=== PATIENT | male | born 1960 | race Caucasian/White ===

== ENCOUNTER 2016-11-27 14:58 | Emergency (ER) | payer MEDICARE ==
[2016-11-27] MEDS ORDERED: NS 0.9% 1000 ML* 1,000 ML IV ONE (16:01)
[2016-11-27 16:12] LABS: Hematocrit 43 % (42-52); Hemoglobin 14.7 g/dl (14.0-18.0); Mean Corpuscular HGB Conc 34 g/dl (31-36); Mean Corpuscular Hemoglobin 29 pg (27-31); Mean Corpuscular Volume 85 fL (80-94); Mean Platelet Volume 8 um3 (7.4-10.4); Red Blood Count 5.07 10^6/ul (4.0-5.4); Red Cell Distribution Width 13 % (10.5-15); White Blood Count 9.4 10^3/ul (3.5-10.8)
[2016-11-27 16:26] VITALS: BP 117/76
[2016-11-27 16:31] LABS: Albumin 3.6 g/dL (3.2-5.2); BUN/Creatinine Ratio 15.7 (8-20); Calcium 8.8 mg/dL (8.6-10.3); EGFR African American 96.8 (>60); EGFR Non-African American 75.3 (>60); Globulin 2.3 g/dL (2-4); Magnesium 1.9 mg/dL (1.9-2.7); Potassium 3.6 mmol/L (3.5-5.0); Total Bilirubin 0.3 mg/dL (0.2-1.0); Total Protein 5.9 g/dL (6.4-8.9)
[2016-11-27 16:53] LABS: TSH (Thyroid Stimulating Horm) 1.41 mcIU/mL (0.34-5.60)
[2016-11-27 17:11] LABS: Urine Bilirubin Negative (Negative); Urine Glucose Negative (Negative); Urine Nitrite Negative (Negative)
--- NOTE | 2016-11-28 21:15 | ED ---
Ceasar Marquez Adam, scribed for Shaq Ward MD on 11/27/16 at 1629 . Dizziness - HPI Summary HPI Summary: Pt is a 56 year old male presenting after an episode of dizziness which caused him to fall. He states that he was out in the sun less than an hour [employer] at the ED when he began to feel lightheaded. He states that he was unable to lower himself down slowly, so he fell to the ground. He c/o pain in his right hip but he states that the dizziness has subsided and he has no other complaints. Pt states that he has a tendency to get dizzy in the warm weather and he believes that this is what caused his dizziness today. - History Of Current Complaint Chief Complaint: EDDizziness Stated Complaint: DIZZY Time Seen by Provider: 11/27/16 15:07 Hx Obtained From: Patient Onset/Duration: Resolved Timing: Constant Severity Initially: Moderate Severity Currently: None Character: Lightheaded, Dizzy Aggravating Factor(s): Other - The heat outside Alleviating Factor(s): Other - Spontaneous resolution Associated Signs And Symptoms: Positive: Other: - Right hip pain - Allergies/Home Medications Allergies/Adverse Reactions: Allergies Allergy/AdvReac Type Severity Reaction Status Date / Time No Known Allergies Allergy Verified 05/25/14 13:14 PMH/Surg Hx/FS Hx/Imm Hx Cardiovascular History: Denies: Other Cardiovascular Problems/Disorders Respiratory History: Reports: Hx Asthma - NO INHALERS NEEDED Denies: Other Respiratory Problems/Disorders GI History: Denies: Other GI Disorders Musculoskeletal History: Denies: Other Musculoskeletal History Sensory History: Reports: Hx Cataracts - NU, Hx Contacts or Glasses - READING Denies: Hx Hearing Aid Opthamlomology History: Reports: Hx Cataracts - NU, Hx Contacts or Glasses - READING - Surgical History Surgery Procedure, Year, and Place: [facility], 2009, [facility] Hx Anesthesia Reactions: No Infectious Disease History: No Infectious Disease History: Denies: Traveled Outside the [place] in Last 30 Days - Family History Known Family History: Positive: Other - Negative malignant hyperthermia, negative anesthesia reaction - Social History Occupation: Disabled Lives: Alone Alcohol Use: None Hx Substance Use: No Substance Use Type: Reports: None Hx Tobacco Use: No Smoking Status (MU): Never Smoked Tobacco Review of Systems Positive: Arthralgia - Right hip Neurological: Other - Dizziness All Other Systems Reviewed And Are Negative: Yes Physical Exam Triage Information Reviewed: Yes Vital Signs On Initial Exam: Initial Vitals Pulse Pulse Ox 100 96 11/27/16 15:07 11/27/16 15:07 Vital Signs Reviewed: Yes Appearance: Positive: Well-Appearing, No Pain Distress Skin: Positive: Warm, Skin Color Reflects Adequate Perfusion, Dry Head/Face: Positive: Normal Head/Face Inspection Eyes: Positive: Normal ENT: Positive: Normal ENT inspection Neck: Positive: Supple, Nontender Respiratory/Lung Sounds: Positive: Clear to Auscultation, Breath Sounds Present Cardiovascular: Positive: RRR Abdomen Description: Positive: Nontender, Soft Bowel Sounds: Positive: Present Musculoskeletal: Positive: Normal Neurological: Positive: Normal Psychiatric: Positive: Affect/Mood Appropriate - [place] Coma Scale Coma Scale Total: 15 Diagnostics - Vital Signs Vital Signs Temp Pulse Resp BP Pulse Ox 11/27/16 16:00 92 14 117/76 96 11/27/16 15:30 102 14 120/75 96 11/27/16 15:08 99.4 F 101 24 125/74 97 11/27/16 15:07 100 96 - Laboratory Lab Results: Lab Results 11/27/16 Range/Units 15:57 WBC 9.4 (3.5-10.8) 10^3/ul RBC 5.07 (4.0-5.4) 10^6/ul Hgb 14.7 (14.0-18.0) g/dl Hct 43 (42-52) % MCV 85 (80-94) fL MCH 29 (27-31) pg MCHC 34 (31-36) g/dl RDW 13 (10.5-15) % Plt Count 196 (150-450) 10^3/ul MPV 8 (7.4-10.4) um3 Neut % (Auto) 80.1 (38-83) % Lymph % (Auto) 11.0 L (25-47) % [place] % (Auto) 7.4 (1-9) % Eos % (Auto) 0.7 (0-6) % Baso % (Auto) 0.8 (0-2) % Absolute Neuts (auto) 7.5 (1.5-7.7) 10^3/ul Absolute Lymphs (auto) 1.0 (1.0-4.8) 10^3/ul Absolute Monos (auto) 0.7 (0-0.8) 10^3/ul Absolute Eos (auto) 0.1 (0-0.6) 10^3/ul Absolute Basos (auto) 0.1 (0-0.2) 10^3/ul Absolute Nucleated RBC 0 10^3/ul Nucleated RBC % 0 Result Diagrams: 11/27/16 15:57 11/27/16 15:57 Lab Statement: Any lab studies that have been ordered have been reviewed, and results considered in the medical decision making process. - EKG 16:13 Cardiac Rate: NL - 86 BPM EKG Rhythm: Sinus Rhythm - Additional Comments Diagnostic Additional Comments: Troponin I - 0.00 Dizzy Course/Dx - Course Course Of Treatment: Mr. Castellanos improved with cooling down and rehydration. - Diagnoses Provider Diagnoses: Heat exhaustion Discharge - Discharge Plan Condition: Stable Disposition: HOME Patient Education Materials: Heat Exhaustion (ED) Referrals: Zakia Nagy NP [Primary Care Provider] - Additional Instructions: Follow up with your Primary Care Provider this week. The documentation as recorded by the Ceasar rios Adam accurately reflects the service I personally performed and the decisions made by me, Shaq Ward MD.
== END 2016-11-27 17:47 | disposition home or self-care (01) ==
LOC: ED 14:58
DX: T67.5XXA Heat exhaustion, unspecified, initial encounter (principal); R42 Dizziness and giddiness; M25.551 Pain in right hip; X30.XXXA Exposure to excessive natural heat, initial encounter; Y93.9 Activity, unspecified; Y92.9 Unspecified place or not applicable
CPT/HCPCS: 36415; 80053; 81003; 83605; 83735; 84443; 84484; 85025; 93005; 96360; 99282

== ENCOUNTER 2018-01-11 11:50 | Emergency (ER) | payer MEDICARE, MEDICAID ==
--- NOTE | 2018-01-11 12:59 | RAD ---
HISTORY: Syncope COMPARISONS: October 03, 2015 VIEWS: 1: frontal portable view of the chest at 12:51 PM FINDINGS: LINES AND TUBES: None. CARDIOMEDIASTINAL SILHOUETTE: The cardiomediastinal silhouette is normal for portable technique. PLEURA: The costophrenic angles are sharp. No pleural abnormalities are noted. LUNG PARENCHYMA: The lungs are clear. ABDOMEN: The upper abdomen is clear. There is no subphrenic gas. BONES AND SOFT TISSUES: No bone or soft tissue abnormalities are noted. IMPRESSION: NO ACTIVE CARDIOPULMONARY DISEASE.
--- NOTE | 2018-01-11 13:01 | RAD ---
HISTORY: Syncope COMPARISONS: May 25, 2014 TECHNIQUE: Multiple contiguous axial CT scans were obtained of the head without intravenous contrast. FINDINGS: The study is limited by patient motion artifact. HEMORRHAGE/INFARCT: There is no hemorrhage or acute infarct. MASSES/SHIFT: There is no mass or shift. EXTRA-AXIAL SPACES: There are no extra-axial fluid collections. SULCI AND VENTRICLES: The sulci and ventricles are normal in size and position for the patient's stated age. CEREBRUM: There are no focal parenchymal abnormalities. BRAINSTEM: There are no focal parenchymal abnormalities. CEREBELLUM: There are no focal parenchymal abnormalities. VESSELS: The vessels are grossly normal. PARANASAL SINUSES: The paranasal sinuses are clear. ORBITS: The orbits are unremarkable. BONES AND SOFT TISSUE: No bone or soft tissue abnormalities are noted. OTHER: None IMPRESSION: NO ACUTE INTRACRANIAL PATHOLOGY.
[2018-01-11] MEDS ORDERED: Ondansetron ODT TAB* 4 MG ONE (13:36)
[2018-01-11 13:43] LABS: ABS Basophils 0 10^3/ul (0-0.2); ABS Eosinophils 0 10^3/ul (0-0.6); ABS Lymphocytes 0.8 10^3/ul (1.0-4.8); ABS Monocytes 0.5 10^3/ul (0-0.8); ABS Neutrophils 7.1 10^3/ul (1.5-7.7); ABS Nucleated RBC 0 10^3/ul; Eosinophil % 0.3 % (0-6); Hematocrit 45 % (42-52); Hemoglobin 15.3 g/dl (14.0-18.0); Lymphocyte % 9.3 % (25-47); Mean Corpuscular HGB Conc 34 g/dl (31-36); Mean Corpuscular Hemoglobin 30 pg (27-31); Mean Corpuscular Volume 88 fL (80-94); Mean Platelet Volume 8.4 um3 (7.4-10.4); Nucleated Red Blood Cells % 0; Platelet Count 184 10^3/ul (150-450); Red Blood Count 5.07 10^6/ul (4.0-5.4); Red Cell Distribution Width 14 % (10.5-15); White Blood Count 8.5 10^3/ul (3.5-10.8)
[2018-01-11 13:44] LABS: Urine Appearance Clear; Urine Blood Negative (Negative); Urine Color Straw; Urine Ketones Negative (Negative); Urine Protein Negative (Negative); Urine Specific Gravity 1.001 (1.010-1.030); Urine Urobilinogen Negative (Negative)
[2018-01-11] MEDS: Ondansetron INJ* 2 MG/ML VIAL IV ONE ×2 (13:50→15:27)
[2018-01-11 14:02] LABS: EGFR Non-African American 68.8 (>60)
[2018-01-11] MEDS ORDERED: Ondansetron ODT TAB* 4 MG PO ONE (15:26)
[2018-01-11 15:33] VITALS: BP 138/92
--- NOTE | 2018-01-11 20:57 | ED ---
Dat Marquez Rebecca, scribed for Rock Gill MD on 01/11/18 at 1204 . Dizziness - HPI Summary HPI Summary: Pt is a 57 y/o M BIBA who presents to ED s/p near syncopal episode. While walking home, he suddenly became dizzy, described as near syncopal. Sx aggravated by nothing, alleviated by spontaneous resolution. Currently, the pt reports that he feels well and sx have resolved. Denies CP, SOB, palpitations, BLACK, blurred vision, diarrhea, constipation. Prior similar episode last year. Confirms he has been eating and drinking. - History Of Current Complaint Chief Complaint: EDDizziness Stated Complaint: WEAKNESS Time Seen by Provider: 01/11/18 12:02 Hx Obtained From: Patient Onset/Duration: Resolved Timing: Intermittent Episode Lasting Severity Currently: None Character: Dizzy - Near syncopal Aggravating Factor(s): Nothing Alleviating Factor(s): Other - Spontaneous resolution Associated Signs And Symptoms: Positive: Negative. Negative: Diarrhea, Chest Pain, SOB, Palpitations, Visual Changes - Allergies/Home Medications Allergies/Adverse Reactions: Allergies Allergy/AdvReac Type Severity Reaction Status Date / Time No Known Allergies Allergy Verified 01/11/18 11:57 Home Medications: Home Medications CloZAPine TAB* 300 mg PO DAILY 01/11/18 [History Confirmed 01/11/18] PMH/Surg Hx/FS Hx/Imm Hx Cardiovascular History: Denies: Other Cardiovascular Problems/Disorders Respiratory History: Reports: Hx Asthma - NO INHALERS NEEDED Denies: Other Respiratory Problems/Disorders GI History: Denies: Other GI Disorders Musculoskeletal History: Denies: Other Musculoskeletal History Sensory History: Reports: Hx Cataracts - NU, Hx Contacts or Glasses - READING Denies: Hx Hearing Aid Opthamlomology History: Reports: Hx Cataracts - NU, Hx Contacts or Glasses - READING Psychiatric History: Reports: Hx Schizophrenia - Surgical History Surgery Procedure, Year, and Place: [facility], 2009, [facility] Hx Anesthesia Reactions: No Infectious Disease History: No Infectious Disease History: Denies: Traveled Outside the [place] in Last 30 Days - Family History Known Family History: Positive: Other - Negative malignant hyperthermia, negative anesthesia reaction - Social History Alcohol Use: None Hx Substance Use: No Substance Use Type: Reports: None Hx Tobacco Use: No Smoking Status (MU): Never Smoked Tobacco Review of Systems Negative: Blurred Vision Negative: Palpitations, Chest Pain Negative: Shortness Of Breath Positive: Other - NEGATIVE: Constipation. Negative: Diarrhea Neurological: Other - Dizziness - near syncopal - resolved Negative: Headache All Other Systems Reviewed And Are Negative: Yes Physical Exam - Summary Physical Exam Summary: VITAL SIGNS: Reviewed. GENERAL: ~Patient is a disheveled male in no acute distress who is lying comfortable in the stretcher. ~Patient is not in any acute respiratory distress. Poor hygiene. HEAD AND FACE: No signs of trauma. ~No ecchymosis, hematomas or skull depressions. No sinus tenderness. EYES: PERRLA, EOMI x 2, No injected conjunctiva, no nystagmus. EARS: Hearing grossly intact. Ear canals and tympanic membranes are within normal limits. MOUTH: Oropharynx within normal limits. NECK: Supple, trachea is midline, no adenopathy, no JVD, no carotid bruit, no c- spine tenderness, neck with full ROM. CHEST: Symmetric, no tenderness at palpation LUNGS: Clear to auscultation bilaterally. No wheezing or crackles. CVS: Regular rate and rhythm, S1 and S2 present, no murmurs or gallops appreciated. ABDOMEN: Soft, non-tender. No signs of distention. No rebound no guarding, and no masses palpated. Bowel sounds are normal. EXTREMITIES: FROM in all major joints, no edema, no cyanosis or clubbing. NEURO: Alert and oriented x 3. No acute neurological deficits. Speech is normal and follows commands. SKIN: Dry and warm GCS: 15 Triage Information Reviewed: Yes Vital Signs On Initial Exam: Initial Vitals Temp Pulse Resp BP Pulse Ox 98.1 F 90 16 127/92 96 01/11/18 11:58 01/11/18 11:58 01/11/18 11:58 01/11/18 11:58 01/11/18 11:58 Vital Signs Reviewed: Yes Diagnostics - Vital Signs Vital Signs Temp Pulse Resp BP Pulse Ox 01/11/18 11:58 98.1 F 90 16 127/92 96 - Laboratory Lab Results: Lab Results 01/11/18 01/11/18 01/11/18 Range/Units 13:31 13:31 13:31 WBC 8.5 (3.5-10.8) 10^3/ul RBC 5.07 (4.0-5.4) 10^6/ul Hgb 15.3 (14.0-18.0) g/dl Hct 45 (42-52) % MCV 88 (80-94) fL MCH 30 (27-31) pg MCHC 34 (31-36) g/dl RDW 14 (10.5-15) % Plt Count 184 (150-450) 10^3/ul MPV 8.4 (7.4-10.4) um3 Neut % (Auto) 83.7 H (38-83) % Lymph % (Auto) 9.3 L (25-47) % [place] % (Auto) 6.2 (0-7) % Eos % (Auto) 0.3 (0-6) % Baso % (Auto) 0.5 (0-2) % Absolute Neuts (auto) 7.1 (1.5-7.7) 10^3/ul Absolute Lymphs (auto) 0.8 L (1.0-4.8) 10^3/ul Absolute Monos (auto) 0.5 (0-0.8) 10^3/ul Absolute Eos (auto) 0 (0-0.6) 10^3/ul Absolute Basos (auto) 0 (0-0.2) 10^3/ul Absolute Nucleated RBC 0 10^3/ul Nucleated RBC % 0 Sodium 137 L (139-145) mmol/L Potassium 4.0 (3.5-5.0) mmol/L Chloride 105 (101-111) mmol/L Carbon Dioxide 25 (22-32) mmol/L Anion Gap 7 (2-11) mmol/L BUN 7 (6-24) mg/dL Creatinine 1.10 (0.67-1.17) mg/dL Est GFR ( Amer) 88.4 (>60) Est GFR (Non-Af Amer) 68.8 (>60) BUN/Creatinine Ratio 6.4 L (8-20) Glucose 103 H (70-100) mg/dL Calcium 9.2 (8.6-10.3) mg/dL Magnesium 2.0 (1.9-2.7) mg/dL Total Bilirubin 0.70 (0.2-1.0) mg/dL AST 19 (13-39) U/L ALT 12 (7-52) U/L Alkaline Phosphatase 207 H (34-104) U/L Troponin I 0.00 (<0.04) ng/mL B-Natriuretic Peptide ( - 100) pg/mL Total Protein 6.2 L (6.4-8.9) g/dL Albumin 3.8 (3.2-5.2) g/dL Globulin 2.4 (2-4) g/dL Albumin/Globulin Ratio 1.6 (1-3) TSH 1.32 (0.34-5.60) mcIU/mL Urine Color Straw Urine Appearance Clear Urine pH 7.0 (5-9) Ur Specific [place] 1.001 L (1.010-1.030) Urine Protein Negative (Negative) Urine Ketones Negative (Negative) Urine Blood Negative (Negative) Urine Nitrate Negative (Negative) Urine Bilirubin Negative (Negative) Urine Urobilinogen Negative (Negative) Ur Leukocyte Esterase Negative (Negative) Urine Glucose Negative (Negative) Urine Opiates Screen (None Detect) Ur Barbiturates Screen (None Detect) Ur Phencyclidine Scrn (None Detect) Ur Amphetamines Screen (None Detect) U Benzodiazepines Scrn (None Detect) Urine Cocaine Screen (None Detect) U Cannabinoids Screen (None Detect) Serum Alcohol < 10 (<10) mg/dL 01/11/18 01/11/18 Range/Units 13:31 13:31 WBC (3.5-10.8) 10^3/ul RBC (4.0-5.4) 10^6/ul Hgb (14.0-18.0) g/dl Hct (42-52) % MCV (80-94) fL MCH (27-31) pg MCHC (31-36) g/dl RDW (10.5-15) % Plt Count (150-450) 10^3/ul MPV (7.4-10.4) um3 Neut % (Auto) (38-83) % Lymph % (Auto) (25-47) % [place] % (Auto) (0-7) % Eos % (Auto) (0-6) % Baso % (Auto) (0-2) % Absolute Neuts (auto) (1.5-7.7) 10^3/ul Absolute Lymphs (auto) (1.0-4.8) 10^3/ul Absolute Monos (auto) (0-0.8) 10^3/ul Absolute Eos (auto) (0-0.6) 10^3/ul Absolute Basos (auto) (0-0.2) 10^3/ul Absolute Nucleated RBC 10^3/ul Nucleated RBC % Sodium (139-145) mmol/L Potassium (3.5-5.0) mmol/L Chloride (101-111) mmol/L Carbon Dioxide (22-32) mmol/L Anion Gap (2-11) mmol/L BUN (6-24) mg/dL Creatinine (0.67-1.17) mg/dL Est GFR ( Amer) (>60) Est GFR (Non-Af Amer) (>60) BUN/Creatinine Ratio (8-20) Glucose (70-100) mg/dL Calcium (8.6-10.3) mg/dL Magnesium (1.9-2.7) mg/dL Total Bilirubin (0.2-1.0) mg/dL AST (13-39) U/L ALT (7-52) U/L Alkaline Phosphatase (34-104) U/L Troponin I (<0.04) ng/mL B-Natriuretic Peptide 9 ( - 100) pg/mL Total Protein (6.4-8.9) g/dL Albumin (3.2-5.2) g/dL Globulin (2-4) g/dL Albumin/Globulin Ratio (1-3) TSH (0.34-5.60) mcIU/mL Urine Color Urine Appearance Urine pH (5-9) Ur Specific [place] (1.010-1.030) Urine Protein (Negative) Urine Ketones (Negative) Urine Blood (Negative) Urine Nitrate (Negative) Urine Bilirubin (Negative) Urine Urobilinogen (Negative) Ur Leukocyte Esterase (Negative) Urine Glucose (Negative) Urine Opiates Screen None detected (None Detect) Ur Barbiturates Screen None detected (None Detect) Ur Phencyclidine Scrn None detected (None Detect) Ur Amphetamines Screen None detected (None Detect) U Benzodiazepines Scrn None detected (None Detect) Urine Cocaine Screen None detected (None Detect) U Cannabinoids Screen None detected (None Detect) Serum Alcohol (<10) mg/dL Result Diagrams: 01/11/18 13:31 01/11/18 13:31 Lab Statement: Any lab studies that have been ordered have been reviewed, and results considered in the medical decision making process. - Radiology CXR Xray Interpretation: No Acute Changes - NO ACTIVE CARDIOPULMONARY DISEASE. ED physician reviewed this radiology report. Radiology Interpretation Completed By: Radiologist - CT Brain CT CT Interpretation: No Acute Changes CT Interpretation Completed By: Radiologist - EKG 1157 Cardiac Rate: NL - 90 bpm EKG Rhythm: Sinus Rhythm EKG Interpretation: No ST elevations Re-Evaluation - Re-Evaluation First Eval Re-Evaluation Time: 15:06 Change: Improved Comment: Pt is feeling better, as long as he is lying down. Second Eval Re-Evaluation Time: 15:25 Comment: Ambulated the pt who is feeling very well at this time. Dizzy Course/Dx - Course Assessment/Plan: The patient is a 49-year-old male who presents to the emergency room the ambulance with a chief complaint of having a syncopal episode. Patient reports that he was walking in the street and suddenly he fainted. He denies any loss of consciousness. Blood test results without any significant abnormality. Urinalysis is negative for UTI. Head CT impression: no acute intracranial pathology. Chest x-ray impression: No active cardiopulmonary disease. In the ED course the patient was placed in a tax compliance agent, IV access was obtained and the patient was given IV fluids. The patient had an episode of nausea and vomiting therefore the patient was given Zofran. Blood work without any significant abnormality except for sodium level 137 and glucose 103, troponin 0.00, urinalysis is negative for UTI and urine tox is negative. In the ER course the patient was hydrated and given Zofran and his symptoms have improved. At this point the patient reports any other symptoms. I ambulated the patient on the ER with a good steady walk and he doesn t have any dizziness. I discussed all the findings and test results with the patient. Patient was instructed to return to the emergency room immediately if any of the symptoms return or worsens. Plan of care was discussed with the patient and understands and agrees. All questions were answered at patient satisfaction. There were no further complaints or concerns. Lung exam before discharge: CTA B/L. Good air exchange. No wheezing or crackles heard. CVS: S1 and S2 present. No murmurs appreciated. Patient is alert and oriented x 3. Patient is hemodynamically stable. Patient will be discharged home with follow up PCP in the next 2-3 days - Diagnoses Differential Diagnosis/HQI/PQRI: Anxiety, Coronary Artery Disease, Dysrhythmia, Seizure, Transient Ischemic Attack Provider Diagnoses: Fainting, Dizziness Discharge - Sign-Out/Discharge Documenting (check all that apply): Discharge/Admit/Transfer - Discharge - Discharge Plan Condition: Stable Disposition: HOME Patient Education Materials: Dizziness (ED) Referrals: Brina Evangelista MD [Primary Care Provider] - 3 Days Additional Instructions: RETURN TO ED FOR ANY NEW OR WORSENING SYMPTOMS. The documentation as recorded by the Dat rios Rebecca accurately reflects the service I personally performed and the decisions made by Jairo gallego Walter, MD.
== END 2018-01-11 15:38 | disposition home or self-care (01) ==
LOC: ED 11:50
DX: R55 Syncope and collapse (principal); R42 Dizziness and giddiness; J45.909 Unspecified asthma, uncomplicated; Z79.899 Other long term (current) drug therapy; F25.1 Schizoaffective disorder, depressive type
CPT/HCPCS: 36415; 70450; 71045; 80053; 80307; 80320; 81003; 83735; 83880; 84443; 84484; 85025; 93005; 99283; A9270-GY; G0480

== ENCOUNTER 2018-02-02 17:19 | Emergency (ER) | payer MEDICARE, MEDICAID ==
[2018-02-02] MEDS ORDERED: Ondansetron ODT TAB* 4 MG PO ONE ×2 (17:43→23:25)
[2018-02-02] MEDS ORDERED: NS 0.9% 1000 ML* 1,000 ML IV ONE (17:43)
[2018-02-02 17:47] LABS: ABS Basophils 0.1 10^3/ul (0-0.2); ABS Eosinophils 0 10^3/ul (0-0.6); ABS Lymphocytes 0.6 10^3/ul (1.0-4.8); ABS Monocytes 0.6 10^3/ul (0-0.8); ABS Neutrophils 7.5 10^3/ul (1.5-7.7); ABS Nucleated RBC 0 10^3/ul; Eosinophil % 0.5 % (0-6); Hematocrit 46 % (42-52); Hemoglobin 15.4 g/dl (14.0-18.0); Lymphocyte % 6.7 % (25-47); Mean Corpuscular HGB Conc 34 g/dl (31-36); Mean Corpuscular Hemoglobin 30 pg (27-31); Mean Corpuscular Volume 89 fL (80-94); Mean Platelet Volume 8.3 um3 (7.4-10.4); Nucleated Red Blood Cells % 0; Platelet Count 170 10^3/ul (150-450); Red Blood Count 5.13 10^6/ul (4.00-5.40); Red Cell Distribution Width 14 % (10.5-15); White Blood Count 8.7 10^3/ul (3.5-10.8)
--- NOTE | 2018-02-02 17:52 | ED ---
Syncope/Near Syncope - HPI Summary HPI Summary: Patient from [place] complains of lightheadedness, N/V 4 after walking a mile to his mother's house. Denies dizziness, states he almost passed out. Denies LOC. Still feeling mildly lightheaded, and nauseous here in the ED. States he has a history of being lightheaded when it gets hot out. States he drank 2 bottles of water while he was walking. Denies fever, cough, sore throat, CP, SOB, diarrhea, abdominal pain, change in urinary BM. Medical history schizoaffective affective disorder, bipolar. Per patient and patient's mother, patient has no history of cardiac or pulmonary disease. Denies smoking, EtOH illegal drug use. - History Of Current Complaint Chief Complaint: EDDizziness Time Seen by Provider: 02/02/18 17:31 Hx Obtained From: Patient, Family/[employer] Onset/Duration: Sudden Onset Timing: Intermittent Episode Lasting Aggravating Factor(s): Exertion Alleviating Factor(s): Rest Associated Signs And Symptoms: Lightheadedness, Vomiting - Allergies/Home Medications Allergies/Adverse Reactions: Allergies Allergy/AdvReac Type Severity Reaction Status Date / Time No Known Allergies Allergy Verified 01/11/18 11:57 Home Medications: Home Medications Benztropine TAB* [Cogentin TAB*] 1 mg PO DAILY 02/02/18 [History Confirmed 02/02] PMH/Surg Hx/FS Hx/Imm Hx Endocrine/Hematology History: Denies: Hx Anticoagulant Therapy Cardiovascular History: Denies: Hx Cardiac Arrest, Other Cardiovascular Problems/Disorders Respiratory History: Reports: Hx Asthma - NO INHALERS NEEDED Denies: Other Respiratory Problems/Disorders GI History: Reports: Hx Gall Bladder Disease Denies: Other GI Disorders History: Denies: Hx Dialysis Musculoskeletal History: Denies: Other Musculoskeletal History Sensory History: Reports: Hx Cataracts - NU, Hx Contacts or Glasses - READING Denies: Hx Hearing Aid Opthamlomology History: Reports: Hx Cataracts - NU, Hx Contacts or Glasses - READING EENT History: Denies: Hx Deafness Psychiatric History: Reports: Hx Schizophrenia - Surgical History Surgery Procedure, Year, and Place: GALLBLADDER, 2009, [facility] Hx Anesthesia Reactions: No Infectious Disease History: No Infectious Disease History: Denies: Traveled Outside the [place] in Last 30 Days - Family History Known Family History: Positive: Other - Negative malignant hyperthermia, negative anesthesia reaction - Social History Alcohol Use: None Hx Substance Use: No Substance Use Type: Reports: None Hx Tobacco Use: No Smoking Status (MU): Never Smoked Tobacco Review of Systems Constitutional: Negative Eyes: Negative ENT: Negative Cardiovascular: Negative Respiratory: Negative Positive: Vomiting, Nausea Genitourinary: Negative Musculoskeletal: Negative Skin: Negative Neurological: Negative Psychological: Normal All Other Systems Reviewed And Are Negative: Yes Physical Exam - Summary Physical Exam Summary: Patient nontoxic appearing. Alert, coherent, responds appropriately. Triage Information Reviewed: Yes Vital Signs On Initial Exam: Initial Vitals Temp Pulse Resp BP Pulse Ox 98 F 82 16 110/72 99 02/02/18 17:22 02/02/18 17:22 02/02/18 17:22 02/02/18 17:22 02/02/18 17:22 Vital Signs Reviewed: Yes Appearance: Positive: Well-Appearing Skin: Positive: Warm Head/Face: Positive: Normal Head/Face Inspection Eyes: Positive: Normal Neck: Positive: Supple Respiratory/Lung Sounds: Positive: Clear to Auscultation Cardiovascular: Positive: Normal Abdomen Description: Positive: Nontender Musculoskeletal: Positive: Normal Neurological: Positive: Normal Psychiatric: Positive: Normal AVPU Assessment: Alert - Gabriela Coma Scale Best Eye Response: 4 - Spontaneous Best Motor Response: 6 - Obeys Commands Best Verbal Response: 5 - Oriented Coma Scale Total: 15 Diagnostics - Vital Signs Vital Signs Temp Pulse Resp BP Pulse Ox 02/02/18 17:22 98 F 82 16 110/72 99 - Laboratory Result Diagrams: 02/02/18 17:39 02/02/18 17:39 Lab Statement: Any lab studies that have been ordered have been reviewed, and results considered in the medical decision making process. - Radiology cxr Xray Interpretation: Positive (See Comments) - Patchy right basilar atelectasis versus consolidation. Radiology Interpretation Completed By: Radiologist - EKG 1 Cardiac Rate: Tachycardia EKG Rhythm: Sinus Rhythm ST Segment: Non-Specific Ectopy: None Re-Evaluation - Re-Evaluation 1 Re-Evaluation Time: 00:25 Comment: Nausea vomiting controlled with Zofran. Course/Dx Course Of Treatment: Patient from [place] complains of lightheadedness, N/V 4 after walking a mile to his mother's house. Denies dizziness, states he almost passed out. Denies LOC. Still feeling mildly lightheaded, and nauseous here in the ED. States he has a history of being lightheaded when it gets hot out. States he drank 2 bottles of water while he was walking. Denies fever, cough, sore throat, CP, SOB, diarrhea, abdominal pain, change in urinary BM. Medical history schizoaffective affective disorder, bipolar. Per patient and patient's mother, patient has no history of cardiac or pulmonary disease. Denies smoking , EtOH illegal drug use. PE: Patient nontoxic appearing. Alert, coherent, responds appropriately. W/UP: Labs, vital signs unremarkable. Chest x-ray non- definitive. Patient had no respiratory symptoms. History of lightheadedness when it is hot out. Patient walked a mile to his mother's house. Nausea vomiting resolved with Zofran. Rx for same. Follow-up with primary care - Diagnoses Provider Diagnoses: Lightheadedness, Nausea & vomiting Discharge - Sign-Out/Discharge Documenting (check all that apply): Discharge/Admit/Transfer - Discharge Plan Condition: Stable Disposition: HOME Prescriptions: Ondansetron ODT TAB* [Zofran 4 MG Odt TAB*] 4 mg PO Q8H PRN 4 Days #14 tab.odt PRN Reason: Nausea Patient Education Materials: Acute Nausea and Vomiting (ED), Lightheadedness ( ED) Referrals: Brina Evangelista MD [Primary Care Provider] - Additional Instructions: Follow-up with primary care. Drink plenty of fluids to maintain hydration. Return to the ED for any new or worsening symptoms - Billing Disposition and Condition Condition: STABLE Disposition: Home
[2018-02-02 18:05] LABS: EGFR Non-African American 58.8 (>60)
[2018-02-02 19:26] LABS: Urine Appearance Clear; Urine Blood Negative (Negative); Urine Color Yellow; Urine Ketones Negative (Negative); Urine Protein Negative (Negative); Urine Specific Gravity 1.005 (1.010-1.030); Urine Urobilinogen Negative (Negative)
--- NOTE | 2018-02-02 21:50 | RAD ---
HISTORY: lightheadedness COMPARISONS: None VIEWS: 4: Frontal dual-energy and lateral views of the chest. The patient is obliqued to the left. FINDINGS: CARDIOMEDIASTINAL SILHOUETTE: The cardiomediastinal silhouette is normal. TERESA: The teresa are normal. PLEURA: The costophrenic angles are sharp. No pleural abnormalities are noted. LUNG PARENCHYMA: There is patchy alveolar opacification of the right lower lung near the cardiophrenic angle. ABDOMEN: The upper abdomen is clear. There is no subphrenic gas. BONES AND SOFT TISSUES: No bone or soft tissue abnormalities are noted. OTHER: None. IMPRESSION: PATCHY RIGHT BASILAR ATELECTASIS VERSUS CONSOLIDATION. RECOMMEND FOLLOW-UP UNTIL RESOLUTION TO EXCLUDE UNDERLYING PULMONARY PARENCHYMAL PATHOLOGY.
[2018-02-03 00:36] VITALS: BP 113/72
== END 2018-02-03 00:35 | disposition home or self-care (01) ==
LOC: ED 17:19
DX: R42 Dizziness and giddiness (principal); R11.2 Nausea with vomiting, unspecified; R00.0 Tachycardia, unspecified
CPT/HCPCS: 36415; 71046; 80053; 81003; 83605; 85025; 85379; 86140; 93005; 96360; 99283; A9270-GY

== ENCOUNTER 2018-02-25 15:33 | Emergency (ER) | payer MEDICARE, MEDICAID ==
[2018-02-25] MEDS ORDERED: NS 0.9% 1000 ML* 1,000 ML IV ONE ×2 (16:06→18:08)
[2018-02-25 16:21] LABS: ABS Basophils 0 10^3/ul (0-0.2); ABS Eosinophils 0 10^3/ul (0-0.6); ABS Lymphocytes 0.6 10^3/ul (1.0-4.8); ABS Monocytes 0.6 10^3/ul (0-0.8); ABS Neutrophils 7.3 10^3/ul (1.5-7.7); ABS Nucleated RBC 0 10^3/ul; Eosinophil % 0.3 % (0-6); Hematocrit 44 % (42-52); Lymphocyte % 6.8 % (25-47); Mean Corpuscular HGB Conc 34 g/dl (31-36); Mean Corpuscular Hemoglobin 30 pg (27-31); Mean Corpuscular Volume 88 fL (80-94); Mean Platelet Volume 8.2 um3 (7.4-10.4); Nucleated Red Blood Cells % 0.1; Platelet Count 178 10^3/ul (150-450); Red Blood Count 5.01 10^6/ul (4.00-5.40); Red Cell Distribution Width 14 % (10.5-15); White Blood Count 8.6 10^3/ul (3.5-10.8)
[2018-02-25 16:29] LABS: INR 0.99 (0.77-1.02)
[2018-02-25 16:58] LABS: EGFR Non-African American 65.3 (>60)
[2018-02-25] MEDS ORDERED: Ondansetron INJ* 2 MG/ML VIAL IV ONE (18:08)
[2018-02-25 19:35] VITALS: BP 124/83
--- NOTE | 2018-02-26 06:58 | ED ---
Pedro Marquez Angela, scribed for Shaq Ward MD on 02/25/18 at 1559 . Syncope/Near Syncope - HPI Summary HPI Summary: This pt is a 57 y/o male presenting to [facility] via EMS for a witnessed syncope today. EMS reports the pt was visiting his mother at [employer] when he syncopized. Pt states he was ambulating outside when his "legs gave out and fell." He notes he felt lightheaded prior to the syncopal episode. Denies nausea , any pain, chest pain, abd pain. Denies any injuries post syncopal episode. He states he has not been drinking enough water. Per EMS, pt has hx of syncope with dehydration. - History Of Current Complaint Chief Complaint: EDSyncope Time Seen by Provider: 02/25/18 15:46 Hx Obtained From: Patient Onset/Duration: Sudden Onset, Resolved Activity At Onset: Other - while ambulating Associated Head Trauma: No Aggravating Factor(s): Nothing Alleviating Factor(s): Spontaneous Resolution Associated Signs And Symptoms: Lightheadedness - Allergies/Home Medications Allergies/Adverse Reactions: Allergies Allergy/AdvReac Type Severity Reaction Status Date / Time No Known Allergies Allergy Verified 01/11/18 11:57 PMH/Surg Hx/FS Hx/Imm Hx Endocrine/Hematology History: Denies: Hx Anticoagulant Therapy Cardiovascular History: Denies: Hx Cardiac Arrest, Other Cardiovascular Problems/Disorders Respiratory History: Reports: Hx Asthma - NO INHALERS NEEDED Denies: Other Respiratory Problems/Disorders GI History: Reports: Hx Gall Bladder Disease Denies: Other GI Disorders History: Denies: Hx Dialysis Musculoskeletal History: Denies: Other Musculoskeletal History Sensory History: Reports: Hx Cataracts - UN, Hx Contacts or Glasses - READING Denies: Hx Deafness, Hx Hearing Aid Opthamlomology History: Reports: Hx Cataracts - NU, Hx Contacts or Glasses - READING Psychiatric History: Reports: Hx Schizophrenia, Hx Bipolar Disorder - Surgical History Surgery Procedure, Year, and Place: [facility], 2009, [facility] Hx Anesthesia Reactions: No Infectious Disease History: No Infectious Disease History: Denies: Traveled Outside the [place] in Last 30 Days - Family History Known Family History: Positive: Other - Negative malignant hyperthermia, negative anesthesia reaction - Social History Alcohol Use: None Hx Substance Use: No Substance Use Type: Reports: None Hx Tobacco Use: No Smoking Status (MU): Never Smoked Tobacco Review of Systems Negative: Fever, Chills Negative: Chest Pain Negative: Abdominal Pain, Nausea Neurological: Other - POS: lightheadedness Positive: Syncope All Other Systems Reviewed And Are Negative: Yes Physical Exam - Summary Physical Exam Summary: Appearance: The patient is well-nourished in no acute distress and in no acute pain. Skin: The skin is warm and skin color reflects adequate perfusion. Pt is a little diaphoretic. HEENT: The head is normocephalic and atraumatic. The pupils are equal and reactive. The conjunctivae are clear and without drainage. Nares are patent and without drainage. Mouth reveals moist mucous membranes and the throat is without erythema and exudate. The external ears are intact. The ear canals are patent and without drainage. The tympanic membranes are intact. Neck: the neck is supple with full range of motion and non-tender. There are no carotid bruits. There is no neck vein distension. Respiratory: Chest is non-tender. Lungs are clear to auscultation and breath sounds are symmetrical and equal. Cardiovascular: Heart is regular rate and rhythm. There is no murmur or rub auscultated. There is no peripheral edema and pulses are symmetrical and equal. Abdomen: The abdomen is soft and non-tender. There are normal bowel sounds heard in all four quadrants and there is no organomegaly palpated. Musculoskeletal: There is no back tenderness noted. Extremities are non-tender with full range of motion. There is good capillary refill. There is no peripheral edema or calf tenderness elicited. Neurological: Patient is alert and oriented to person, place and time. The patient has symmetrical motor strength in all four extremities. Cranial nerves are grossly intact. Deep tendon reflexes are symmetrical and equal in all four extremities. Psychiatric: The patient has an appropriate affect and does not exhibit any anxiety or depression. Triage Information Reviewed: Yes Vital Signs On Initial Exam: Initial Vitals Temp Pulse Resp BP Pulse Ox 97.6 F 91 16 119/80 96 02/25/18 15:44 02/25/18 15:44 02/25/18 15:44 02/25/18 15:44 02/25/18 15:44 Vital Signs Reviewed: Yes Diagnostics - Vital Signs Vital Signs Temp Pulse Resp BP Pulse Ox 02/25/18 15:44 97.6 F 91 16 119/80 96 - Laboratory Result Diagrams: 02/25/18 16:10 02/25/18 16:10 Lab Statement: Any lab studies that have been ordered have been reviewed, and results considered in the medical decision making process. - EKG 16:26 Cardiac Rate: NL - at 87 bpm EKG Rhythm: Sinus Rhythm EKG Interpretation: Non-specific inferior changes. Course/Dx Course Of Treatment: Mr. Castellanos presented to the emergency department after what sounds like a vagal episode. He had been out in the heat and felt overheated that began to feel lightheaded and dizzy and went down. He recovered fairly quickly but feels nauseated on arrival to the emergency department. His lab workup was unremarkable and he was observed here in the emergency department on the monitor while he was given IV normal saline and Zofran. He improved and was discharged in stable condition. - Diagnoses Provider Diagnoses: Heat exhaustion, Vasovagal syncope Discharge - Sign-Out/Discharge Documenting (check all that apply): Discharge/Admit/Transfer - Discharge - Discharge Plan Condition: Stable Disposition: HOME Patient Education Materials: Heat Exhaustion (ED) Referrals: Brina Evangelista MD [Primary Care Provider] - Additional Instructions: Please follow up with your primary care provider in 2-3 days. RETURN TO THE ED FOR ANY WORSENING SYMPTOMS. - Billing Disposition and Condition Condition: STABLE Disposition: Home The documentation as recorded by the Pedro rios Angela, SCRIBE accurately reflects the service I personally performed and the decisions made by me, Shaq Ward MD.
== END 2018-02-25 19:35 | disposition home or self-care (01) ==
LOC: ED 15:33
DX: T67.5XXA Heat exhaustion, unspecified, initial encounter (principal); R55 Syncope and collapse; X30.XXXA Exposure to excessive natural heat, initial encounter; Y92.9 Unspecified place or not applicable
CPT/HCPCS: 36415; 80053; 80320; 83605; 83735; 84443; 84484; 85025; 85610; 93005; 96374; 99283; G0480

== ENCOUNTER 2018-05-29 12:12 | Emergency (ER) | payer MEDICARE, MEDICAID ==
[2018-05-29] MEDS ORDERED: Meclizine TAB* 12.5 MG PO ONE (12:31)
[2018-05-29] MEDS ORDERED: Ondansetron INJ* 2 MG/ML VIAL IV ONE (12:31)
[2018-05-29] MEDS ORDERED: NS 0.9% 1000 ML* 1,000 ML IV ONE (12:31)
--- NOTE | 2018-05-29 12:34 | ED ---
Dizziness - HPI Summary HPI Summary: This pt is a 57 y/o male presenting to [facility] via EMS for dizziness today. EMS reports pt was walking to his [place] facility from [employer] [facility] [employer] when he became dizzy. Per EMS pt knocked on someone's door and states he was going to fall down. Denies room spinning sensation. He is unable to describe his dizziness. He additionally notes feeling nauseous. EMS was called and they report blood glucose of 157. Denies headache, SOB, chest pain, palpitations. Pt lives at [facility]. - History Of Current Complaint Stated Complaint: DIZZY Time Seen by Provider: 05/29/18 12:17 Hx Obtained From: Patient, EMS Onset/Duration: Suddenly Timing: Constant Severity Currently: Moderate Character: Dizzy, Unable To Describe Aggravating Factor(s): Nothing Alleviating Factor(s): Nothing Associated Signs And Symptoms: Positive: Nausea. Negative: Chest Pain, SOB, Palpitations, Fever, Chills, Other: - headache - Allergies/Home Medications Allergies/Adverse Reactions: Allergies Allergy/AdvReac Type Severity Reaction Status Date / Time bee venom protein (honey bee) Allergy Difficulty Verified 05/29/18 12:26 Breathing PMH/Surg Hx/FS Hx/Imm Hx Endocrine/Hematology History: Denies: Hx Anticoagulant Therapy Cardiovascular History: Denies: Hx Cardiac Arrest, Other Cardiovascular Problems/Disorders Respiratory History: Reports: Hx Asthma - NO INHALERS NEEDED Denies: Other Respiratory Problems/Disorders GI History: Reports: Hx Gall Bladder Disease Denies: Other GI Disorders History: Denies: Hx Dialysis Musculoskeletal History: Denies: Other Musculoskeletal History Sensory History: Reports: Hx Cataracts - NU, Hx Contacts or Glasses - READING Denies: Hx Deafness, Hx Hearing Aid Opthamlomology History: Reports: Hx Cataracts - NU, Hx Contacts or Glasses - READING Psychiatric History: Reports: Hx Schizophrenia, Hx Bipolar Disorder - Surgical History Surgery Procedure, Year, and Place: , 2009, [facility] Hx Anesthesia Reactions: No Infectious Disease History: No Infectious Disease History: Denies: Traveled Outside the [place] in Last 30 Days - Family History Known Family History: Positive: Other - Negative malignant hyperthermia, negative anesthesia reaction - Social History Alcohol Use: None Hx Substance Use: No Substance Use Type: Reports: None Hx Tobacco Use: No Smoking Status (MU): Never Smoked Tobacco Review of Systems Negative: Fever, Chills Negative: Palpitations, Chest Pain Negative: Shortness Of Breath Positive: Nausea Neurological: Other - POS: dizziness Negative: Headache All Other Systems Reviewed And Are Negative: Yes Physical Exam - Summary Physical Exam Summary: VITAL SIGNS: Reviewed. GENERAL: Patient is a well-developed and nourished male who is lying comfortable in the stretcher. Patient is not in any acute respiratory distress. HEAD AND FACE: No signs of trauma. No ecchymosis, hematomas or skull depressions. No sinus tenderness. EYES: PERRLA, EOMI x 2, No injected conjunctiva, no nystagmus. EARS: Hearing grossly intact. Ear canals and tympanic membranes are within normal limits. MOUTH: Oropharynx within normal limits. NECK: Supple, trachea is midline, no adenopathy, no JVD, no carotid bruit, no c- spine tenderness, neck with full ROM. CHEST: Symmetric, no tenderness at palpation LUNGS: Clear to auscultation bilaterally. No wheezing or crackles. CVS: Regular rate and rhythm, S1 and S2 present, no murmurs or gallops appreciated. ABDOMEN: Soft, non-tender. No signs of distention. No rebound, no guarding, and no masses palpated. Bowel sounds are normal. EXTREMITIES: FROM in all major joints, no edema, no cyanosis or clubbing. NEURO: Alert and oriented x 3. No acute neurological deficits. Speech is normal and follows commands. SKIN: Dry and warm GCS: 15 Triage Information Reviewed: Yes Vital Signs On Initial Exam: Initial Vitals Temp Pulse Resp BP Pulse Ox 98.9 F 99 20 124/68 96 05/29/18 12:17 05/29/18 12:17 05/29/18 12:17 05/29/18 12:17 05/29/18 12:17 Vital Signs Reviewed: Yes Diagnostics - Vital Signs Vital Signs Temp Pulse Resp BP Pulse Ox 05/29/18 12:17 98.9 F 99 20 124/68 96 - Laboratory Result Diagrams: 05/29/18 12:44 05/29/18 12:44 Lab Statement: Any lab studies that have been ordered have been reviewed, and results considered in the medical decision making process. - Radiology Chest XR Xray Interpretation: No Acute Changes - IMPRESSION: No active cardiopulmonary disease. Dr. Gill has reviewed this report. Radiology Interpretation Completed By: Radiologist - CT Brain CT CT Interpretation: No Acute Changes - IMPRESSION: 1. No acute intracranial process evident. 2. Chronic involutional change at the parietal lobes and cerebellar vermis as noted. Dr. Gill has reviewed this report. CT Interpretation Completed By: Radiologist - EKG 12:23 Cardiac Rate: NL - at 99 bpm EKG Rhythm: Sinus Rhythm EKG Interpretation: No ST elevations EKG Comparison: No Significant Change - Similar to prior on 02/25/18. Dizzy Course/Dx - Course Assessment/Plan: This pt is a 57 y/o male presenting to [facility] via EMS for dizziness today. EMS reports pt was walking [place] facility from [place] when he became dizzy. Per EMS pt knocked on someone's door and states he was going to fall down. Denies room spinning sensation. He is unable to describe his dizziness. He additionally notes feeling nauseous. EMS was called and they report blood glucose of 157. Denies headache, SOB, chest pain, palpitations. Pt lives at [facility]. Blood test results without any significant abnormality except for glucose of 141, urinalysis is negative for UTI. Head CT impression: No acute intracranial process evident. Chronic involutional change at the parietal lobes and cerebellar vermis as noted. Chest x-ray impression: No active cardiopulmonary disease. In the ED course the patient was hydrated with IV fluids, the patient was given Zofran and Reglan for nausea and vomiting, and he was given meclizine for the dizziness. After these medications were given the symptoms have resolved. At this point the patient is hemodynamically stable, alert and oriented 3. I ambulated the patient myself to see if he has any unsteady gait or ataxia however the patient has a steady walk without any difficulty ambulating. Therefore the patient will be discharged home with follow-up with primary care physician. Patient is hemodynamically stable, alert and oriented x3. - Diagnoses Differential Diagnosis/HQI/PQRI: Benign Paroxysmal Positional Vertigo, Dysrhythmia, Meniere's Disease, Vasovagal Reaction Provider Diagnoses: Vertigo Discharge - Sign-Out/Discharge Documenting (check all that apply): Patient Departure - discharge home - Discharge Plan Condition: Stable Disposition: HOME Prescriptions: Meclizine TAB* [Antivert 12.5 TAB*] 25 mg PO TID PRN #30 tab PRN Reason: Pain Patient Education Materials: Vertigo (ED) Referrals: Brina Evangelista MD [Primary Care Provider] - Additional Instructions: FOLLOW UP WITH YOUR PRIMARY CARE PROVIDER IN 2-3 DAYS. RETURN TO THE ED FOR ANY NEW OR WORSENING SYMPTOMS. - Billing Disposition and Condition Condition: STABLE Disposition: Home - Attestation Statements Document Initiated by Scribe: Yes Documenting Scribe: Sridevi Vasquez Provider For Whom Scribe is Documenting (Include Credential): Rock Gill MD Scribe Attestation: Sridevi Marquez, scribed for Rock Gill MD on 05/30/18 at 0741. Scribe Documentation Reviewed: Yes Provider Attestation: The documentation as recorded by the Sridevi rios accurately reflects the service I personally performed and the decisions made by me, Rock Gill MD
[2018-05-29 12:59] LABS: ABS Basophils 0 10^3/ul (0-0.2); ABS Eosinophils 0 10^3/ul (0-0.6); ABS Lymphocytes 0.6 10^3/ul (1.0-4.8); ABS Monocytes 0.4 10^3/ul (0-0.8); ABS Neutrophils 6.2 10^3/ul (1.5-7.7); ABS Nucleated RBC 0 10^3/ul; Eosinophil % 0.4 % (0-6); Hematocrit 46 % (42-52); Hemoglobin 15.4 g/dl (14.0-18.0); Lymphocyte % 7.8 % (25-47); Mean Corpuscular HGB Conc 34 g/dl (31-36); Mean Corpuscular Hemoglobin 30 pg (27-31); Mean Corpuscular Volume 89 fL (80-94); Mean Platelet Volume 8.3 um3 (7.4-10.4); Nucleated Red Blood Cells % 0.1; Platelet Count 182 10^3/ul (150-450); Red Blood Count 5.18 10^6/ul (4.00-5.40); Red Cell Distribution Width 15 % (10.5-15); White Blood Count 7.3 10^3/ul (3.5-10.8)
[2018-05-29 13:07] LABS: INR 0.87 (0.77-1.02)
[2018-05-29 13:19] LABS: EGFR Non-African American 70.2 (>60)
--- NOTE | 2018-05-29 13:38 | RAD ---
Indication: Dizziness. Comparison: January 11, 2018 Technique: Noncontrast CT vertex of skull through foramen magnum. Report: Moderate prominence of the cerebral sulci at the parietal lobes and moderate atrophy of the cerebellar vermis without change. Unremarkable ventricles and basal cisterns. Negative for samuel matter white matter obscuration, intra or extra-axial hemorrhage, or mass effect. Unremarkable orbital contents. Negative for calvarial or skull base fracture or suspicious focal osseous lesion. Clear visualized paranasal sinuses and mastoid air spaces. Unremarkable scalp. IMPRESSION: #. No acute intracranial process evident. #. Chronic involutional change at the parietal lobes and cerebellar vermis as noted.
--- NOTE | 2018-05-29 14:12 | RAD ---
HISTORY: Dizziness COMPARISONS: February 02, 2018 VIEWS: 2: Frontal and lateral views of the chest. FINDINGS: CARDIOMEDIASTINAL SILHOUETTE: The cardiomediastinal silhouette is normal. TERESA: The teresa are normal. PLEURA: The costophrenic angles are sharp. No pleural abnormalities are noted. LUNG PARENCHYMA: The lungs are clear. ABDOMEN: The upper abdomen is clear. There is no subphrenic gas. BONES AND SOFT TISSUES: No bone or soft tissue abnormalities are noted. OTHER: None. IMPRESSION: NO ACTIVE CARDIOPULMONARY DISEASE.
[2018-05-29 14:22] LABS: Urine Appearance Clear; Urine Blood Negative (Negative); Urine Color Straw; Urine Ketones Negative (Negative); Urine Protein Negative (Negative); Urine Specific Gravity 1.002 (1.010-1.030); Urine Urobilinogen Negative (Negative)
[2018-05-29] MEDS ORDERED: Metoclopramide IV* 5 MG/ML 2 ML VIAL IV ONE (15:39)
[2018-05-29 16:58] VITALS: BP 119/74
== END 2018-05-29 16:57 | disposition home or self-care (01) ==
LOC: ED 12:12
DX: R42 Dizziness and giddiness (principal)
CPT/HCPCS: 36415; 70450; 71046; 80053; 80320; 81003; 82550; 83605; 83735; 83880; 84443; 84484; 85025; 85610; 85730; 86140; 87040; 93005; 96361; 96374; 96375; 99283; A9270-GY; G0480; J2405; J2765

== ENCOUNTER 2018-06-29 15:45 | Emergency (ER) | payer MEDICARE, MEDICAID ==
[2018-06-29 16:40] LABS: ABS Basophils 0 10^3/ul (0-0.2); ABS Eosinophils 0.1 10^3/ul (0-0.6); ABS Lymphocytes 0.6 10^3/ul (1.0-4.8); ABS Monocytes 0.4 10^3/ul (0-0.8); ABS Nucleated RBC 0 10^3/ul; Hematocrit 48 % (42-52); Hemoglobin 15.8 g/dl (14.0-18.0); Lymphocyte % 10.3 % (25-47); Mean Corpuscular HGB Conc 33 g/dl (31-36); Mean Corpuscular Hemoglobin 30 pg (27-31); Mean Corpuscular Volume 90 fL (80-94); Mean Platelet Volume 8.4 fL (7.4-10.4); Nucleated Red Blood Cells % 0; Platelet Count 183 10^3/ul (150-450); Red Blood Count 5.27 10^6/ul (4.00-5.40); Red Cell Distribution Width 15 % (10.5-15); White Blood Count 6.1 10^3/ul (3.5-10.8)
[2018-06-29 16:56] LABS: EGFR Non-African American 72.5 (>60)
--- NOTE | 2018-06-29 17:16 | ED ---
Syncope/Near Syncope - HPI Summary HPI Summary: This patient is a 57 year old M presenting to [facility] with a chief complaint of syncope since 1300. He comes from a mental health facility. At baseline he is normally able to converse but today he syncopized and was unable to, experienced AMS. He endorses amnesia, with no memory of the event; pt is unsure if he had had lunch today, does remember eating breakfast today. Pt states he feels asymptomatic currently. - History Of Current Complaint Chief Complaint: EDAltMentalStatus Time Seen by Provider: 06/29/18 16:13 Hx Obtained From: Patient, Family/[employer]per, EMS Onset/Duration: Sudden Onset, Resolved Timing: Constant Context: Witnessed Associated Head Trauma: No Aggravating Factor(s): Nothing Alleviating Factor(s): Nothing Associated Signs And Symptoms: AMS, Other - amnesia Frequency: Episodes x___ - 1 - Allergies/Home Medications Allergies/Adverse Reactions: Allergies Allergy/AdvReac Type Severity Reaction Status Date / Time bee venom protein (honey bee) Allergy Difficulty Verified 05/29/18 12:26 Breathing PMH/Surg Hx/FS Hx/Imm Hx Endocrine/Hematology History: Denies: Hx Anticoagulant Therapy Cardiovascular History: Denies: Hx Cardiac Arrest, Other Cardiovascular Problems/Disorders Respiratory History: Reports: Hx Asthma - NO INHALERS NEEDED Denies: Other Respiratory Problems/Disorders GI History: Reports: Hx Gall Bladder Disease Denies: Other GI Disorders History: Denies: Hx Dialysis Musculoskeletal History: Denies: Other Musculoskeletal History Sensory History: Reports: Hx Cataracts - NU, Hx Contacts or Glasses - READING Denies: Hx Deafness, Hx Hearing Aid Opthamlomology History: Reports: Hx Cataracts - NU, Hx Contacts or Glasses - READING Psychiatric History: Reports: Hx Schizophrenia, Hx Bipolar Disorder - Surgical History Surgery Procedure, Year, and Place: GALLBLADDER, 2009, [facility] Hx Anesthesia Reactions: No Infectious Disease History: No Infectious Disease History: Denies: Traveled Outside the [place] in Last 30 Days - Family History Known Family History: Positive: Other - Negative malignant hyperthermia, negative anesthesia reaction - Social History Occupation: Disabled Lives: Assisted Living Alcohol Use: None Hx Substance Use: No Substance Use Type: Reports: None Hx Tobacco Use: No Smoking Status (MU): Never Smoked Tobacco Review of Systems Negative: Fever Positive: no symptoms reported Neurological: Other - AMS Positive: Syncope All Other Systems Reviewed And Are Negative: Yes Physical Exam - Summary Physical Exam Summary: Appearance: The patient is well-nourished in no acute distress and in no acute pain. Skin: The skin is warm and dry and skin color reflects adequate perfusion. HEENT: The head is normocephalic and atraumatic. The pupils are equal and reactive. The conjunctivae are clear and without drainage. Nares are patent and without drainage. Mouth reveals moist mucous membranes and the throat is without erythema and exudate. The external ears are intact. The ear canals are patent and without drainage. The tympanic membranes are intact. Neck: The neck is supple with full range of motion and non-tender. There are no carotid bruits. There is no neck vein distension. Respiratory: Chest is non-tender. Lungs are clear to auscultation and breath sounds are symmetrical and equal. Cardiovascular: Heart is regular rate and rhythm. There is no murmur or rub auscultated. There is no peripheral edema and pulses are symmetrical and equal. Abdomen: The abdomen is soft and non-tender. There are normal bowel sounds heard in all four quadrants and there is no organomegaly palpated. Musculoskeletal: There is no back tenderness noted. Extremities are non-tender with full range of motion. There is good capillary refill. There is no peripheral edema or calf tenderness elicited. Neurological: Patient is alert and oriented to person, place and time. The patient has symmetrical motor strength in all four extremities. Cranial nerves are grossly intact. Deep tendon reflexes are symmetrical and equal in all four extremities. Psychiatric: The patient has an appropriate affect and does not exhibit any anxiety or depression. Triage Information Reviewed: Yes Vital Signs On Initial Exam: Initial Vitals Temp Pulse Resp BP Pulse Ox 98.9 F 98 18 144/74 99 06/29/18 15:53 06/29/18 15:53 06/29/18 15:53 06/29/18 15:53 06/29/18 15:53 Vital Signs Reviewed: Yes Diagnostics - Vital Signs Vital Signs Temp Pulse Resp BP Pulse Ox 06/29/18 16:00 97 16 100 06/29/18 15:59 97 16 100 06/29/18 15:57 99 16 145/93 100 06/29/18 15:53 98.9 F 98 18 144/74 99 - Laboratory Lab Results: Lab Results 06/29/18 06/29/18 06/29/18 Range/Units 16:27 16:27 16:27 WBC 6.1 (3.5-10.8) 10^3/ul RBC 5.27 (4.00-5.40) 10^6/ul Hgb 15.8 (14.0-18.0) g/dl Hct 48 (42-52) % MCV 90 (80-94) fL MCH 30 (27-31) pg MCHC 33 (31-36) g/dl RDW 15 (10.5-15) % Plt Count 183 (150-450) 10^3/ul MPV 8.4 (7.4-10.4) fL Neut % (Auto) 81.7 (38-83) % Lymph % (Auto) 10.3 L (25-47) % Winn % (Auto) 6.3 (0-7) % Eos % (Auto) 1.0 (0-6) % Baso % (Auto) 0.7 (0-2) % Absolute Neuts (auto) 5.0 (1.5-7.7) 10^3/ul Absolute Lymphs (auto) 0.6 L (1.0-4.8) 10^3/ul Absolute Monos (auto) 0.4 (0-0.8) 10^3/ul Absolute Eos (auto) 0.1 (0-0.6) 10^3/ul Absolute Basos (auto) 0 (0-0.2) 10^3/ul Absolute Nucleated RBC 0 10^3/ul Nucleated RBC % 0 Sodium 143 (135-145) mmol/L Potassium Pending Chloride 110 (101-111) mmol/L Carbon Dioxide 26 (22-32) mmol/L Anion Gap Pending BUN 9 (6-24) mg/dL Creatinine 1.05 (0.67-1.17) mg/dL Est GFR ( Amer) 87.8 (>60) Est GFR (Non-Af Amer) 72.5 (>60) BUN/Creatinine Ratio 8.6 (8-20) Glucose 123 H (70-100) mg/dL Lactic Acid 2.8 H* (0.5-2.0) mmol/L Calcium 8.9 (8.6-10.3) mg/dL Total Bilirubin 0.30 (0.2-1.0) mg/dL AST Pending ALT 13 (7-52) U/L Alkaline Phosphatase 162 H (34-104) U/L Total Protein 6.1 L (6.4-8.9) g/dL Albumin 3.7 (3.2-5.2) g/dL Globulin 2.4 (2-4) g/dL Albumin/Globulin Ratio 1.5 (1-3) Salicylates < 2.50 (<30) mg/dL Acetaminophen < 15 mcg/mL Serum Alcohol < 10 (<10) mg/dL Result Diagrams: 06/29/18 16:27 06/29/18 16:27 Lab Statement: Any lab studies that have been ordered have been reviewed, and results considered in the medical decision making process. - EKG 1703 Cardiac Rate: NL - 91 EKG Rhythm: Sinus Rhythm ST Segment: Normal Ectopy: None Summary of EKG Findings: No STEMI. Course/Dx Course Of Treatment: Mr. Castellanos was witnessed to have a possible tonic clonic seizure today. He has no memory of the event and feels fine here in the ED. He denies any history of them. His labs were okay here in the emergency department department, his vitals remained stable and he remained nontoxic in appearance. Further workup as an outpatient. - Diagnoses Provider Diagnoses: New onset seizure Discharge - Sign-Out/Discharge Documenting (check all that apply): Patient Departure - discharge - Discharge Plan Condition: Stable Disposition: HOME Patient Education Materials: New-Onset Seizure in Adults (ED) Referrals: Brina Evangelista MD [Primary Care Provider] - Additional Instructions: Follow up with your primary care physician (Dr. Evangelista) in 2-3 days. Return to the emergency department for any new or worsening symptoms. - Billing Disposition and Condition Condition: STABLE Disposition: Home - Attestation Statements Document Initiated by Scribe: Yes Documenting Scribe: Benito Mantilla Provider For Whom Charli is Documenting (Include Credential): Dr. Shaq Ward MD Scribe Attestation: Benito Marquez scribed for Dr. Shaq Ward MD on 06/30/18 at 1326. Scribe Documentation Reviewed: Yes Provider Attestation: The documentation as recorded by the scribe, Benito Bezirganian accurately reflects the service I personally performed and the decisions made by me, Dr. Shaq Ward MD
[2018-06-29 18:28] LABS: Urine Appearance Cloudy; Urine Blood Negative (Negative); Urine Color Yellow; Urine Ketones Negative (Negative); Urine Protein Negative (Negative); Urine Urobilinogen Negative (Negative)
[2018-06-29 20:33] VITALS: BP 145/79
== END 2018-06-29 20:44 | disposition home or self-care (01) ==
LOC: ED 15:45
DX: R56.9 Unspecified convulsions (principal); R55 Syncope and collapse
CPT/HCPCS: 36415; 80053; 80307; 80320; 80329; 81003; 83605; 85025; 93005; 99282; G0480

== ENCOUNTER 2018-10-10 07:24 | Inpatient (IN) | payer MEDICARE, MEDICAID ==
--- NOTE | 2018-10-10 07:28 | ED ---
Syncope/Near Syncope - HPI Summary HPI Summary: Dr. Mcdonough met patient and EMS upon arrival and proceeded to room with them. A 58 y/o M brought in by ambulance presents to ED s/p syncopal episode which has spontaneously resolved onset ABRASIVE SAWYER. Per EMS: Pt is a [facility] resident. He was walking back from the med room, when he had a sudden syncopal episode, witnessed by staff. The duration is unknown, but staff did say he hit his head. They did not see any sz activity including incontinence nor tongue biting. En route, patient's BP was 107/79, pulse was 90 bpm, O2 sat was 97. At bedside, patient denies: neck pain, dizziness, BLACK, SOB, CP. He felt the syncopal episode coming on. He has not eaten today. Denies PMHx: sz. He takes Zofran, Clozaril, Meclizine, Benztropine. At bedside, he knows his location, the month and , but cannot state his age. Non-smoker. No ETOH. Vitals at bedside: HR: 94 bpm and BP: 141/91. Home Medications Medication Instructions Recorded Confirmed Type CloZAPine TAB* 100 mg PO QAM 01/11/18 10/10/18 History Benztropine TAB* [Cogentin TAB*] 2 mg PO DAILY 02/02/18 10/10/18 History Meclizine TAB* [Antivert 12.5 TAB*] 25 mg PO TID PRN #30 tab 05/29/18 10/10/18 Rx Ondansetron 4 mg PO Q8HR PRN 10/10/18 10/10/18 History - History Of Current Complaint Hx Obtained From: Patient, EMS Onset/Duration: Sudden Onset, Resolved Timing: Frequency Of Episodes - 1 Context: Witnessed, Loss Of Consciousness Activity At Onset: At Rest - walking Associated Head Trauma: Yes Aggravating Factor(s): Nothing Alleviating Factor(s): Spontaneous Resolution Associated Signs And Symptoms: Negative - Pt denies associated sx. Related History: Similar Episode/Dx as Frequency: Episodes x___ - 1, Episodes Lasting ____ (in Mins/Days/Weeks/Years) - mins - Allergies/Home Medications Allergies/Adverse Reactions: Allergies Allergy/AdvReac Type Severity Reaction Status Date / Time bee venom protein (honey bee) Allergy Difficulty Verified 10/10/18 07:38 Breathing Home Medications: Home Medications Ondansetron 4 mg PO Q8HR PRN 10/10/18 [History Confirmed 10/10/18] PMH/Surg Hx/FS Hx/Imm Hx Previously Healthy: No Endocrine/Hematology History: Denies: Hx Anticoagulant Therapy, Hx Diabetes Cardiovascular History: Denies: Hx Cardiac Arrest, Hx Hypertension, Hx Pacemaker/ICD, Other Cardiovascular Problems/Disorders Respiratory History: Reports: Hx Asthma - NO INHALERS NEEDED Denies: Other Respiratory Problems/Disorders GI History: Reports: Hx Gall Bladder Disease Denies: Other GI Disorders History: Denies: Hx Dialysis Musculoskeletal History: Denies: Other Musculoskeletal History Sensory History: Reports: Hx Cataracts - NU, Hx Contacts or Glasses - READING Denies: Hx Deafness, Hx Hearing Aid Opthamlomology History: Reports: Hx Cataracts - NU, Hx Contacts or Glasses - READING Neurological History: Reports: Other Neuro Impairments/Disorders - has been evaluated by for seizures in the past, no definite seizure on EEG Psychiatric History: Reports: Hx Schizophrenia, Hx Bipolar Disorder Denies: Hx Panic Disorder - Surgical History Surgery Procedure, Year, and Place: [facility], [facility], [facility] Hx Anesthesia Reactions: No Infectious Disease History: No - Family History Known Family History: Positive: Other - Negative malignant hyperthermia, negative anesthesia reaction - Social History Occupation: Disabled Lives: Assisted Living - [facility] Alcohol Use: None Hx Substance Use: No Substance Use Type: Reports: None Hx Tobacco Use: No Smoking Status (MU): Never Smoked Tobacco Review of Systems Constitutional: Negative Eyes: Negative Negative: Chest Pain Negative: Shortness Of Breath Gastrointestinal: Negative Positive: no symptoms reported - wears adult brief, was soiled with urine and stool upon arrival Musculoskeletal: Other - neg: neck pain Skin: Negative Neurological: Other - neg: dizziness Positive: Syncope. Negative: Headache Psychological: Normal All Other Systems Reviewed And Are Negative: Yes Physical Exam - Summary Physical Exam Summary: Appearance: Well-appearing, moderate pain distress, well-nourished. Soiled adult brief. Skin: Warm, color reflects adequate perfusion, dry. Superficial abrasions on anterior tibia Head: Normal Head/Face inspection, atraumatic, no cephalohematoma Eyes: Conjunctiva clear, PERRL, EOMI ENT: Normal inspection Dental: Decayed, broken bilateral upper teeth Neck: Supple, no nodes, no JVD Respiratory: Lungs clear, normal breath sounds, no respiratory distress Cardio: RRR, No murmur, pulses normal, brisk capillary refill Abdomen: Soft, nontender Bowel sounds: Present Musculoskeletal: Strength Intact/ROM intact, no calf tenderness, no edema. Psychological: Normal Neuro: A&O x3, CN II-XII intact, motor function 5/5, sensation intact, cerebellar normal. Gets month correct but did not know his age. Smacking motion with lips c/w tardive dyskinesia Triage Information Reviewed: Yes Vital Signs Reviewed: Yes - Daphne Coma Scale Best Eye Response: 4 - Spontaneous Best Motor Response: 6 - Obeys Commands Best Verbal Response: 5 - Oriented Coma Scale Total: 15 Diagnostics - Laboratory Result Diagrams: 10/13/18 05:35 10/14/18 07:49 Lab Statement: Any lab studies that have been ordered have been reviewed, and results considered in the medical decision making process. - Radiology CXR Radiology Interpretation Completed By: Radiologist Summary of Radiographic Findings: IMPRESSION: No active cardiopulmonary dz. ED provider has reviewed this report. - CT BRAIN CT CT Interpretation Completed By: Radiologist Summary of CT Findings: IMPRESSION: No acute intracranial pathology. ED provider has reviewed this report. - EKG 0745 Cardiac Rate: NL - 93 bpm EKG Rhythm: Sinus Rhythm ST Segment: Non-Specific Ectopy: None EKG Comparison: No Significant Change - compared to EKG on 06/29/18. Summary of EKG Findings: An EKG at 0745 reveals NSR at 93 bpm, nml DO CT, nml QTc, and nml axis. No acute changes. Re-Evaluation - Re-Evaluation First Eval Re-Evaluation Time: 09:15 Change: Improved Comment: Pt remains awake and alert. No seizure activity. No chest pain. Second Eval Re-Evaluation Time: 12:15 Change: Unchanged Comment: Pt remains without seizures in the ED. EEG shows seizure disorder. Will medicate with Keppra and Depakote per Dr. Chavira. Course/Dx Course Of Treatment: A 58 y/o M presents to ED s/p syncopal episode which has spontaneously resolved onset ABRASIVE SAWYER. Per EMS: Pt is a [facility] resident. He was walking, when he had a sudden syncopal episode, witnessed by staff. The duration is unknown, but he did hit his head. Staff deny seeing any sz-like activity. At bedside, patient denies: neck pain, dizziness, BLACK, SOB, CP. He felt the syncopal episode coming on. He has not eaten today. He takes Zofran, Clozaril, Meclizine, Benztropine. At bedside, he knows his location, the month and , but cannot state his age. Allergies noted, high blood pressure noted. Pt medications reviewed this visit. Labwork is WNL except: RBC: 5.52, glucose: 114, Alk Phos: 191, total protein: 6.3. UA results show 1+ protein, trace ketones, positive urobilinogen. Tox screen is negative. CXR and Brain CT are both negative. An EKG at 0745 reveals NSR at 93 bpm, nml OD CT, nml QTc, and nml axis. No acute changes. No changes from EKG on 06/29/18. Consulted with Dr. Chavira, neuro, who recommends repeat EEG. He doubts it is a sz disorder, as this has been evaluated with MRI and EEG as an outpatient. He will see pt if requested. Does not recommend a repeated MRI as pt had one on September 13, 2018. Does recommend repeat EEG. Consulted with Dr. Em, hospitalist: pt does not meet Anza Syncope rules. Based on chart and verbal presentation, does not currently recommend pt for admission. Consulted with Dr. Chavira, neuro, who states the EEG is showing sz activity. Consulted with Dr. Em, hospitalist, who will admit patient and neuro will consult. - Diagnoses Differential Diagnosis/HQI/PQRI: Positive: Cerebral Vascular Accident, Hypoglycemia, Metabolic Reaction, Medication Reaction, Seizure, Transient Ischemic Attack Provider Diagnoses: Seizure disorder, Syncope - Physician Notifications Discussed Care of Patient With: Williams Chavira - neuro Time Discussed With Above Provider: 08:45 Instructed by Provider To: Other - Recommends repeat EEG. He doubts it is a sz disorder. He will see pt if requested. Does not recommend a repeated MRI as pt had one in August. Repeat EEG does show seizure disorder. Recommends Keppra 1000mg and Depakote 1000mg IV. Discharge - Sign-Out/Discharge Documenting (check all that apply): Patient Departure - ADMIT Patient Received Moderate/Deep Sedation with Procedure: No - Discharge Plan Condition: Stable Disposition: ADMITTED TO [facility] - Billing Disposition and Condition Condition: STABLE Disposition: Admitted to [facility] - Attestation Statements Document Initiated by Scribe: Yes Documenting Scribe: Rosemary Orantes Provider For Whom Scribe is Documenting (Include Credential): Dr. Flavia Mcdonough MD Scribe Attestation: IRosemary, scribed for Dr. Flavia Mcdonough MD on 10/14/18 at 2240. Scribe Documentation Reviewed: Yes Provider Attestation: The documentation as recorded by the Rosemary rios accurately reflects the service I personally performed and the decisions made by me, Dr. Flavia Mcdonough MD Status of Scribe Document: Viewed Consult Consult: 0915: Consult with Dr. Em, hospitalist Pt does not meet Anza Syncope rules. Based on chart and verbal presentation, does not currently recommend pt for admission. 11:55: Consult with Dr. Chavira, neuro EEG shows sz activity. 12:03: Consult with Dr. Em, hospitalist Will admit and Dr. Chavira, neuro will consult. Recommends IV Depakote, IV Keppra.
[2018-10-10] MEDS ORDERED: NS 0.9% 1000 ML** 1,000 ML IV ONE (07:34)
--- OUTSIDE RECORDS SUMMARY | 2018-10-10 07:45 | XMS REPORT | Continuity of Care Document ---
:1960 External Reference #:[id number] Author Name Raven Apple Care Team Providers Name Role Phone Other Physician Practices Primary Care Physician Unavailable Payers Type Date Identification Numbers Payment Provider Subscriber Effective: Policy Number: [id number] Medicare Fartun Castellanos 2010 PayID: [id number] [address] [place] [address] Policy Number: [id number] Medicaid Fartun Castellanos Group Name: 1 1 [address] PayID: [id number] [place] [address] Advance Directives Type Date Description Status Comment MOLST 07/13/2014 MOLST Current and Verified Problems Date Description Provider Status Onset: Schizoaffective disorder, depressive Active type Onset: 03/21/2018 Urge incontinence of urine Brina Evangelista M.D. Active Onset: 03/21/2018 Amnesia Brina Evangelista M.D. Active Onset: Problem Active Onset: 08/30/2011 Tobacco user Brina Evangelista M.D. Inactive Inactive: 01/31/2018 Family History Date Family Member(s) Problem(s) Comments Father due to IA () Mother Stroke Social History Type Date Description Comments Sex Unknown Marital Status Single Occupation Retired Cigarette Use Pack Years - 15 Tobacco Use Start: Unknown End: Former Cigarette Smoker quit 07/31 Unknown Smoking Status Reviewed: 09/23/18 Former Cigarette Smoker quit 07/31 ETOH Use Denies alcohol use Recreational Drug Use Denies Drug Use Tobacco Use Start: Unknown End: Patient is a former smoker Unknown Exercise Type/Frequency walks 1 mile 2-3/week Currently Active Patient is currently not sexually active Allergies, Adverse Reactions, Alerts Description No Known Drug Allergies Medications Medication Date Status Form Strength Qnty SIG Indications Ordering Provider Antivert 05/29/ Active Tablets 12.5mg 30tabs Three Times Unknown 2018 Daily Repack Cogentin 02/02/ Active Tablets 1mg Every Day Unknown 2018 Repack Clozapine / Active Tablets 100mg 1 tab in Am Unknown 0000 and 3 tab PM Zofran / Active Tablets 4mg take 1 by Unknown 0000 mouth twice a day as needed for nausea Meclizine HCL 07/13/ Hx Tablets 25mg 60tabs take one 386.11 Susan 2013 - tablet by Emanuel, N.P. 01/07/ mouth twice 2014 a day as needed for dizziness Nicotine 01/17/ Hx Gum 2mg 60unit as directed Brina 2012 - s Evangelista, 08/28/ M.D. 2012 Nicotine 01/16/ Hx Patches 7mg/24HR 20unit apply for Brina Transdermal 2012 - 24HR s 24 hrs [employer], System 08/28/ every other M.D. 2012 day as needed Nicotine 10/04/ Hx Lozenges 2mg 60unit as needed 305.1 Brina Polacrilex 2011 - for Evangelista, 01/17/ cravings M.D. 2011 Nicotine 08/30/ Hx Patches 14mg/24HR 30unit apply every 305.1 Brina Transdermal 2012 - 24HR s day [employer], System 08/28/ M.D. 2013 Risperidone / Hx Tablets 2mg one po at Unknown 0000 - hs 2013 Trazodone HCL / Hx Tablets 50mg 30tabs 1 tablet at Unknown 0000 - bedtime as 01/31/ needed 2018 Immunizations CPT Code Status Date Vaccine Lot # [id number] Given 05/14/2014 Influenza Virus Vaccine, Quadrivalent, Split, [id number] Preservative Free Q2037 Given 08/28/2012 Fluvirin Im 3Yrs And Older [id number] Q2035 Given 08/30/2011 Afluria Vaccine [id number] Given 08/30/2011 Tdap - Tetanus/Diptheria/Acellular Pertussis [id number] Vital Signs Date Vital Result Comment 09/23/2018 12:10pm Height 63 inches 5'3" Weight 152.25 lb Heart Rate 72 /min BP Systolic 122 mmHg BP Diastolic 82 mmHg BMI (Body Mass Index) 27.0 kg/m2 07/24/2018 9:16am Height 63 inches 5'3" Weight 152.00 lb Heart Rate 88 /min BP Systolic 110 mmHg BP Diastolic 72 mmHg BMI (Body Mass Index) 26.9 kg/m2 03/21/2018 10:19am Height 63 inches 5'3" Weight 152.50 lb Heart Rate 93 /min BP Systolic Sitting 110 mmHg BP Diastolic Sitting 80 mmHg O2 % BldC Oximetry 97 % BMI (Body Mass Index) 27.0 kg/m2 01/31/2018 10:03am Height 62.5 inches 5'2.50" Weight 155.00 lb Heart Rate 98 /min BP Systolic Sitting 122 mmHg BP Diastolic Sitting 50 mmHg O2 % BldC Oximetry 98 % BMI (Body Mass Index) 27.9 kg/m2 07/13/2014 8:36am Height 62.5 inches 5'2.50" Weight 129.00 lb Heart Rate 89 /min BP Systolic Sitting 100 mmHg BP Diastolic Sitting 68 mmHg O2 % BldC Oximetry 97 % BMI (Body Mass Index) 23.2 kg/m2 05/14/2014 11:25am Height 63.75 inches 5'3.75" Weight 133.25 lb Heart Rate 97 /min BP Systolic Sitting 102 mmHg BP Diastolic Sitting 70 mmHg O2 % BldC Oximetry 97 % BMI (Body Mass Index) 23.0 kg/m2 08/28/2012 9:06am Height 63.75 inches 5'3.75" Weight 151.00 lb Heart Rate 86 /min BP Systolic Sitting 116 mmHg BP Diastolic Sitting 74 mmHg BMI (Body Mass Index) 26.1 kg/m2 04/10/2012 10:20am Height 63.75 inches 5'3.75" Weight 152.00 lb Heart Rate 64 /min BP Systolic Sitting 144 mmHg BP Diastolic Sitting 76 mmHg BMI (Body Mass Index) 26.3 kg/m2 10/04/2011 10:35am Height 63.75 inches 5'3.75" Weight 155.00 lb Heart Rate 76 /min BP Systolic Sitting 126 mmHg BP Diastolic Sitting 74 mmHg BMI (Body Mass Index) 26.8 kg/m2 08/30/2011 10:39am Height 63.75 inches 5'3.75" Weight 155.00 lb Heart Rate 72 /min BP Systolic Sitting 138 mmHg L BP Diastolic Sitting 82 mmHg L BMI (Body Mass Index) 26.8 kg/m2 Results Test Date Facility Test Result H/L Range Note Comp Metabolic Panel 08/29/2018 [facility] Sodium 144 mmol/L N 135-145 [address] [place] [address] [phone] Potassium 4.1 mmol/L N 3.5-5.0 Chloride 107 mmol/L N 101-111 Co2 Carbon Dioxide 29 mmol/L N 22-32 Anion Gap 8 mmol/L N 2-11 Glucose 118 mg/dL High 70-100 Blood Urea Nitrogen 9 mg/dL N 6-24 Creatinine 1.12 mg/dL N 0.67-1.17 BUN/Creatinine Ratio 8.0 N 8-20 Calcium 9.4 mg/dL N 8.6-10.3 Total Protein 6.2 g/dL Low 6.4-8.9 Albumin 4.3 g/dL N 3.2-5.2 Globulin 1.9 g/dL Low 2-4 Albumin/Globulin Ratio 2.3 N 1-3 Total Bilirubin 0.40 mg/dL N 0.2-1.0 Alkaline Phosphatase 207 U/L High 34-104 Alt 13 U/L N 7-52 Ast 18 U/L N 13-39 Egfr Non- 67.1 >60 Egfr 81.2 >60 1 Laboratory test 08/29/2018 [facility] TSH (Thyroid 1.53 mcIU/mL N 0.34-5.60 finding [address]) [place] [address] [phone] Folic Acid (Folate) 6.66 ng/mL >3.99 Vitamin B12 240 pg/mL N 180-914 2 Clozapine (Clozaril) 08/29/2018 [facility] Clozapine 1630 ng/mL >350 [address] [place] [address] [phone] Norclozapine 892 ng/mL Clozapine Norclozapine Level 2522 ng/mL >450 3 Clozapine (Clozaril) 07/31/2018 [facility] Clozapine 1220 ng/mL >350 [address] [place] [address] [phone] Norclozapine 717 ng/mL Clozapine Norclozapine Level 1937 ng/mL >450 4 Laboratory test 07/31/2018 [facility] TSH (Thyroid 2.09 mcIU/mL N 0.34-5.[address] Stim Horm) [place] [address] [phone] Vitamin B12 And 07/31/2018 [facility] Vitamin B12 227 pg/mL N 180-914 5 Folate Serum [facility] [address] [phone] Folic Acid (Folate) 5.31 ng/mL >3.99 Comp Metabolic Panel 07/31/2018 [facility] Sodium 143 mmol/L N 135-145 [address] [place] [address] [phone] Potassium 4.3 mmol/L N 3.5-5.0 Chloride 107 mmol/L N 101-111 Co2 Carbon Dioxide 30 mmol/L N 22-32 Anion Gap 6 mmol/L N 2-11 Glucose 109 mg/dL High 70-100 Blood Urea Nitrogen 9 mg/dL N 6-24 Creatinine 1.13 mg/dL N 0.67-1.17 BUN/Creatinine Ratio 8.0 N 8-20 Calcium 9.2 mg/dL N 8.6-10.3 Total Protein 6.3 g/dL Low 6.4-8.9 Albumin 4.1 g/dL N 3.2-5.2 Globulin 2.2 g/dL N 2-4 Albumin/Globulin Ratio 1.9 N 1-3 Total Bilirubin 0.40 mg/dL N 0.2-1.0 Alkaline Phosphatase 185 U/L High 34-104 Alt 15 U/L N 7-52 Ast 19 U/L N 13-39 Egfr Non- 66.4 >60 Egfr 80.4 >60 6 Urine Drug 06/29/2018 [facility] Amphetamine Ur None Detected None Detect SCR ED [address] [place] [address] [phone] Barbiturates Urine Screen None Detected None Detect Benzodiazepine Urine Screen None Detected None Detect Urine Cannabinoids Screen None Detected None Detect Urine Cocaine Screen None Detected None Detect Urine Opiates Screen None Detected None Detect Urine Phencyclidine Screen None Detected None Detect 7 Urinalysis Profile 06/29/2018 [facility] Urine Color Yellow [address] [place] [address] [phone] Urine Appearance Cloudy Urine Specific [place] 1.020 N 1.010-1.030 Urine pH 7.0 N 5-9 Urine Urobilinogen Negative Negative Urine Ketones Negative Negative Urine Protein Negative Negative Urine Leukocytes Negative Negative Urine Blood Negative Negative Urine Nitrite Negative Negative Urine Bilirubin Negative Negative Urine Glucose Negative Negative Laboratory test 06/29/2018 [facility] Acetaminophen < 15 g/mL 8 finding [address] [place] [address] [phone] Alcohol < 10 mg/dL N <10 Salicylate < 2.50 mg/dL <30 Comp Metabolic Panel 06/29/2018 [facility] Sodium 143 mmol/L N 135-145 [address] [place] [address] [phone] Chloride 110 mmol/L N 101-111 Co2 Carbon Dioxide 26 mmol/L N 22-32 Glucose 123 mg/dL High 70-100 Blood Urea Nitrogen 9 mg/dL N 6-24 Creatinine 1.05 mg/dL N 0.67-1.17 BUN/Creatinine Ratio 8.6 N 8-20 Calcium 8.9 mg/dL N 8.6-10.3 Total Protein 6.1 g/dL Low 6.4-8.9 Albumin 3.7 g/dL N 3.2-5.2 Globulin 2.4 g/dL N 2-4 Albumin/Globulin Ratio 1.5 N 1-3 Total Bilirubin 0.30 mg/dL N 0.2-1.0 Alkaline Phosphatase 162 U/L High 34-104 Alt 13 U/L N 7-52 Egfr Non- 72.5 >60 Egfr 87.8 >60 9 Potassium 4.4 mmol/L N 3.5-5.0 Anion Gap 7 mmol/L N 2-11 Ast 17 U/L N 13-39 Laboratory test 06/29/2018 [facility] Lactic Acid 2.8 mmol/L High 0.5-2.[address] [place] [address] [phone] CBC Auto Diff 06/29/2018 [facility] White Blood 6.1 10^3/uL N 3.5-10.[address] [place] [address] [phone] Red Blood Count 5.27 10^6/uL N 4.00-5.40 Hemoglobin 15.8 g/dL N 14.0-18.0 Hematocrit 48 % N 42-52 Mean Corpuscular Volume 90 fL N 80-94 Mean Corpuscular Hemoglobin 30 pg N 27-31 Mean Corpuscular HGB Conc 33 g/dL N 31-36 Red Cell Distribution Width 15 % N 10.5-15 Platelet Count 183 10^3/uL N 150-450 Mean Platelet Volume 8.4 fL N 7.4-10.4 Abs Neutrophils 5.0 10^3/uL N 1.5-7.7 Abs Lymphocytes 0.6 10^3/uL Low 1.0-4.8 Abs Monocytes 0.4 10^3/uL N 0-0.8 Abs Eosinophils 0.1 10^3/uL N 0-0.6 Abs Basophils 0 10^3/uL N 0-0.2 Abs Nucleated RBC 0 10^3/uL Granulocyte % 81.7 % N 38-83 Lymphocyte % 10.3 % Low 25-47 Monocyte % 6.3 % N 0-7 Eosinophil % 1.0 % N 0-6 Basophil % 0.7 % N 0-2 Nucleated Red Blood Cells % 0 Laboratory test 05/29/2018 [facility] Blood Culture SEE RESULT [address] [place] [address] [phone] Urinalysis Profile 05/29/2018 [facility] Urine Color Straw [address] [place] [address] [phone] Urine Appearance Clear Urine Specific [place] 1.002 Low 1.010-1.030 Urine pH 7.0 N 5-9 Urine Urobilinogen Negative Negative Urine Ketones Negative Negative Urine Protein Negative Negative Urine Leukocytes Negative Negative Urine Blood Negative Negative Urine Nitrite Negative Negative Urine Bilirubin Negative Negative Urine Glucose Negative Negative Laboratory test 05/29/2018 [facility] Magnesium 1.9 mg/dL N 1.9-2.7 finding [address] [place] [address] [phone] Creatine Kinase(CK) 72 U/L N 10-223 C Reactive Protein 3.10 mg/L N <8.01 Troponin-I (TnI) 0.00 ng/mL <0.04 Alcohol < 10 mg/dL N <10 TSH (Thyroid Stim Horm) 1.76 mcIU/mL N 0.34-5.60 Comp Metabolic Panel 05/29/2018 [facility] Sodium 135 mmol/L N 135-145 [facility] [address] [phone] Potassium 4.1 mmol/L N 3.5-5.0 Chloride 105 mmol/L N 101-111 Co2 Carbon Dioxide 25 mmol/L N 22-32 Anion Gap 5 mmol/L N 2-11 Glucose 141 mg/dL High 70-100 Blood Urea Nitrogen 8 mg/dL N 6-24 Creatinine 1.08 mg/dL N 0.67-1.17 BUN/Creatinine Ratio 7.4 Low 8-20 Calcium 8.8 mg/dL N 8.6-10.3 Total Protein 5.9 g/dL Low 6.4-8.9 Albumin 3.8 g/dL N 3.2-5.2 Globulin 2.1 g/dL N 2-4 Albumin/Globulin Ratio 1.8 N 1-3 Total Bilirubin 0.40 mg/dL N 0.2-1.0 Alkaline Phosphatase 144 U/L High 34-104 Alt 9 U/L N 7-52 Ast 16 U/L N 13-39 Egfr Non- 70.2 >60 Egfr 85.0 >60 12 Laboratory test 05/29/2018 [facility] Partial 33.6 seconds N 26.0-36.[address] [place] [address] PTT [phone] B-Type Natriuretic Peptide BNP 11 pg/mL 13 Inr/Protime 05/29/2018 [facility] Inr 0.87 N 0.77-1.[address] [place] [address] [phone] CBC Auto Diff 05/29/2018 [facility] White Blood 7.3 10^3/uL N 3.5-10.8 [place] [address] [phone] Red Blood Count 5.18 10^6/uL N 4.00-5.40 Hemoglobin 15.4 g/dL N 14.0-18.0 Hematocrit 46 % N 42-52 Mean Corpuscular Volume 89 fL N 80-94 Mean Corpuscular Hemoglobin 30 pg N 27-31 Mean Corpuscular HGB Conc 34 g/dL N 31-36 Red Cell Distribution Width 15 % N 10.5-15 Platelet Count 182 10^3/uL N 150-450 Mean Platelet Volume 8.3 um3 N 7.4-10.4 Abs Neutrophils 6.2 10^3/uL N 1.5-7.7 Abs Lymphocytes 0.6 10^3/uL Low 1.0-4.8 Abs Monocytes 0.4 10^3/uL N 0-0.8 Abs Eosinophils 0 10^3/uL N 0-0.6 Abs Basophils 0 10^3/uL N 0-0.2 Abs Nucleated RBC 0 10^3/uL Granulocyte % 85.1 % High 38-83 Lymphocyte % 7.8 % Low 25-47 Monocyte % 6.1 % N 0-7 Eosinophil % 0.4 % N 0-6 Basophil % 0.6 % N 0-2 Nucleated Red Blood Cells % 0.1 Laboratory test 05/29/2018 [facility] Lactic Acid 1.2 mmol/L N 0.5-2.0 [address] [place] [address] [phone] CBC Auto Diff 05/03/2018 [facility] White Blood 6.2 10^3/uL N 3.5-10.[address] [place] [address] [phone] Red Blood Count 5.30 10^6/uL N 4.00-5.40 Hemoglobin 15.9 g/dL N 14.0-18.0 Hematocrit 47 % N 42-52 Mean Corpuscular Volume 89 fL N 80-94 Mean Corpuscular Hemoglobin 30 pg N 27-31 Mean Corpuscular HGB Conc 34 g/dL N 31-36 Red Cell Distribution Width 15 % N 10.5-15 Platelet Count 209 10^3/uL N 150-450 Mean Platelet Volume 8.3 um3 N 7.4-10.4 Abs Neutrophils 4.7 10^3/uL N 1.5-7.7 Abs Lymphocytes 0.8 10^3/uL Low 1.0-4.8 Abs Monocytes 0.6 10^3/uL N 0-0.8 Abs Eosinophils 0 10^3/uL N 0-0.6 Abs Basophils 0.1 10^3/uL N 0-0.2 Abs Nucleated RBC 0 10^3/uL Granulocyte % 75.2 % N 38-83 Lymphocyte % 13.7 % Low 25-47 Monocyte % 9.4 % High 0-7 Eosinophil % 0.8 % N 0-6 Basophil % 0.9 % N 0-2 Nucleated Red Blood Cells % 0 Laboratory test 03/21/2018 [employer] [employer] Hemoglobin A1c 5.2 5-7 finding HIV 1/2 AB 03/01/2018 [facility] HIV 1 2 Nonreactive Nonreactive [address] [place] [address] [phone] Clozapine 03/01/2018 [facility] Clozapine 865 ng/mL >350 (Clozaril) [address] [place] [address] [phone] Norclozapine 482 ng/mL Clozapine Norclozapine Level 1347 ng/mL >450 16 Laboratory 03/01/2018 [facility] Hepatitis C Nonreactive Nonreactive test finding [address] [place] [address] [phone] Lipid Profile 03/01/2018 [facility] Triglycerides 171 mg/dL 17 (Trig/Chol/HD [address] L) [place] [address] [phone] Cholesterol 192 mg/dL 18 HDL Cholesterol 44.0 mg/dL 19 LDL Cholesterol 114 mg/dL 20 Comp Metabolic Panel 03/01/2018 [facility] Sodium 141 mmol/L N 135-145 [address] [place] [address] [phone] Potassium 4.0 mmol/L N 3.5-5.0 Chloride 104 mmol/L N 101-111 Co2 Carbon Dioxide 27 mmol/L N 22-32 Anion Gap 10 mmol/L N 2-11 Glucose 127 mg/dL High 70-100 Blood Urea Nitrogen 7 mg/dL N 6-24 Creatinine 1.02 mg/dL N 0.67-1.17 BUN/Creatinine Ratio 6.9 Low 8-20 Calcium 9.4 mg/dL N 8.6-10.3 Total Protein 6.3 g/dL Low 6.4-8.9 Albumin 4.2 g/dL N 3.2-5.2 Globulin 2.1 g/dL N 2-4 Albumin/Globulin Ratio 2.0 N 1-3 Total Bilirubin 0.30 mg/dL N 0.2-1.0 Alkaline Phosphatase 203 U/L High 34-104 Alt 14 U/L N 7-52 Ast 18 U/L N 13-39 Egfr Non- 75.0 >60 Egfr 90.8 >60 21 CBC Auto Diff 03/01/2018 [facility] White Blood 5.2 10^3/uL N 3.5-10.[address] [place] [address] [phone] Red Blood Count 5.29 10^6/uL N 4.00-5.40 Hemoglobin 16.0 g/dL N 14.0-18.0 Hematocrit 47 % N 42-52 Mean Corpuscular Volume 90 fL N 80-94 Mean Corpuscular Hemoglobin 30 pg N 27-31 Mean Corpuscular HGB Conc 34 g/dL N 31-36 Red Cell Distribution Width 14 % N 10.5-15 Platelet Count 200 10^3/uL N 150-450 Mean Platelet Volume 8.8 um3 N 7.4-10.4 Abs Neutrophils 4.0 10^3/uL N 1.5-7.7 Abs Lymphocytes 0.8 10^3/uL Low 1.0-4.8 Abs Monocytes 0.3 10^3/uL N 0-0.8 Abs Eosinophils 0.1 10^3/uL N 0-0.6 Abs Basophils 0.1 10^3/uL N 0-0.2 Abs Nucleated RBC 0 10^3/uL Granulocyte % 76.1 % N 38-83 Lymphocyte % 15.3 % Low 25-47 Monocyte % 6.4 % N 0-7 Eosinophil % 1.1 % N 0-6 Basophil % 1.1 % N 0-2 Nucleated Red Blood Cells % 0.1 Laboratory test 02/25/2018 [facility] Troponin-I 0.00 ng/mL < 0.[address] (TnI) [place] [address] [phone] Inr/Protime 02/25/2018 [facility] Inr 0.99 N 0.77-1.[address] [place] [address] [phone] CBC Auto Diff 02/25/2018 [facility] White Blood 8.6 N 3.5- 10.[address] Count 10^3/[place] [address] [phone] Red Blood Count 5.01 10^6/uL N 4.00-5.40 Hemoglobin 15.0 g/dL N 14.0-18.0 Hematocrit 44 % N 42-52 Mean Corpuscular Volume 88 fL N 80-94 Mean Corpuscular Hemoglobin 30 pg N 27-31 Mean Corpuscular HGB Conc 34 g/dL N 31-36 Red Cell Distribution Width 14 % N 10.5-15 Platelet Count 178 10^3/uL N 150-450 Mean Platelet Volume 8.2 um3 N 7.4-10.4 Abs Neutrophils 7.3 10^3/uL N 1.5-7.7 Abs Lymphocytes 0.6 10^3/uL Low 1.0-4.8 Abs Monocytes 0.6 10^3/uL N 0-0.8 Abs Eosinophils 0 10^3/uL N 0-0.6 Abs Basophils 0 10^3/uL N 0-0.2 Abs Nucleated RBC 0 10^3/uL Granulocyte % 85.5 % High 38-83 Lymphocyte % 6.8 % Low 25-47 Monocyte % 7.1 % High 0-7 Eosinophil % 0.3 % N 0-6 Basophil % 0.3 % N 0-2 Nucleated Red Blood Cells % 0.1 Laboratory test 02/25/2018 [facility] Lactic Acid 0.8 mmol/L N 0.5-2.0 22 finding [address] [place] [address] [phone] Troponin-I (TnI) 0.00 ng/mL <0.04 Comp Metabolic Panel 02/25/2018 [facility] Sodium 140 mmol/L N 135-145 [address] [place] [address] [phone] Potassium 3.5 mmol/L N 3.5-5.0 Chloride 107 mmol/L N 101-111 Co2 Carbon Dioxide 24 mmol/L N 22-32 Anion Gap 9 mmol/L N 2-11 Glucose 98 mg/dL N 70-100 Blood Urea Nitrogen 12 mg/dL N 6-24 Creatinine 1.15 mg/dL N 0.67-1.17 BUN/Creatinine Ratio 10.4 N 8-20 Calcium 9.0 mg/dL N 8.6-10.3 Total Protein 6.0 g/dL Low 6.4-8.9 Albumin 3.8 g/dL N 3.2-5.2 Globulin 2.2 g/dL N 2-4 Albumin/Globulin Ratio 1.7 N 1-3 Total Bilirubin 0.50 mg/dL N 0.2-1.0 Alkaline Phosphatase 134 U/L High 34-104 Alt 10 U/L N 7-52 Ast 14 U/L N 13-39 Egfr Non- 65.3 >60 Egfr 79.0 >60 23 Laboratory test 02/25/2018 [facility] Magnesium 1.9 mg/dL N 1.9-2.[address] [place] [address] [phone] TSH (Thyroid Stim Horm) 2.06 mcIU/mL N 0.34-5.60 Alcohol < 10 mg/dL N <10 Urinalysis Profile 02/02/2018 [facility] Urine Color Yellow [address] [place] [address] [phone] Urine Appearance Clear Urine Specific [place] 1.005 Low 1.010-1.030 Urine pH 6.0 N 5-9 Urine Urobilinogen Negative Negative Urine Ketones Negative Negative Urine Protein Negative Negative Urine Leukocytes Negative Negative Urine Blood Negative Negative Urine Nitrite Negative Negative Urine Bilirubin Negative Negative Urine Glucose Negative Negative CBC Auto Diff 02/02/2018 [facility] White Blood 8.7 10^3/uL N 3.5-10.[address] [place] [address] [phone] Red Blood Count 5.13 10^6/uL N 4.00-5.40 Hemoglobin 15.4 g/dL N 14.0-18.0 Hematocrit 46 % N 42-52 Mean Corpuscular Volume 89 fL N 80-94 Mean Corpuscular Hemoglobin 30 pg N 27-31 Mean Corpuscular HGB Conc 34 g/dL N 31-36 Red Cell Distribution Width 14 % N 10.5-15 Platelet Count 170 10^3/uL N 150-450 Mean Platelet Volume 8.3 um3 N 7.4-10.4 Abs Neutrophils 7.5 10^3/uL N 1.5-7.7 Abs Lymphocytes 0.6 10^3/uL Low 1.0-4.8 Abs Monocytes 0.6 10^3/uL N 0-0.8 Abs Eosinophils 0 10^3/uL N 0-0.6 Abs Basophils 0.1 10^3/uL N 0-0.2 Abs Nucleated RBC 0 10^3/uL Granulocyte % 85.9 % High 38-83 Lymphocyte % 6.7 % Low 25-47 Monocyte % 6.3 % N 0-7 Eosinophil % 0.5 % N 0-6 Basophil % 0.6 % N 0-2 Nucleated Red Blood Cells % 0 Laboratory test 02/02/2018 [facility] C Reactive 1.41 mg/L N < 5.[address] [place] [address] [phone] Comp Metabolic 02/02/2018 [facility] Sodium 138 mmol/L N 135- [address] [place] [address] [phone] Potassium 3.7 mmol/L N 3.5-5.0 Chloride 102 mmol/L N 101-111 Co2 Carbon Dioxide 27 mmol/L N 22-32 Anion Gap 9 mmol/L N 2-11 Glucose 112 mg/dL High 70-100 Blood Urea Nitrogen 8 mg/dL N 6-24 Creatinine 1.26 mg/dL High 0.67-1.17 BUN/Creatinine Ratio 6.3 Low 8-20 Calcium 9.2 mg/dL N 8.6-10.3 Total Protein 6.4 g/dL N 6.4-8.9 Albumin 4.0 g/dL N 3.2-5.2 Globulin 2.4 g/dL N 2-4 Albumin/Globulin Ratio 1.7 N 1-3 Total Bilirubin 0.40 mg/dL N 0.2-1.0 Alkaline Phosphatase 142 U/L High 34-104 Alt 12 U/L N 7-52 Ast 18 U/L N 13-39 Egfr Non- 58.8 >60 Egfr 75.6 >60 25 Laboratory 02/02/2018 [facility] Lactic Acid 1.6 mmol/L N 0.5- 2.0 [address] [place] [address] [phone] Laboratory 02/02/2018 [facility] D Dimer < 200 N Less Than [address] Quantitative ng/mL 230 [place] [address] [phone] Laboratory 02/01/2016 [facility] Lactic Acid 1.0 mmol/L N 0.5- 2.0 [address] [place] [address] [phone] CBC Auto Diff 02/01/2016 [facility] White Blood 8.1 N 3.5- 10.[address] Count 10^3/[place] [address] [phone] Red Blood Count 5.50 10^6/uL High 4.0-5.4 Hemoglobin 16.1 g/dL N 14.0-18.0 Hematocrit 48 % N 42-52 Mean Corpuscular Volume 87 fL N 80-94 Mean Corpuscular Hemoglobin 29 pg N 27-31 Mean Corpuscular HGB Conc 34 g/dL N 31-36 Red Cell Distribution Width 15 % N 10.5-15 Platelet Count 181 10^3/uL N 150-450 Mean Platelet Volume 9 um3 N 7.4-10.4 Abs Neutrophils 6.5 10^3/uL N 1.5-7.7 Abs Lymphocytes 0.9 10^3/uL Low 1.0-4.8 Abs Monocytes 0.5 10^3/uL N 0-0.8 Abs Eosinophils 0.1 10^3/uL N 0-0.6 Abs Basophils 0 10^3/uL N 0-0.2 Abs Nucleated RBC 0 10^3/uL N Granulocyte % 79.7 % N 38-83 Lymphocyte % 11.5 % Low 25-47 Monocyte % 6.6 % N 1-9 Eosinophil % 1.6 % N 0-6 Basophil % 0.6 % N 0-2 Nucleated Red Blood Cells % 0 N Comp Metabolic Panel 02/01/2016 [facility] Sodium 136 mmol/L N 133-[address] [place] [address] [phone] Chloride 103 mmol/L N 101-111 Co2 Carbon Dioxide 28 mmol/L N 22-32 Glucose 93 mg/dL N 70-100 Blood Urea Nitrogen 9 mg/dL N 6-24 Creatinine 1.02 mg/dL N 0.67-1.17 BUN/Creatinine Ratio 8.8 N 8-20 Calcium 9.1 mg/dL N 8.6-10.3 Total Protein 6.7 g/dL N 6.4-8.9 Albumin 4.2 g/dL N 3.2-5.2 Globulin 2.5 g/dL N 2-4 Albumin/Globulin Ratio 1.7 N 1-3 Total Bilirubin 0.60 mg/dL N 0.2-1.0 Alkaline Phosphatase 124 U/L High 34-104 Alt 15 U/L N 7-52 Egfr Non- 75.5 N >60 Egfr 97.2 N >60 29 Potassium 4.0 mmol/L N 3.5-5.0 Anion Gap 5 mmol/L N 2-11 Ast 22 U/L N 13-39 Laboratory test 02/01/2016 [facility] Magnesium 2.0 mg/dL N 1.9-2.7 finding [address] [place] [address] [phone] Troponin-I (TnI) 0.00 ng/mL N <0.03 30 TSH (Thyroid Stim Horm) 1.47 ?IU/mL N 0.34-5.60 Laboratory 10/09/2014 [facility] Methylmalonic 0.30 N <=0.40 31 test finding 101 [facility] Acid nmol/[place] [address] [phone] Lipid Profile 10/06/2014 [facility] Triglycerides 110 mg/dL N 32, (Trig/Chol/HDL [address] [place] [address] [phone] Cholesterol 184 mg/dL N 34 HDL Cholesterol 36.5 mg/dL N 35 LDL Cholesterol 126 mg/dL N 36 Laboratory test 10/06/2014 [facility] Glucose 102 mg/dL High 70-100 37 finding [address] [place] [address] [phone] Vitamin B12 256 pg/mL N 180-914 38 TSH (Thyroid Stimulating Horm) 1.86 IU/mL N 0.34-5.60 39 Laboratory test 05/25/2014 [facility] Magnesium 1.9 mg/dL N 1.9-2.7 finding [address] [place] [address] [phone] Troponin I 0.00 ng/mL N <0.03 40 TSH (Thyroid Stimulating Horm) 0.75 IU/mL N 0.34-5.60 Comp Metabolic Panel 05/25/2014 [facility] Sodium 136 mmol/L N 133-145 101 [place] [address] [phone] Potassium 3.8 mmol/L N 3.7-5.6 Chloride 101 mmol/L N 101-111 Co2 Carbon Dioxide 29 mmol/L N 22-32 Anion Gap 6 mmol/L N 2-11 Glucose 159 mg/dL High 70-100 Blood Urea Nitrogen 10 mg/dL N 6-24 Creatinine 1.01 mg/dL N 0.67-1.17 BUN/Creatinine Ratio 9.9 N 8-20 Calcium 8.6 mg/dL N 8.6-10.3 Total Protein 5.7 g/dL Low 6.4-8.9 Albumin 3.7 g/dL N 3.2-5.2 Globulin 2.0 g/dL N 2-4 Albumin/Globulin Ratio 1.9 N 1-3 Total Bilirubin 0.40 mg/dL N 0.2-1.0 Alkaline Phosphatase 118 U/L High 34-104 Alt 9 U/L N 7-52 Ast 14 U/L N 13-39 Egfr Non- 77.0 N >60 Egfr 99.0 N >60 41 CBC Auto Diff 05/25/2014 [facility] White Blood 6.6 10^3/uL N 4.8-10.[address] [place] [address] [phone] Red Blood Count 4.88 10^6/uL N 4.0-5.4 Hemoglobin 14.9 g/dL N 14.0-18.0 Hematocrit 44 % N 42-52 Mean Corpuscular Volume 90 fL N 80-94 Mean Corpuscular Hemoglobin 31 pg N 27-31 Mean Corpuscular HGB Conc 34 g/dL N 31-36 Red Cell Distribution Width 13 % N 10.5-15 Platelet Count 219 10^3/uL N 150-450 Mean Platelet Volume 7 um3 Low 7.4-10.4 Abs Neutrophils 5.3 10^3/uL N 1.5-7.7 Abs Lymphocytes 0.8 10^3/uL Low 1.0-4.8 Abs Monocytes 0.4 10^3/uL N 0-0.8 Abs Eosinophils 0 10^3/uL N 0-0.6 Abs Basophils 0.1 10^3/uL N 0-0.2 Abs Nucleated RBC 0 10^3/uL N Granulocyte % 81.1 % N 38-83 Lymphocyte % 12.2 % Low 25-47 Monocyte % 5.4 % N 1-9 Eosinophil % 0.4 % N 0-6 Basophil % 0.9 % N 0-2 Nucleated Red Blood Cells % 0 N Urinalysis Profile 05/07/2014 [facility] Urine Color Yellow [address] [place] [address] [phone] Urine Appearance Clear N Urine Specific [place] 1.017 N 1.010-1.030 Urine pH 6.0 N 5-9 Urine Urobilinogen Negative N Negative Urine Ketones Negative N Negative Urine Protein Negative N Negative Urine Leukocytes Negative N Negative Urine Blood Negative N Negative Urine Nitrite Negative N Negative Urine Bilirubin Negative N Negative Urine Glucose Negative N Negative CBC Auto Diff 05/07/2014 [facility] White Blood 9.5 10^3/uL N 4.8-10.[address] [place] [address] [phone] Red Blood Count 4.82 10^6/uL N 4.0-5.4 Hemoglobin 14.8 g/dL N 14.0-18.0 Hematocrit 43 % N 42-52 Mean Corpuscular Volume 90 fL N 80-94 Mean Corpuscular Hemoglobin 31 pg N 27-31 Mean Corpuscular HGB Conc 34 g/dL N 31-36 Red Cell Distribution Width 13 % N 10.5-15 Platelet Count 233 10^3/uL N 150-450 Mean Platelet Volume 7 um3 Low 7.4-10.4 Abs Neutrophils 8.3 10^3/uL High 1.5-7.7 Abs Lymphocytes 0.6 10^3/uL Low 1.0-4.8 Abs Monocytes 0.5 10^3/uL N 0-0.8 Abs Eosinophils 0 10^3/uL N 0-0.6 Abs Basophils 0 10^3/uL N 0-0.2 Abs Nucleated RBC 0.01 10^3/uL N Granulocyte % 88.3 % High 38-83 Lymphocyte % 5.8 % Low 25-47 Monocyte % 5.4 % N 1-9 Eosinophil % 0.1 % N 0-6 Basophil % 0.4 % N 0-2 Nucleated Red Blood Cells % 0.1 N Comp Metabolic Panel 05/07/2014 [facility] Sodium 136 mmol/L N 133-145 [address] [place] [address] [phone] Potassium 4.0 mmol/L N 3.7-5.6 Chloride 105 mmol/L N 101-111 Co2 Carbon Dioxide 27 mmol/L N 22-32 Anion Gap 4 mmol/L N 2-11 Glucose 105 mg/dL High 70-100 Blood Urea Nitrogen 8 mg/dL N 6-24 Creatinine 1.15 mg/dL N 0.67-1.17 BUN/Creatinine Ratio 7.0 Low 8-20 Calcium 8.7 mg/dL N 8.6-10.3 Total Protein 5.8 g/dL Low 6.4-8.9 Albumin 3.6 g/dL N 3.2-5.2 Globulin 2.2 g/dL N 2-4 Albumin/Globulin Ratio 1.6 N 1-3 Total Bilirubin 0.40 mg/dL N 0.2-1.0 Alkaline Phosphatase 124 U/L High 34-104 Alt 10 U/L N 7-52 Ast 20 U/L N 13-39 Egfr Non- 66.3 N >60 Egfr 85.2 N >60 42 Laboratory test 05/07/2014 [facility] Magnesium 1.9 mg/dL N 1.9-2.7 finding [address] [place] [address] [phone] Troponin I 0.00 ng/mL N <0.03 43 TSH (Thyroid Stimulating Horm) 0.91 IU/mL N 0.34-5.60 Laboratory test 03/10/2014 [facility] Troponin I 0.00 ng/mL N <0.03 44 finding [address] [place] [address] [phone] Comp Metabolic 03/10/2014 [facility] Sodium 138 mmol/L N 133- 145 Panel [address] [place] [address] [phone] Potassium 3.6 mmol/L Low 3.7-5.6 Chloride 105 mmol/L N 101-111 Co2 Carbon Dioxide 26 mmol/L N 22-32 Anion Gap 7 mmol/L N 2-11 Glucose 117 mg/dL High 70-100 Blood Urea Nitrogen 12 mg/dL N 6-24 Creatinine 1.14 mg/dL N 0.67-1.17 BUN/Creatinine Ratio 10.5 N 8-20 Calcium 9.1 mg/dL N 8.6-10.3 Total Protein 6.4 g/dL N 6.4-8.9 Albumin 4.0 g/dL N 3.2-5.2 Globulin 2.4 g/dL N 2-4 Albumin/Globulin Ratio 1.7 N 1-3 Total Bilirubin 0.50 mg/dL N 0.2-1.0 Alkaline Phosphatase 129 U/L High 34-104 Alt 18 U/L N 7-52 Ast 21 U/L N 13-39 Egfr Non- 66.9 N >60 Egfr 86.1 N >60 45 CBC Auto 03/10/2014 [facility] White Blood 12.0 10^3/uL High 4.8-10.[address] [place] [address] [phone] Red Blood Count 5.33 10^6/uL N 4.0-5.4 Hemoglobin 16.3 g/dL N 14.0-18.0 Hematocrit 47 % N 42-52 Mean Corpuscular Volume 89 fL N 80-94 Mean Corpuscular Hemoglobin 31 pg N 27-31 Mean Corpuscular HGB Conc 34 g/dL N 31-36 Red Cell Distribution Width 13 % N 10.5-15 Platelet Count 217 10^3/uL N 150-450 Mean Platelet Volume 8 um3 N 7.4-10.4 Abs Neutrophils 10.8 10^3/uL High 1.5-7.7 Abs Lymphocytes 0.5 10^3/uL Low 1.0-4.8 Abs Monocytes 0.6 10^3/uL N 0-0.8 Abs Eosinophils 0 10^3/uL N 0-0.6 Abs Basophils 0 10^3/uL N 0-0.2 Abs Nucleated RBC 0.01 10^3/uL N Granulocyte % 90.1 % High 38-83 Lymphocyte % 4.6 % Low 25-47 Monocyte % 4.8 % N 1-9 Eosinophil % 0.1 % N 0-6 Basophil % 0.4 % N 0-2 Nucleated Red Blood Cells % 0.1 N Urinalysis Profile 03/10/2014 [facility] Urine Color Yellow N [address] [place] [address] [phone] Urine Appearance Clear N Urine Specific [place] 1.023 N 1.010-1.030 Urine pH 5.0 N 5-9 Urine Urobilinogen Negative N Negative Urine Ketones Trace N Negative Urine Protein Negative N Negative Urine Leukocytes Negative N Negative Urine Blood Negative N Negative Urine Nitrite Negative N Negative Urine Bilirubin Negative N Negative Urine Glucose Negative N Negative Liver Function 04/10/2012 [facility] Total Protein 5.9 GM/DL Low 6.2-8.1 46 Panel [address] [place] [address] [phone] Albumin 4.1 GM/DL 3.6-5.4 Globulin 1.8 GM/DL Low 2-4 Albumin/Globulin Ratio 2.3 1-3 Bilirubin Total 0.8 mg/dL 0.4-1.5 47 Bilirubin Direct 0.1 mg/dL 0.1-0.5 Indirect Bilirubin 0.7 mg/dL 0.3-1.0 48 Alkaline Phosphatase 123 U/L High 39-117 Alt (SGPT) 18 U/L 17-63 Ast (Sgot) 22 U/L 12-42 PTH Intact, Inc 04/10/2012 [facility] PTH Intact 5.2 PMOL/L 1.3-9.3 Total Calcium [address] [place] [address] [phone] Calcium For Pthi 9.3 mg/dL 8.1-9.9 49 Liver Function 10/04/2011 [facility] Total Protein 5.9 GM/DL Low 6.2-8.1 Panel [address] [place] [address] [phone] Albumin 4.1 GM/DL 3.6-5.4 Globulin 1.8 GM/DL Low 2-4 Albumin/Globulin Ratio 2.3 1-3 Bilirubin Total 0.6 mg/dL 0.4-1.5 50 Bilirubin Direct 0.1 mg/dL 0.1-0.5 Indirect Bilirubin 0.5 mg/dL 0.3-1.0 51 Alkaline Phosphatase 125 U/L High 39-117 Alt (SGPT) 14 U/L Low 17-63 Ast (Sgot) 17 U/L 12-42 Laboratory test 10/04/2011 [facility] GGTP 7 U/L 7-50 finding [address] [place] [address] [phone] CBC Auto Diff 09/26/2011 [facility] White Blood 6.4 CUMM 4.8- 10.8 52 [address] [facility] [place] [address] [phone] Red Cell Count 4.89 CUMM 4.6-6.2 Hemoglobin 16.3 g/dL 14.0-18.0 Hematocrit 46 % 42-52 Mean Corpuscular Volume 94 um3 80-94 Mean Corpuscular Hemoglob 33 pg High 27-31 Mean Corpuscular HGB Cone 35 g/dL 32-36 Redcell Distribution WDTH 14 % 10.5-15 Platelet Count 192 CUMM 150-450 Mean Platelet Volume 9.2 um3 7.4-10.4 53 Comp Metabolic Panel 09/26/2011 [facility] Sodium 136 mmol/L 135-[address] [place] [address] [phone] Potassium 4.3 mmol/L 3.5-5.0 Chloride 104 mmol/L 101-111 Co2 (Carbon Dioxide) 28.0 mmol/L 22-32 Anion Gap 4.0 mmol/L 2-11 54 Glucose 83 mg/dL 70-100 BUN 8 mg/dL 6-24 Creatinine 1.3 mg/dL 0.50-1.40 One Over Creatinine 0.76 BUN/Creatinine Ratio 6.2 Low 8-20 Calcium 9.0 mg/dL 8.1-9.9 Total Protein 6.3 GM/DL 6.2-8.1 Albumin 4.0 GM/DL 3.6-5.4 Globulin 2.3 GM/DL 2-4 Albumin/Globulin Ratio 1.7 1-3 Bilirubin Total 0.7 mg/dL 0.4-1.5 55 Alkaline Phosphatase 130 U/L High 39-117 Alt (SGPT) 13 U/L Low 17-63 Ast (Sgot) 16 U/L 12-42 eGFR Non- 58.0 > 60 eGFR 74.6 > 60 56 Lipid Profile 09/26/2011 [facility] Triglyceride 126 mg/dL 40 -200 (Trig/Chol/HDL) [address] [place] [address] [phone] Cholesterol 175 mg/dL Less Than 200 57 High Density Lipoprotein 31 mg/dL Low 40-60 58 Cholesterol/HDL Ratio 5.65 AVERAGE High 1-4.97 Low Density Lipoprotein 119 mg/dL High Less Than 100 59 Laboratory test 09/26/2011 [facility] PSA 0.53 0-4 [address] NG/[place] [address] [phone] Manual 09/26/2011 [facility] Polysegmented 64 % 38-[address] [place] [address] [phone] Band Neutrophil 1 % 0-8 Lymphocyte 30 % 25-47 Monocyte 4 % 0-13 Eosinophil 1 % 0-6 Absolute Neutrophil Count 4.1 RBC Morphology NORMAL 1 Because ethnic data is not always readily available, this report includes an eGFR for both -Americans and non- Americans. The National Kidney Disease Education Program (NKDEP) does not endorse the use of the MDRD equation for patients that are not between the ages of 18 and 70, are , have extremes of body size, muscle mass, or nutritional status, or are non- or non-. According to the National Kidney Foundation, irrespective of diagnosis, the stage of the disease is based on the level of kidney function: Stage Description GFR(mL/min/1.73 m(2)) 1 Kidney damage with normal or decreased GFR 90 2 Kidney damage with mild decrease in GFR 60-89 3 Moderate decrease in GFR 30-59 4 Severe decrease in GFR 15-29 5 Kidney failure <15 (or dialysis) 2 Normal Range 180 to 914 Indeterminate Range 145 to 180 Deficient Range <145 3 ADDITIONAL INFORMATION This test was developed and its performance characteristics determined by [facility] in a manner consistent with CLIA requirements. This test has not been cleared or approved by the U.S. Food and Drug Administration. Test Performed by: [facility] mymission[facility] - [address] [address] 4 ADDITIONAL INFORMATION This test was developed and its performance characteristics determined by [facility] in a manner consistent with CLIA requirements. This test has not been cleared or approved by the U.S. Food and Drug Administration. Test Performed by: [facility] [place] [address] 5 Normal Range 180 to 914 Indeterminate Range 145 to 180 Deficient Range <145 6 Because ethnic data is not always readily available, this report includes an eGFR for both -Americans and non- Americans. The National Kidney Disease Education Program (NKDEP) does not endorse the use of the MDRD equation for patients that are not between the ages of 18 and 70, are , have extremes of body size, muscle mass, or nutritional status, or are non- or non-. According to the National Kidney Foundation, irrespective of diagnosis, the stage of the disease is based on the level of kidney function: Stage Description GFR(mL/min/1.73 m(2)) 1 Kidney damage with normal or decreased GFR 90 2 Kidney damage with mild decrease in GFR 60-89 3 Moderate decrease in GFR 30-59 4 Severe decrease in GFR 15-29 5 Kidney failure <15 (or dialysis) 7 The urine specimen was tested at the listed cutoffs: Drug class test level (ng/mL) Amphetamines 500 Barbiturates 200 Benzodiazepine metabolites 200 Cocaine metabolites 150 Cannabinoids 50 Opiates 300 Pcp 25 Specimen was received without chain of custody. Results should be used for medical purposes only. 8 Therapeutic concentration: <50 ug/mL Toxic concentration: >120 ug/mL 9 Because ethnic data is not always readily available, this report includes an eGFR for both -Americans and non- Americans. The National Kidney Disease Education Program (NKDEP) does not endorse the use of the MDRD equation for patients that are not between the ages of 18 and 70, are , have extremes of body size, muscle mass, or nutritional status, or are non- or non-. According to the National Kidney Foundation, irrespective of diagnosis, the stage of the disease is based on the level of kidney function: Stage Description GFR(mL/min/1.73 m(2)) 1 Kidney damage with normal or decreased GFR 90 2 Kidney damage with mild decrease in GFR 60-89 3 Moderate decrease in GFR 30-59 4 Severe decrease in GFR 15-29 5 Kidney failure <15 (or dialysis) 10 Critical Result LACT:2.8 Called to CHRISTEL at: 16:55:35 by:[email or web address] Read back by:CHRISTEL BLACK Severe Sepsis and Septic Shock Management Bundle Measure requires all lactic acids initially measuring >2.0 mmol/L be repeated. 11 SEE RESULT BELOW Name: FARTUN CASTELLANOS : [address]: Rock Gill MD Acct: [id number] Unit: [id number] AGE: 57 Location: ED Re05/29/18 SEX: M Status: DEP ER SPEC: [id number] IVONNE: 05/29/[address] [facility] DR: Rock Gill MD REQ: [id number] RECD: 05/29/18 STATUS: MANDY HODGE DR: Brina Evangelista MD _ SOURCE: BLOOD,VENO SPDES: ORDERED: Blood Cult Procedure Result Reported Site Aerobic Culture Bottle Final 06/03/18- 1256 ML No Growth Day 5 Anaerobic Culture Bottle Final 06/03/18- 1256 ML No Growth Day 5 * ML - Main Lab . END OF REPORT DEPARTMENT OF PATHOLOGY, [address] [place] [address] Laurent Rivas M.D. Director [facility] # [id number] 12 Because ethnic data is not always readily available, this report includes an eGFR for both -Americans and non- Americans. The National Kidney Disease Education Program (NKDEP) does not endorse the use of the MDRD equation for patients that are not between the ages of 18 and 70, are , have extremes of body size, muscle mass, or nutritional status, or are non- or non-. According to the National Kidney Foundation, irrespective of diagnosis, the stage of the disease is based on the level of kidney function: Stage Description GFR(mL/min/1.73 m(2)) 1 Kidney damage with normal or decreased GFR 90 2 Kidney damage with mild decrease in GFR 60-89 3 Moderate decrease in GFR 30-59 4 Severe decrease in GFR 15-29 5 Kidney failure <15 (or dialysis) 13 >100 to <200 pg/mL: likely compensated congestive heart failure (CHF) 200 to 400 pg/mL: likely moderate CHF >400 pg/mL: likely moderate to severe CHF 14 [place] Severe Sepsis and Septic Shock Management Bundle Measure requires all lactic acids initially measuring >2.0 mmol/L be repeated. 15 It is recognized that currently available assays for the detection of antibodies to HIV-1 and/or HIV-2 may not detect all infected individuals. HIV antibodies may be undetectable in some stages of the infection and in some clinical conditions. The performance of this assay has not been established for populations of infants or children. Assayed by Chemiluminescence Microparticle Immunoassay on the [employer] CP. Values obtained with different methods or kits cannot be used interchangeably.The diagnostic specificity of the [employer] Centaur 1/O/2 Enhanced assay in the low risk population was 99.90% (6052/6058) with a 95% confidence interval of 99.78 to 99.96%. 16 ADDITIONAL INFORMATION This test was developed and its performance characteristics determined by [facility] in a manner consistent with CLIA requirements. This test has not been cleared or approved by the U.S. Food and Drug Administration. Test Performed by: [facility] - [facility] [address] [place] [address] 17 Desirable: <150 Borderline High: 150-199 High: 200-499 Very High: >500 18 Desirable: <200 Borderline High: 200-239 High: >239 19 Low: <40 Desirable: 40-60 High: >60 20 Desirable: <100 Near Optimal: 100-129 Borderline High: 130-159 High: 160-189 Very High: >189 21 Because ethnic data is not always readily available, this report includes an eGFR for both -Americans and non- Americans. The National Kidney Disease Education Program (NKDEP) does not endorse the use of the MDRD equation for patients that are not between the ages of 18 and 70, are , have extremes of body size, muscle mass, or nutritional status, or are non- or non-. According to the National Kidney Foundation, irrespective of diagnosis, the stage of the disease is based on the level of kidney function: Stage Description GFR(mL/min/1.73 m(2)) 1 Kidney damage with normal or decreased GFR 90 2 Kidney damage with mild decrease in GFR 60-89 3 Moderate decrease in GFR 30-59 4 Severe decrease in GFR 15-29 5 Kidney failure <15 (or dialysis) 22 [facility] Severe Sepsis and Septic Shock Management Bundle Measure requires all lactic acids initially measuring >2.0 mmol/L be repeated. 23 Because ethnic data is not always readily available, this report includes an eGFR for both -Americans and non- Americans. The National Kidney Disease Education Program (NKDEP) does not endorse the use of the MDRD equation for patients that are not between the ages of 18 and 70, are , have extremes of body size, muscle mass, or nutritional status, or are non- or non-. According to the National Kidney Foundation, irrespective of diagnosis, the stage of the disease is based on the level of kidney function: Stage Description GFR(mL/min/1.73 m(2)) 1 Kidney damage with normal or decreased GFR 90 2 Kidney damage with mild decrease in GFR 60-89 3 Moderate decrease in GFR 30-59 4 Severe decrease in GFR 15-29 5 Kidney failure <15 (or dialysis) 24 Acute inflammation: >10.00 25 Because ethnic data is not always readily available, this report includes an eGFR for both -Americans and non- Americans. The National Kidney Disease Education Program (NKDEP) does not endorse the use of the MDRD equation for patients that are not between the ages of 18 and 70, are , have extremes of body size, muscle mass, or nutritional status, or are non- or non-. According to the National Kidney Foundation, irrespective of diagnosis, the stage of the disease is based on the level of kidney function: Stage Description GFR(mL/min/1.73 m(2)) 1 Kidney damage with normal or decreased GFR 90 2 Kidney damage with mild decrease in GFR 60-89 3 Moderate decrease in GFR 30-59 4 Severe decrease in GFR 15-29 5 Kidney failure <15 (or dialysis) 26 [facility] Severe Sepsis and Septic Shock Management Bundle Measure requires all lactic acids initially measuring >2.0 mmol/L be repeated. 27 Please note: The following may produce a false positive D Dimer test: - Rheumatoid factor greater than 60 IU/ml - Plasma hemoglobin greater than 0.05 gm/dl - Bilirubin greater than 50 mg/dl - Lipids greater than 1000 mg/dl - FDP greater than 20 ug/ml 28 [facility] Severe Sepsis and Septic Shock Management Bundle Measure requires all lactic acids initially measuring >2.0 mmol/L be repeated. 29 Because ethnic data is not always readily available, this report includes an eGFR for both -Americans and non- Americans. The National Kidney Disease Education Program (NKDEP) does not endorse the use of the MDRD equation for patients that are not between the ages of 18 and 70, are , have extremes of body size, muscle mass, or nutritional status, or are non- or non-. According to the National Kidney Foundation, irrespective of diagnosis, the stage of the disease is based on the level of kidney function: Stage Description GFR(mL/min/1.73 m(2)) 1 Kidney damage with normal or decreased GFR 90 2 Kidney damage with mild decrease in GFR 60-89 3 Moderate decrease in GFR 30-59 4 Severe decrease in GFR 15-29 5 Kidney failure <15 (or dialysis) 30 Reference Range and Interpretation: TnI (ng/mL) Interpretation Less Than 0.03 ng/mL Not supportive of diagnosis of IA 0.03 - 0.50 ng/mL Indeterminate: suggest serial studies if clinically indicated. Greater than 0.5 ng/mL Consistent with diagnosis of IA 31 Test Performed by: [place] [address] Jewelry Inspector: Don Rai II, M.D., Ph.D. 32 PT IS FASTING 33 Desirable <150 Borderline high 150-199 High 200-499 Very High >500 34 Desirable <200 Borderline high 200-239 High >239 35 Low <40 Desirable: 40-60 High: >60 36 Desirable <100 Near Optimal 100-129 Borderline high 130-159 High 160-189 Very High >189 37 PT IS FASTING 38 Normal Range 180 to 914 Indeterminate Range 145 to 180 Deficient Range <145 39 PT IS FASTING 40 Reference Range and Interpretation: TnI (ng/mL) Interpretation Less Than 0.03 ng/mL Not supportive of diagnosis of IA 0.03 - 0.50 ng/mL Indeterminate: suggest serial studies if clinically indicated. Greater than 0.5 ng/mL Consistent with diagnosis of IA 41 Because ethnic data is not always readily available, this report includes an eGFR for both -Americans and non- Americans. The National Kidney Disease Education Program (NKDEP) does not endorse the use of the MDRD equation for patients that are not between the ages of 18 and 70, are , have extremes of body size, muscle mass, or nutritional status, or are non- or non-. According to the National Kidney Foundation, irrespective of diagnosis, the stage of the disease is based on the level of kidney function: Stage Description GFR(mL/min/1.73 m(2)) 1 Kidney damage with normal or decreased GFR 90 2 Kidney damage with mild decrease in GFR 60-89 3 Moderate decrease in GFR 30-59 4 Severe decrease in GFR 15-29 5 Kidney failure <15 (or dialysis) 42 Because ethnic data is not always readily available, this report includes an eGFR for both -Americans and non- Americans. The National Kidney Disease Education Program (NKDEP) does not endorse the use of the MDRD equation for patients that are not between the ages of 18 and 70, are , have extremes of body size, muscle mass, or nutritional status, or are non- or non-. According to the National Kidney Foundation, irrespective of diagnosis, the stage of the disease is based on the level of kidney function: Stage Description GFR(mL/min/1.73 m(2)) 1 Kidney damage with normal or decreased GFR 90 2 Kidney damage with mild decrease in GFR 60-89 3 Moderate decrease in GFR 30-59 4 Severe decrease in GFR 15-29 5 Kidney failure <15 (or dialysis) 43 Reference Range and Interpretation: TnI (ng/mL) Interpretation Less Than 0.03 ng/mL Not supportive of diagnosis of IA 0.03 - 0.50 ng/mL Indeterminate: suggest serial studies if clinically indicated. Greater than 0.5 ng/mL Consistent with diagnosis of IA 44 Reference Range and Interpretation: TnI (ng/mL) Interpretation Less Than 0.03 ng/mL Not supportive of diagnosis of IA 0.03 - 0.50 ng/mL Indeterminate: suggest serial studies if clinically indicated. Greater than 0.5 ng/mL Consistent with diagnosis of IA 45 Because ethnic data is not always readily available, this report includes an eGFR for both -Americans and non- Americans. The National Kidney Disease Education Program (NKDEP) does not endorse the use of the MDRD equation for patients that are not between the ages of 18 and 70, are , have extremes of body size, muscle mass, or nutritional status, or are non- or non-. According to the National Kidney Foundation, irrespective of diagnosis, the stage of the disease is based on the level of kidney function: Stage Description GFR(mL/min/1.73 m(2)) 1 Kidney damage with normal or decreased GFR 90 2 Kidney damage with mild decrease in GFR 60-89 3 Moderate decrease in GFR 30-59 4 Severe decrease in GFR 15-29 5 Kidney failure <15 (or dialysis) 46 NON FASTING 47 A metabolite of Naproxen, O-desmethylnaproxen, has been shown to interfere with the [place] method for measuring total bilirubin. Samples from patients who have taken Naproxen have shown spurious elevation in total bilirubin levels. 48 Please note updated reference range, effective 03/10/10 49 Please note change in reference range effective 08 . 50 A metabolite of Naproxen, O-desmethylnaproxen, has been shown to interfere with the Jendrassik-Jen method for measuring total bilirubin. Samples from patients who have taken Naproxen have shown spurious elevation in total bilirubin levels. 51 Please note updated reference range, effective 03/10/10 52 FASTING 53 Lymphopenia % 54 Anion gap measurement may be of limited value in the presence of any alkalosis, especially in a combined acid base disorder. . 55 A metabolite of Naproxen, O-desmethylnaproxen, has been shown to interfere with the Jendrassik-Jen method for measuring total bilirubin. Samples from patients who have taken Naproxen have shown spurious elevation in total bilirubin levels. 56 Because ethnic data is not always readily available, this report includes an eGFR for both -Americans and non- Americans. The National Kidney Disease Education Program (NKDEP) does not endorse the use of the MDRD equation for patients that are not between the ages of 18 and 70, are , have extremes of body size, muscle mass, or nutritional status, or are non- or non-. According to the National Kidney Foundation, irrespective of diagnosis, the stage of the disease is based on the level of kidney function: Stage Description GFR(mL/min/1.73 m(2)) 1 Kidney damage with normal or decreased GFR 90 2 Kidney damage with mild decrease in GFR 60-89 3 Moderate decrease in GFR 30-59 4 Severe decrease in GFR 15-29 5 Kidney failure <15 (or dialysis) 57 CHOLESTEROL INTERPRETATION: Desirable: Less than 200 MG/DL Borderline-High Risk: 200-239 MG/DL High-Risk: 240 MG/DL and over 58 HDL INTERPRETATION: Undesirable: High Risk: Less than 40 MG/DL Desirable: Low Risk: Greater than 60 MG/DL 59 LDL INTERPRETATION: Low Risk Optimal Level: LDL Less than 100 MG/DL Near or Above Optimal: LDL 100-129 MG/DL Borderline High Risk: LDL 130-159 MG/DL High Risk: LDL 160-189 MG/DL Very High Risk: LDL Greater than 189 MG/DL 60 * SERUM LEVELS OF PSA MEASURED USING THE Canvace ACCESS HYBRITECH IMMUNOASSAY SHOULD NOT BE INTERPRETED ABSOLUTE EVIDENCE OF THE PRESENCE OR ABSENCE OF DISEASE. THE PSA VALUE SHOULD BE USED IN CONJUNCTION WITH OTHER PERTINENT CLINICAL DIAGNOSTIC PROCEDURES. A PSA value in the range of 0.1 to 0.6 ng/ml is indeterminate if being used as an indicator of recurrent or residual disease. . The values obtained with different assay methods of kits cannot be used interchangeably. Procedures Date Code Description Status 07/26/2018 13316 EEG Recording Awake & Drowsy Completed 10/13/2011 92077887 Colonoscopy Completed 08/30/2011 37512 EKG Tracing & Interpretation Completed Encounters Type Date Location Provider Dx Diagnosis Office Visit 07/24/2018 [place] [facility] S. R56.9 Unspecified 9:00a [facility] Chavira M.D. 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 [facility] Routine AT [facility] Care [facility] 780.79 Malaise And Fatigue Other 386.11 Vertigo Benign Paroxysmal Position Office Visit 05/14/2014 11:50a [facility] Internal Brina Evangelista, 780.2 Syncope & Medicine Loly Dawn Collapse [place] V04.81 Need For Prophylactic Vaccination & Inoculation/Influenza Office Visit 08/28/2012 9:10a [facility] Internal Brina V72.83 Examination Carla Evangelista M.D. Preoperative Other [place] Spec 366.8 Cataract Other 305.1 Tobacco Use Disorder v04.81 Need For Prophylactic Vaccination & Inoculation/Influenza 691.8 Dermatitis Atopic & Related Conditions Other Office Visit 04/10/2012 10:10a [facility] Cassi Evangelista, 305.1 Tobacco Use Medicine - M.DJai Disorder [place] 790.6 Abnormal Blood Chemistry Other Office Visit 10/04/2011 10:30a [facility] Internal Brina Evangelista, 305.1 Tobacco Use Medicine - M.DJai Disorder [place] 790.6 Abnormal Blood Chemistry Other 278.02 Overweight Office Visit 08/30/2011 10:30a [facility] Cassi Gonsalves V70.0 Examination Carla Evangelista M.D. [facility] Routine AT [facility] Care Facility 305.1 Tobacco Use Disorder v04.81 Need For Prophylactic Vaccination & Inoculation/Influenza V06.1 Cjupazcohf-Nyajsrl-Fzuxillx Combined (DTaP) Plan of Treatment 09/23/2018 - [facility] Chavira M.D.R41.3 Other amnesiaRecommendations:take your medications exactly as prescribed or consider a switch to a long acting uyuydA97.9 Unspecified convulsionsRecommendations:call me if there are any more xweyskuoA51.9 Schizoaffective disorder, unspecifiedFollow up:send all lab results, MRI, EEG to Riddhi Marie [facility]
[2018-10-10 08:09] LABS: ABS Basophils 0 10^3/ul (0-0.2); ABS Eosinophils 0 10^3/ul (0-0.6); ABS Lymphocytes 0.8 10^3/ul (1.0-4.8); ABS Monocytes 0.5 10^3/ul (0-0.8); ABS Neutrophils 5.8 10^3/ul (1.5-7.7); ABS Nucleated RBC 0 10^3/ul; Eosinophil % 0.4 %; Hematocrit 51 % (42-52); Hemoglobin 16.7 g/dl (14.0-18.0); Lymphocyte % 11.1 %; Mean Corpuscular HGB Conc 33 g/dl (31-36); Mean Corpuscular Hemoglobin 30 pg (27-31); Mean Corpuscular Volume 93 fL (80-94); Mean Platelet Volume 8.5 fL (7.4-10.4); Nucleated Red Blood Cells % 0; Platelet Count 183 10^3/ul (150-450); Red Blood Count 5.52 10^6/ul (4.00-5.40); Red Cell Distribution Width 15 % (10.5-15); White Blood Count 7.2 10^3/ul (3.5-10.8)
[2018-10-10 08:20] LABS: Activated Partial Thrombo Time 31.4 seconds (26.0-36.3); INR 0.92 (0.77-1.02)
[2018-10-10 08:22] LABS: ALT 11 U/L (7-52); AST 18 U/L (13-39); Albumin 3.8 g/dL (3.2-5.2); Albumin/Globulin Ratio 1.5 (1-3); Alkaline Phosphatase 191 U/L (34-104); Anion Gap 8 mmol/L (2-11); BUN/Creatinine Ratio 11.3 (8-20); Blood Urea Nitrogen 11 mg/dL (6-24); CO2 Carbon Dioxide 25 mmol/L (22-32); Calcium 9.1 mg/dL (8.6-10.3); Chloride 106 mmol/L (101-111); Creatine Kinase 48 U/L (10-223); EGFR African American 95.9 (>60); EGFR Non-African American 79.2 (>60); Globulin 2.5 g/dL (2-4); Glucose 114 mg/dL (70-100); Sodium 139 mmol/L (135-145); Total Protein 6.3 g/dL (6.4-8.9)
[2018-10-10 08:26] LABS: BNP 10 pg/mL (<=100)
[2018-10-10 08:44] LABS: Alcohol < 10 mg/dL (<10)
[2018-10-10 08:57] LABS: TSH (Thyroid Stimulating Horm) 2.37 mcIU/mL (0.34-5.60)
[2018-10-10 09:16] LABS: Barbiturates Urine Screen None Detected (None Detect); Benzodiazepine Urine Screen None Detected (None Detect); Urine Cannabinoids Screen None Detected (None Detect)
[2018-10-10 09:25] LABS: Urine Appearance Clear; Urine Bacteria Absent (Absent); Urine Bilirubin Negative (Negative); Urine Blood Negative (Negative); Urine Color Amber; Urine Glucose Negative (Negative); Urine Ketones Trace (Negative); Urine Nitrite Negative (Negative); Urine Protein 1+(30 mg/dL) (Negative); Urine Red Blood Cell Trace(0-2/hpf) (Absent); Urine Specific Gravity 1.023 (1.010-1.030); Urine Urobilinogen Positive (Negative); Urine White Blood Cell Absent (Absent)
[2018-10-10] MEDS ORDERED: Valproic Acid IV(*) 1,000 MG in NS 0.9% 100 ML* 100 ML IVPB ONE (12:03)
[2018-10-10] MEDS ORDERED: levETIRAcetam IV* 1,000 MG in NS 0.9% 100 ML* 100 ML IVPB SCH (13:00)
[2018-10-10] MEDS ORDERED: Ondansetron INJ* 2 MG/ML VIAL IV PRN (13:05)
[2018-10-10] MEDS ORDERED: LORazepam INJ* 2 MG/ML 1 ML VIAL IV PUSH ONE (13:08)
[2018-10-10] MEDS ORDERED: LORazepam INJ* 2 MG/ML 1 ML VIAL ONE (13:09)
[2018-10-10] MEDS ORDERED: NS 0.9% 100 ML* 100 ML ONE (13:09)
--- NOTE | 2018-10-10 13:24 | EEG ---
ELECTROENCEPHALOGRAM REPORT: DATE OF STUDY: 10/10/18 REFERRING PHYSICIAN: Dr. Mcdonough. LOCATION: He is in the emergency room to be admitted. CLINICAL HISTORY: Episode of loss of consciousness the morning of this recording. There is a prior h istory of episodes of possible seizures. MEDICATIONS: Include: 1. Benztropine. 2. Clozaril. EEG DESCRIPTION: This 16-channel EEG is remarkable for background rhythms consisting of fairly diffu se slow activity with a posterior rhythm at about 7 cycles per second. Posterior rhythms are a bit m ore consistent from the left occipital than the right occipital region. Episodically and not infrequ ently throughout the recording, there are spike and slow-wave discharges emanating from the right tem poral and parasagittal area. There is a mirror focus on the left side, but no independent left hemis phere discharges. There are no clinical accompaniments other than the occasional facial twitching wh ich may correlate with the spike and slow wave discharges. Activation procedures are not attempted. The patient drowses intermittently throughout the recording, but stage II sleep is not achieved. INTERPRETATION: Abnormal EEG due to spike and slow wave discharges emanating from the right hemisphe re, not infrequently throughout the recording. These may correlate with some facial twitching, but t here are no other ictal events during the recording. This tracing is compatible with a diagnosis of a focal onset seizure disorder. [id number]/[facility] #: [id number]
--- NOTE | 2018-10-10 14:28 | CONS ---
NEUROLOGY CONSULTATION: DATE OF CONSULT: 10/10/18 LOCATION: He is in the emergency room, to be admitted. REFERRING PROVIDER: Dr. Mcdonough. CHIEF COMPLAINT: Seizures. HISTORY OF PRESENT ILLNESS: Siemon Castellanos is a 58-year-old man known to me from a prior evaluation for episodes of loss of consciousness. He had a possible seizure or at least an episode of loss of consciousness this past June and was evaluated in the emergency room. He has been on Clozaril ch ronically for psychosis. Dr. Ward's emergency room note indicates that he had an observed seizure, but there was no description of it. I subsequently saw him in the office. He was taking Clozaril and his comp field case manager who accompanied him said he was not taking it reliably. They were certain he had m issed some doses, but they were not sure if he had doubled up on doses. He had an EEG, which reveale d a single temporal sharp wave and an MRI scan, which was normal, other than being limited by movemen t. I decided not to treat him with anticonvulsants, but rather recommended that he have his medicati ons supervised so that it is not self-administered. I told him to call me if he has recurrent seizur e. He was brought in today with an apparent seizure at his mental health facility where he lives. His m other is with him currently in the emergency room exam room. In talking to Simeon, he has intermitte nt brief clonic twitches of the left face and left hand. Rarely, he has them of the left arm. He is conversant throughout that and follows commands. Finger taps are slow on the left and normal on the right. He has hypophonic and dysarthric speech, but it seems similar to me to what it was when I sa w him in the office. He is mentally sluggish, but again this was how he was when I saw him. He has antigravity strength in all limbs without drift. He has bilateral Babinski signs. Eye movements are full. Facial sensation is intact, as is sensation in the limbs to light touch. DIAGNOSTIC STUDIES/LAB DATA: From today notable for CAT scan of the brain interpreted as normal. He had an MRI of the brain on 09/13/18, again interpreted as normal, other than limited by movement a rtifact. Other laboratory studies today notable for normal CBC, urinalysis 1+ protein and positive urobilinoge n, normal INR and PTT. Chemistry profile notable for a glucose of 114 and an alkaline phosphatase of 191. Chemistry profile was, otherwise, unremarkable. CK is 48 and ammonia level 47 today. IMPRESSION AND PLAN: Impression is that of focal onset epilepsy. I asked his nurse to give him 2 mg of lorazepam IV, which was administered. He became sleepy and the facial twitching subsided to 1 ev sage few minutes. He had an EEG earlier, which I reviewed and it reveals right temporal spike and slo w wave discharges. Some of them coincided with the facial twitching. There were no prolonged dischar ges or other ictal events. I have spoken earlier with Dr. Mcdonough and recommended that he be given IV Depakote 1000 mg. It was o rdered, but not yet administered and so I have spoken with his nurse, who called pharmacy and is arra nging to have it expedited. I am going to repeat his EEG later today and then again tomorrow. If he does not wake up and respond appropriately, I will need to consider transferring him for continuous EEG monitoring. Prior to the Ativan, he is conversant and following commands and so I do not see janessa medina for that currently. I will continue to follow him. [id number]/[facility] #: [id number]
--- NOTE | 2018-10-10 15:29 | HP ---
CC: Dr. Evangelista; Dr. Chavira * ADMISSION HISTORY AND PHYSICAL: DATE OF ADMISSION: 10/10/18 PRIMARY CARE PROVIDER: Dr. Evangelista. HEALTHCARE PROXY: His mother. CODE STATUS: Full. SOURCE OF INFORMATION: History obtained from interview with patient, his mother , discussion with Dr. Chavira, discussion with Dr. Mcdonough in the emergency room as well as records from [facility]. RELIABILITY: Poor. CHIEF COMPLAINT: Syncope versus seizures. HISTORY OF PRESENT ILLNESS: This is a 58-year-old man, past medical history includes schizoaffective disorder, lives at [place], who was last seen by Dr. Chavira in July 2018 accompanied by his communication specialist secondary to concern for seizures versus syncope at that time. It was discussed at that point that he frequent misses his medications and takes extra to make up for them and there was concern that he is overtaking his medications and that symptomatology was secondary to withdrawing from his Clozaril. An EEG was performed at that time and was normal except for a single left midtemporal spike. He was not started on any antiepileptic medications at that time. Today, there was a witnessed syncopal episode, unclear whether associated with generalized movement disorder suggest seizure. He was brought to the emergency room and EEG was performed indicating epileptiform ictal discharges on the right consistent with epilepsy. The patient was seen in conjunction with Dr. Chavira in the emergency room. The was continuing to have focal seizures, was awake, able to communicate, however, having left facial twitching as well as arm twitching. He was given 2 mg of Ativan and afterwards heavily sedated, however, focal seizures were controlled. The remainder of the history was difficult to obtain from the patient status post administration of medication. PAST MEDICAL HISTORY: Includes amnesia; urge incontinence; schizoaffective disorder, depressive type. MEDICATIONS: From Neurology visit: 1. Antivert 12.5 mg 3 times a day. 2. Cogentin 1 mg daily. 3. Clozapine 100 mg in the morning and 300 mg in the evening. 4. Zofran 4 mg twice daily as needed for nausea. ALLERGIES: No known drug allergies. SOCIAL HISTORY: Resident at [place]. No alcohol. Former tobacco. REVIEW OF SYSTEMS: Unable to obtain from the patient secondary to sedation. PHYSICAL EXAMINATION GENERAL: When seen by this author, left facial twitching, twitching of left arm. He was able to respond to questions, although slow. VITAL SIGNS: In the emergency room, 141/91, heart rate is 89, respiratory rate 17, 96% on room air, T-max is 98 Fahrenheit. HEENT: His oropharynx is clear. Dry mucous membranes. Sclerae anicteric. LUNGS: Clear. HEART: He has regular rate and rhythm. ABDOMEN: Soft. He had no drift. NEUROLOGIC: Orientation not assessed after receive of Ativan. DIAGNOSTIC STUDIES/LAB DATA: Labs reviewed, notable for white blood cell count of 7.2, hemoglobin 16.7, platelets 183. BUN 11, creatinine 0.97. Troponin I is 0.00 on 2 consecutive checks. Toxicology is negative. Data reviewed. EEG notable for ictal discharges on the right consistent with epilepsy. Recent brain MRI on 09/13/18, limited study, mild diffuse involutional change. ASSESSMENT AND PLAN: This 58-year-old man presenting with focal seizure activity. 1. Seizure disorder. Given Ativan and loaded with Depakote in the emergency room. We will continue Depakote 500 mg twice daily. Given the patient's increased lethargy in the setting of Ativan, he will receive Depakote IV, can transition to oral when adequately alert. Ativan for sustained seizures or multiple sequential seizures. Neurology graciously following. Holding clonazepam at this time. 2. Schizoaffective disorder. Continue Cogentin. 3. DVT prophylaxis. Polly. [id number]/[facility] #: [id number] MTDD
[2018-10-10] MEDS: Enoxaparin(*) 40 MG/0.4 ML SYR SUBCUT SCH (17:26)
[2018-10-10] MEDS ORDERED: Divalproex ER TAB(*) 500 MG PO SCH (21:00)
[2018-10-10] MEDS: Valproic Acid IV(*) 500 MG in NS 0.9% 100 ML* 100 ML IVPB SCH (21:04)
[2018-10-11] MEDS ORDERED: CloZAPine TAB* 100 MG TAB PO SCH (09:00)
[2018-10-11] MEDS: Valproic Acid IV(*) 500 MG in NS 0.9% 100 ML* 100 ML IVPB SCH ×2 (10:42→21:47)
[2018-10-11] MEDS: Benztropine TAB* 1 MG PO SCH (10:46)
[2018-10-11 11:36] LABS: ABS Basophils 0 10^3/ul (0-0.2); ABS Eosinophils 0 10^3/ul (0-0.6); ABS Lymphocytes 0.6 10^3/ul (1.0-4.8); ABS Monocytes 0.9 10^3/ul (0-0.8); ABS Neutrophils 9.8 10^3/ul (1.5-7.7); ABS Nucleated RBC 0 10^3/ul; Eosinophil % 0 %; Hematocrit 46 % (42-52); Hemoglobin 15.3 g/dl (14.0-18.0); Lymphocyte % 5.3 %; Mean Corpuscular HGB Conc 33 g/dl (31-36); Mean Corpuscular Hemoglobin 31 pg (27-31); Mean Corpuscular Volume 92 fL (80-94); Mean Platelet Volume 8.5 fL (7.4-10.4); Nucleated Red Blood Cells % 0.1; Platelet Count 184 10^3/ul (150-450); Red Cell Distribution Width 15 % (10.5-15); White Blood Count 11.4 10^3/ul (3.5-10.8)
[2018-10-11 11:45] LABS: INR 1.06 (0.77-1.02)
[2018-10-11 11:54] LABS: Albumin 3.4 g/dL (3.2-5.2); Albumin/Globulin Ratio 1.5 (1-3); BUN/Creatinine Ratio 32.6 (8-20); Calcium 8.6 mg/dL (8.6-10.3); EGFR African American 101.9 (>60); EGFR Non-African American 84.2 (>60); Globulin 2.2 g/dL (2-4); Magnesium 1.9 mg/dL (1.9-2.7); Phosphorus 1.8 mg/dL (2.5-5.0); Potassium 4.3 mmol/L (3.5-5.0); Total Bilirubin 0.7 mg/dL (0.2-1.0); Total Protein 5.6 g/dL (6.4-8.9)
--- NOTE | 2018-10-11 14:19 | PN ---
Subjective Date of Service: 10/11/18 Interval History: Pt seen and examined. Reported by nursing staff to have vomited black tarry/ coffee-ground emesis. D/W Dr. Wellington who mentioned he is scheduled for EGD in AM. Meds and labs reviewed. CC: N/A ROS: Pt was asleep and uncooperative. When awoken, he is arousable but goes back to sleep and does not want to participate. PHYSICAL EXAM: GEN APPEARANCE: Asleep, arousable, not in acute distress HEENT: NC/AT, PERRLA, moist oral mucosa, (-) throat erythema NECK: Soft, supple, (-) cervical LAD, (-)JVD HEART: S1S2 WNL, RRR, No MRG CHEST: CTA, BL, GAE, No W/R/R ABD: Soft, ND/NT, NABS 4x Q EXT: No C/C/E SKIN: Warm to touch PSYCH: No active psychosis, hallucinations, depression, SI/HI Objective Active Medications: Acetaminophen (Tylenol Tab*) 650 mg PO Q4H PRN PRN Reason: FEVER/PAIN Benztropine Mesylate (Cogentin Tab*) 2 mg PO DAILY [facility] Last Admin: 10/11/18 10:46 Dose: 2 mg Valproic Acid 500 mg/ Sodium (Chloride) 105 mls @ 210 mls/hr IVPB Q12HR [facility] Last Admin: 10/11/18 10:42 Dose: 210 mls/hr Ondansetron HCl (Zofran Inj*) 4 mg IV Q4H PRN PRN Reason: NAUSEA/VOMITING Last Admin: 10/11/18 01:46 Dose: 4 mg Vital Signs - 8 hr 10/11/18 10/11/18 07:23 11:23 Temperature 97.8 F 98.7 F Pulse Rate 102 103 Respiratory 20 20 Rate Blood Pressure 98/62 122/62 (mmHg) O2 Sat by Pulse 98 100 Oximetry Oxygen Devices in Use Now: None Result Diagrams: 10/11/18 11:26 10/11/18 11:26 Assess/Plan/Problems-Billing Assessment: - Patient Problems (1) Coffee ground emesis Current Visit: Yes Status: Acute Code(s): K92.0 - HEMATEMESIS SNOMED Code( s): 50050836 Comment: -Appreciate Dr. Wilkes input and will await result of EGD planned in AM -NPO at midnight (2) Seizure disorder Current Visit: Yes Status: Acute Code(s): G40.909 - EPILEPSY, UNSP, NOT INTRACTABLE, WITHOUT STATUS EPILEPTICUS SNOMED Code(s): 582280928 Comment: -Appreciate Dr. Mireles input -Likely focal in onset? -Continue Valproic acid -EEG: Yvan and slow wave discharges in the right hemisphere -Brain CT: NAD (3) Schizoaffective disorder Current Visit: Yes Status: Acute Code(s): F25.9 - SCHIZOAFFECTIVE DISORDER, UNSPECIFIED SNOMED Code(s): 97666099 Comment: -Clozapine held -Continue watchful waiting (4) DVT prophylaxis Current Visit: Yes Status: Acute Code(s): RPV3801 - SNOMED Code(s): 895200957 Comment: -D/C Lovenox given concern for possible GIB; placed pt on SCDs Status and Disposition: -As above
[2018-10-11] MEDS: Enoxaparin(*) 40 MG/0.4 ML SYR SUBCUT SCH (14:20)
--- NOTE | 2018-10-11 19:06 | PN ---
NEUROLOGY FOLLOWUP NOTE: DATE OF FOLLOWUP: 10/11/18 LOCATION: He is an inpatient, room 436. HOSPITALIST: Dr. Blakely. INTERVAL HISTORY: Since yesterday, Simeon vomited some black tarry material. According to Dr. Blakely' note, he is going to be seen by Gastroenterology. His Lovenox was stopped. There is no description in the records of any seizures that I could find. MEDICATIONS: Reviewed and he is on: 1. Valproic acid 500 mg IV q.12 hours. There was an oral dose written for, but it looks like he is getting IV only. 2. Lovenox was stopped yesterday. 3. He has been restarted on clozapine 50 mg in the morning only starting tomorrow morning. 4. He remains on Cogentin 2 mg p.o. per day. PHYSICAL EXAMINATION: He is lethargic. Temperature is 98.7, blood pressure 122 /62, pulse about 100. Respiratory rate is 20 and oxygen saturation is 100% on room air. Neurological Exam: He is lethargic. I can get him to arouse and weakly open his eyes, but he drifts off again. He answers a couple of questions to say "fine." Other than that, I cannot get much out of him. There is no focal clonic twitching of the face or left arm as there was yesterday. IMPRESSION AND PLAN: Impression is that seizure is apparently under control. It does not look like he is getting anything sedating other than IV Depakote. Hopefully, that will settle down and resolve. He has developed some, what sounds to be, upper gastrointestinal bleeding and that is being addressed. Dr. Jefferson will be coming on service this evening and I will sign Simeon out to him. [id number]/[facility] #: [id number] [facility]
--- NOTE | 2018-10-11 19:58 | CONS ---
GASTROENTEROLOGY CONSULT: DATE OF CONSULT: 10/11/18 CONSULTING PHYSICIANS: Ector Blakely, Brina Evangelista. REASON FOR CONSULT: Coffee-ground emesis in a mentally impaired man with schizoaffective disorder. He spends much time horizontal. HISTORY: His mother was contacted by a phone and told me that for a month or two, he has been vomiting during his visits to her home. He lives a few blocks from her in [place]. He used to walk over 2 or 3 times a week and now he is less mobile and more debilitated and takes taxi. At any rate, he often eats there, but does not eat much despite her exhortations. He frequently goes into the bathroom and vomits. He would not talk about it and she has not seen what is produced. She does not believe this was going on before . The history is rather vague, though she is certainly concerned about his diet and nutrition. There is no other history of gastrointestinal problems. He is not on any special diet. PAST MEDICAL HISTORY: 1. Schizoaffective disorder. 2. Seizures. 3. Depression. 4. Laparoscopic cholecystectomy. MEDICATIONS: As an outpatient, he has prescribed Cogentin, clozapine and some Zofran, though frequency of his taking it is unknown. ALLERGIES: None known to drugs. SOCIAL HISTORY: He lives in [place] on [address] in a supervised apartment. [employer] is his supervising agency. His mother lives 4 to 5 blocks away at [facility]. REVIEW OF SYSTEMS: No visible surgical scars. His mother does not believe he is drinking alcohol. Dr. Evangelista's records are not available at this time. Attempt at a colonoscopy in 2011 was unsuccessful as he did not take the prep. There was a time he was complaining of pain around 2010 and 2011 and of that and final conclusion is unknown. His mother does not recall that. He has never been anemic. PHYSICAL EXAM: He is a mentally impaired man, lying in bed seeming to prefer right side down, acknowledging that he hears me, but making no other statement. HEENT exam shows no icterus. Mucous membranes are hypertrophic. He has no adenopathy. Lungs are clear with limited auscultation as he does not cooperate. Heart sounds are regular. The abdomen is soft, nontender. Rectal: Deferred. Extremities show no edema. DIAGNOSTIC STUDIES/LAB DATA: Hemoglobin above 15 consistently, though his BUN which had been 11 went up to 30 without explanation. HOSPITAL COURSE: Since the emesis last night, he has not had any further emesis here in the hospital. He has eaten a small amount without vomiting it up. He has not had any stool here in the hospital. IMPRESSION: A man with schizoaffective disorder and felt to have seizures with poor compliance with his medications. He has been observed to vomit. As this was present as an outpatient, this would be a good opportunity to learn more about it as avoiding vomiting clearly necessary to treat his seizures. EGD will be planned in the morning. His mother gives consent. [id number]/[facility] #: [id number] MANDY
[2018-10-12 06:19] LABS: ABS Basophils 0.1 10^3/ul (0-0.2); ABS Eosinophils 0 10^3/ul (0-0.6); ABS Lymphocytes 0.7 10^3/ul (1.0-4.8); ABS Neutrophils 13.2 10^3/ul (1.5-7.7); ABS Nucleated RBC 0 10^3/ul; Eosinophil % 0 %; Hematocrit 41 % (42-52); Hemoglobin 13.7 g/dl (14.0-18.0); Lymphocyte % 4.4 %; Mean Corpuscular HGB Conc 33 g/dl (31-36); Mean Corpuscular Hemoglobin 31 pg (27-31); Mean Corpuscular Volume 92 fL (80-94); Mean Platelet Volume 9.3 fL (7.4-10.4); Nucleated Red Blood Cells % 0; Platelet Count 231 10^3/ul (150-450); Red Blood Count 4.46 10^6/ul (4.00-5.40); Red Cell Distribution Width 14 % (10.5-15); White Blood Count 14.8 10^3/ul (3.5-10.8)
[2018-10-12 06:34] LABS: Albumin 3.4 g/dL (3.2-5.2); Albumin/Globulin Ratio 1.7 (1-3); BUN/Creatinine Ratio 65.9 (8-20); Calcium 8.9 mg/dL (8.6-10.3); EGFR African American 103.2 (>60); EGFR Non-African American 85.3 (>60); Magnesium 2.1 mg/dL (1.9-2.7); Potassium 3.7 mmol/L (3.5-5.0); Total Bilirubin 0.5 mg/dL (0.2-1.0); Total Protein 5.4 g/dL (6.4-8.9)
[2018-10-12] MEDS ORDERED: NS 0.9% 1000 ML** 1,000 ML IV ONE (07:54)
--- NOTE | 2018-10-12 07:54 | PN ---
Hospitalist Progress Note Date of Service: 10/12/18 - ' Rapid response team called by Lizett a few minutes ago. Reassesed pt and found pt to be lethargic. Per RN report, no BP could be heard. Repeated BP in person and found the cuff being dislodged from pt's arm as one inflates. Repeated BP measurement w/new cuff and w/BP of 100/60. Pt with reactive, but sluggish pupils. Per RN, last med was given at 9PM last night (Valproic acid). Pt likely mildly hypotensive due to poor PO intake and sedation. Continue 1L fluid bolus already ordered and will place pt on maintenance of 100 cc/hr of NS x 4L and/or until reassessed. q1H VS monitoring x 4 hours. Touched base w/CAT call team and Lizett. Full note to be written later.
[2018-10-12] MEDS ORDERED: Potassium Phosphate IV* 15 MMOLE in NS 0.9% 250 ML* 250 ML IVPB ONE (08:30)
[2018-10-12] MEDS: NS 0.9% 1000 ML** 1,000 ML IV SCH ×2 (08:44→22:38)
[2018-10-12] MEDS: Valproic Acid IV(*) 500 MG in NS 0.9% 100 ML* 100 ML IVPB SCH ×2 (08:55→21:55)
[2018-10-12] MEDS ORDERED: Midazolam* 1 MG/ML 10 ML VIAL (10 MG) ONE (14:04)
[2018-10-12] MEDS ORDERED: fentaNYL* 50 MCG/ML 2 ML VIAL (100 MCG VIAL) ONE (14:04)
[2018-10-12] MEDS: Benztropine TAB* 1 MG PO SCH (15:00)
[2018-10-12] MEDS: CloZAPine TAB* 25 MG TAB PO SCH (15:00)
--- NOTE | 2018-10-12 15:37 | PRO ---
DATE: 10/12/18 - ROOM #450 REFERRING PHYSICIAN: Brina Evangelista* PROCEDURE: Upper gastrointestinal endoscopy through to distal duodenum INDICATION: This 58-year-old man had some coffee-ground emesis the evening of admission. He has not had any more vomiting in the last 36 hours, but he has been hypotensive periodically and thus was transferred to the ICU for monitoring to facilitate this procedure. It is also noted his hemoglobin fell from upper 15s to 16 down to 13.7. His BUN went from 11 to 30 to 60. There was no further emesis and no stool. This was unexplained and unanticipated. There is no documented history of prior acid dyspeptic disease. He cannot give any meaningful history and his mother, his healthcare proxy, is not familiar with details and is a poor historian herself, although she is engaging and tries hard. PROCEDURE: He is positioned left side down (right side down seems to be his preferred position) in the ICU and 1 mg Versed given with cessation of some restless movements. He was stable from the vital signs point of view. EGD: Larynx - symmetric, limited views with good air movement. Esophagus - easily entered and the mucosa is normal until about 23 and then some scattered white exudate is seen and it becomes confluent and there is a severe ulcer from about 5 o'clock to 9 o'clock extending from 30 cm down to 35. It has a clean white base with no bleeding or clot. There is no obvious mass , but the ulcer is enormous and moderately deep. There is more irritation and swelling of the mucosa on the opposite wall. Stomach - a large hiatal hernia is present with no Darrin erosions and no clot in it. Gastric body and antrum appear normal. Duodenum - the pylorus, bulb, and second through fourth portions appeared normal. IMPRESSION: 1. Large hiatal hernia. 2. Severe erosive gastroesophageal reflux disease with an extensive ulceration - this is clearly consistent with being the source of the coffee-ground emesis. Whether or not it would bleed enough to serve as a nitrogen source to raise the BUN to 60 is difficult to say. There is no active bleeding now and it would be an unusual situation in the face of rehydration, but no other source is evident and he has not had melena. Would rescope in 6 weeks to confirm improving trend [id number]/[facility] #: [id number] [facility]
[2018-10-12] MEDS: Pantoprazole* 80 mg IN NS 80 MG/250 ML BAG IVPB SCH (16:20)
--- NOTE | 2018-10-12 17:24 | PN ---
Subjective Date of Service: 10/12/18 Interval History: Pt seen and examined. CAT call called early in AM due to inability to obtain BP. On reassessment, pt has a pulse and repeated BP in person w/correctly size cuff, pts BP =100/60. Meds and labs reviewed. Please see discussion below CC: Hypotension ROS: Denied BLACK/dizziness, F/C, N/V, CP, SOB, increased cough, sputum production , abd pain, diarrhea, constipation, dysuria, myalgias, arthralgias, throat pain , and new skin lesions. The rest of the 14 point ROS are unremarkable. PHYSICAL EXAM: GEN APPEARANCE: Awake, not in acute distress HEENT: NC/AT, PERRLA, moist oral mucosa, (-) throat erythema NECK: Soft, supple, (-) cervical LAD, (-)JVD HEART: S1S2 WNL, RRR, No MRG CHEST: CTA, BL, GAE, No W/R/R ABD: Soft, ND/NT, NABS 4x Q EXT: No C/C/E SKIN: Warm to touch PSYCH: No active psychosis, hallucinations, depression, SI/HI Objective Active Medications: Acetaminophen (Tylenol Tab*) 650 mg PO Q4H PRN PRN Reason: FEVER/PAIN Benztropine Mesylate (Cogentin Tab*) 2 mg PO DAILY [facility] Last Admin: 10/12/18 15:00 Dose: Not Given Clozapine (Clozapine Tab*) 50 mg PO DAILY [facility] Last Admin: 10/12/18 15:00 Dose: Not Given Valproic Acid 500 mg/ Sodium (Chloride) 105 mls @ 210 mls/hr IVPB Q12HR [facility] Last Admin: 10/12/18 08:55 Dose: 210 mls/hr Sodium Chloride (Ns 0.9% 1000 Ml) 1,000 mls @ 100 mls/hr IV PER RATE [facility] Stop: 10/15/18 17:59 Last Admin: 10/12/18 08:44 Dose: 100 mls/hr Pantoprazole Sodium (Protonix Iv Bag*) 80 mg in 250 mls @ 25 mls/hr IVPB Q10H [facility] Last Admin: 10/12/18 16:20 Dose: 25 mls/hr Ondansetron HCl (Zofran Inj*) 4 mg IV Q4H PRN PRN Reason: NAUSEA/VOMITING Last Admin: 10/11/18 01:46 Dose: 4 mg Vital Signs - 8 hr 10/12/18 10/12/18 10/12/18 09:31 10:05 11:07 Temperature 97.6 F 98.9 F Pulse Rate 99 95 Respiratory 18 15 Rate Blood Pressure 100/53 102/74 (mmHg) O2 Sat by Pulse 99 100 Oximetry 10/12/18 10/12/18 10/12/18 11:09 11:15 11:16 Temperature Pulse Rate 99 98 Respiratory 13 17 13 Rate Blood Pressure 75/63 (mmHg) O2 Sat by Pulse 99 100 Oximetry 10/12/18 10/12/18 10/12/18 11:17 11:20 11:30 Temperature 98.4 F Pulse Rate 97 100 96 Respiratory 9 17 16 Rate Blood Pressure 86/68 102/74 99/60 (mmHg) O2 Sat by Pulse 100 98 100 Oximetry 10/12/18 10/12/18 10/12/18 11:45 11:47 12:00 Temperature Pulse Rate 95 97 94 Respiratory 16 17 14 Rate Blood Pressure 90/62 102/66 (mmHg) O2 Sat by Pulse 100 100 99 Oximetry 10/12/18 10/12/18 10/12/18 12:02 12:15 12:16 Temperature Pulse Rate 94 96 96 Respiratory 15 17 21 Rate Blood Pressure 98/64 (mmHg) O2 Sat by Pulse 99 100 100 Oximetry 10/12/18 10/12/18 10/12/18 12:30 12:45 12:46 Temperature Pulse Rate 99 96 96 Respiratory 19 Rate Blood Pressure 83/63 (mmHg) O2 Sat by Pulse 100 100 100 Oximetry 10/12/18 10/12/18 10/12/18 13:00 13:01 13:12 Temperature Pulse Rate 93 93 94 Respiratory 17 16 Rate Blood Pressure 91/72 96/56 (mmHg) O2 Sat by Pulse 100 100 100 Oximetry 10/12/18 10/12/18 10/12/18 13:15 13:16 13:30 Temperature Pulse Rate 94 94 94 Respiratory 16 16 10 Rate Blood Pressure 90/55 82/51 (mmHg) O2 Sat by Pulse 100 100 100 Oximetry 10/12/18 10/12/18 10/12/18 13:31 13:45 13:46 Temperature Pulse Rate 95 94 94 Respiratory 17 17 Rate Blood Pressure 91/50 (mmHg) O2 Sat by Pulse 100 98 99 Oximetry 10/12/18 10/12/18 10/12/18 14:00 14:01 14:16 Temperature Pulse Rate 92 92 96 Respiratory 19 Rate Blood Pressure 86/53 (mmHg) O2 Sat by Pulse 99 98 100 Oximetry 10/12/18 10/12/18 10/12/18 14:31 14:42 14:45 Temperature Pulse Rate 96 98 94 Respiratory 20 18 24 Rate Blood Pressure 121/75 113/78 (mmHg) O2 Sat by Pulse 100 100 100 Oximetry 10/12/18 10/12/18 10/12/18 14:46 15:00 15:01 Temperature Pulse Rate 95 92 92 Respiratory 21 18 11 Rate Blood Pressure 114/72 (mmHg) O2 Sat by Pulse 100 100 100 Oximetry 10/12/18 10/12/18 10/12/18 15:15 15:16 15:30 Temperature Pulse Rate 94 94 93 Respiratory 16 13 15 Rate Blood Pressure 112/74 109/73 (mmHg) O2 Sat by Pulse 100 100 100 Oximetry 10/12/18 10/12/18 10/12/18 15:31 15:45 15:46 Temperature Pulse Rate 93 91 91 Respiratory 15 18 18 Rate Blood Pressure 101/78 (mmHg) O2 Sat by Pulse 100 100 100 Oximetry 10/12/18 10/12/18 10/12/18 16:00 16:01 16:15 Temperature Pulse Rate 92 94 96 Respiratory 22 21 26 Rate Blood Pressure 101/72 (mmHg) O2 Sat by Pulse 100 100 99 Oximetry 10/12/18 10/12/18 10/12/18 16:30 16:31 16:45 Temperature Pulse Rate 95 96 96 Respiratory 15 13 12 Rate Blood Pressure 113/77 (mmHg) O2 Sat by Pulse 100 100 97 Oximetry 10/12/18 17:00 Temperature Pulse Rate 95 Respiratory 15 Rate Blood Pressure 103/74 (mmHg) O2 Sat by Pulse 100 Oximetry Oxygen Devices in Use Now: None Result Diagrams: 10/12/18 05:37 10/12/18 05:37 Microbiology and Other Data: Microbiology 10/12/18 14:00 Stool Occult Blood (SONNY) - Final Stool Assess/Plan/Problems-Billing Assessment: - Patient Problems (1) Hypotension Current Visit: Yes Status: Acute Comment: -Likely due to GIB and poor PO intake -Increasing BUN as well as reports of coffee ground emesis highly suspicious for active bleed -Pt scheduled for EGD in AM since yesterday and re-discussed case w/Dr. Wellington -EGD (10/12): Large hiatal hernia; severe erosive GERD w/extensive ulceration; likely source of GIB, however, no active bleeding at time of procedure -Per Dr. Wellington pt also has tendency to lie on his right side after taking his pills; this unfortunately increases chances of pill causing erosive esophagitis ; discussed life style modifications and lie more to the left -Will place pt on Pantoprazole gtt -D/W Dr. Wellington; appreciate his input and expertise -For repeat cbc @2200; will S/O to hospitalist colleague to check (2) Seizure disorder Current Visit: Yes Status: Acute Code(s): G40.909 - EPILEPSY, UNSP, NOT INTRACTABLE, WITHOUT STATUS EPILEPTICUS SNOMED Code(s): 257488457 Comment: -Appreciate Dr. Mireles input -Likely focal in onset? -Continue Valproic acid -EEG: Yvan and slow wave discharges in the right hemisphere -Brain CT: NAD (3) Schizoaffective disorder Current Visit: Yes Status: Acute Code(s): F25.9 - SCHIZOAFFECTIVE DISORDER, UNSPECIFIED SNOMED Code(s): 88546122 Comment: -Can begin halved dosed Clozapine as discussed w/Dr. Marlow yesterday -Continue watchful waiting (4) DVT prophylaxis Current Visit: Yes Status: Acute Code(s): XXB4845 - SNOMED Code(s): 053758528 Comment: -Continue SCDs Status and Disposition: -As above
[2018-10-12 23:07] LABS: Hematocrit 32 % (42-52); Hemoglobin 10.9 g/dl (14.0-18.0); Mean Corpuscular HGB Conc 34 g/dl (31-36); Mean Corpuscular Hemoglobin 31 pg (27-31); Mean Corpuscular Volume 92 fL (80-94); Mean Platelet Volume 8.5 fL (7.4-10.4); Platelet Count 168 10^3/ul (150-450); Red Blood Count 3.52 10^6/ul (4.00-5.40); Red Cell Distribution Width 15 % (10.5-15); White Blood Count 8.3 10^3/ul (3.5-10.8)
[2018-10-13] MEDS: Pantoprazole* 80 mg IN NS 80 MG/250 ML BAG IVPB SCH ×2 (02:14→12:48)
[2018-10-13 05:59] LABS: ABS Basophils 0 10^3/ul (0-0.2); ABS Eosinophils 0 10^3/ul (0-0.6); ABS Lymphocytes 0.5 10^3/ul (1.0-4.8); ABS Monocytes 0.4 10^3/ul (0-0.8); ABS Neutrophils 5.4 10^3/ul (1.5-7.7); ABS Nucleated RBC 0 10^3/ul; Eosinophil % 0.2 %; Hematocrit 32 % (42-52); Hemoglobin 10.9 g/dl (14.0-18.0); Lymphocyte % 7.8 %; Mean Corpuscular HGB Conc 35 g/dl (31-36); Mean Corpuscular Hemoglobin 32 pg (27-31); Mean Corpuscular Volume 92 fL (80-94); Mean Platelet Volume 8.6 fL (7.4-10.4); Nucleated Red Blood Cells % 0; Platelet Count 161 10^3/ul (150-450); Red Blood Count 3.43 10^6/ul (4.00-5.40); Red Cell Distribution Width 14 % (10.5-15); White Blood Count 6.3 10^3/ul (3.5-10.8)
[2018-10-13 06:21] LABS: Albumin 2.6 g/dL (3.2-5.2); Albumin/Globulin Ratio 1.6 (1-3); BUN/Creatinine Ratio 36.4 (8-20); Calcium 6.8 mg/dL (8.6-10.3); EGFR African American 107.3 (>60); EGFR Non-African American 88.6 (>60); Globulin 1.6 g/dL (2-4); Magnesium 1.7 mg/dL (1.9-2.7); Phosphorus 2.4 mg/dL (2.5-5.0); Potassium 3.8 mmol/L (3.5-5.0); Total Bilirubin 0.4 mg/dL (0.2-1.0); Total Protein 4.2 g/dL (6.4-8.9)
[2018-10-13] MEDS: Benztropine TAB* 1 MG PO SCH (09:24)
[2018-10-13] MEDS: CloZAPine TAB* 25 MG TAB PO SCH (09:25)
[2018-10-13] MEDS: Valproic Acid IV(*) 500 MG in NS 0.9% 100 ML* 100 ML IVPB SCH ×2 (09:30→21:33)
[2018-10-13] MEDS ORDERED: CALCIUM GLUCONATE IV ONE (09:30)
[2018-10-13] MEDS ORDERED: Magnesium Sulfate IV* 3 GM in NS 0.9% 100 ML* 100 ML IVPB ONE (09:30)
[2018-10-13] MEDS ORDERED: Potassium Phosphate IV* 10 MMOLE in NS 0.9% 250 ML* 250 ML IVPB ONE (09:30)
[2018-10-13] MEDS ORDERED: NS 0.9% IV ONE (09:30)
[2018-10-13] MEDS ORDERED: D5W 250 ML BAG* 250 ML IV SCH (10:00)
--- NOTE | 2018-10-13 19:54 | PN ---
Subjective Date of Service: 10/13/18 Interval History: Pt seen and examined this AM and found pt to still be lethargic. Touched base w /Dr. Jefferson who mentioned to order EEG and ask RN to call once done. RN informed. Later during the day, however, pt became more interactive, woke up, and was hungry. Meds and labs reviewed. CC: N/A ROS: Denied BLACK/dizziness, F/C, N/V, CP, SOB, increased cough, sputum production , abd pain, diarrhea, constipation, dysuria, myalgias, arthralgias, throat pain , and new skin lesions. The rest of the 14 point ROS are unremarkable. PHYSICAL EXAM: GEN APPEARANCE: Awake, not in acute distress HEENT: NC/AT, PERRLA, moist oral mucosa, (-) throat erythema NECK: Soft, supple, (-) cervical LAD, (-)JVD HEART: S1S2 WNL, RRR, No MRG CHEST: CTA, BL, GAE, No W/R/R ABD: Soft, ND/NT, NABS 4x Q EXT: No C/C/E SKIN: Warm to touch PSYCH: No active psychosis, hallucinations, depression, SI/HI Objective Active Medications: Acetaminophen (Tylenol Tab*) 650 mg PO Q4H PRN PRN Reason: FEVER/PAIN Benztropine Mesylate (Cogentin Tab*) 2 mg PO DAILY [facility] Last Admin: 10/13/18 09:24 Dose: Not Given Clozapine (Clozapine Tab*) 50 mg PO DAILY [facility] Last Admin: 10/13/18 09:25 Dose: Not Given Valproic Acid 500 mg/ Sodium (Chloride) 105 mls @ 210 mls/hr IVPB Q12HR [facility] Last Admin: 10/13/18 09:30 Dose: 210 mls/hr Sodium Chloride (Ns 0.9% 1000 Ml) 1,000 mls @ 100 mls/hr IV PER RATE [facility] Stop: 10/15/18 17:59 Last Admin: 10/12/18 22:38 Dose: 100 mls/hr Dextrose (D5w 250 Ml Bag*) 250 mls @ 75 mls/hr IV PER RATE [facility] Stop: 10/14/18 13:19 Last Admin: 10/13/18 09:30 Dose: 75 mls/hr Ondansetron HCl (Zofran Inj*) 4 mg IV Q4H PRN PRN Reason: NAUSEA/VOMITING Last Admin: 10/11/18 01:46 Dose: 4 mg Pantoprazole Sodium (Protonix Iv*) 40 mg IV BID [facility] Vital Signs - 8 hr 10/13/18 10/13/18 10/13/18 12:00 12:01 12:16 Temperature Pulse Rate 80 80 80 Respiratory 17 13 17 Rate Blood Pressure 98/61 (mmHg) O2 Sat by Pulse 98 98 98 Oximetry 10/13/18 10/13/18 10/13/18 12:25 12:30 12:31 Temperature 97.8 F Pulse Rate 79 80 Respiratory 13 16 Rate Blood Pressure 84/56 (mmHg) O2 Sat by Pulse 98 98 Oximetry 10/13/18 10/13/18 10/13/18 12:32 12:46 13:00 Temperature Pulse Rate 79 80 80 Respiratory 14 12 15 Rate Blood Pressure 100/62 106/65 (mmHg) O2 Sat by Pulse 99 99 100 Oximetry 10/13/18 10/13/18 10/13/18 13:01 13:16 13:30 Temperature Pulse Rate 80 84 81 Respiratory 14 15 18 Rate Blood Pressure 114/69 (mmHg) O2 Sat by Pulse 100 99 99 Oximetry 10/13/18 10/13/18 10/13/18 13:31 13:46 14:00 Temperature Pulse Rate 81 84 86 Respiratory 17 18 31 Rate Blood Pressure 126/78 (mmHg) O2 Sat by Pulse 99 99 98 Oximetry 10/13/18 10/13/18 10/13/18 14:01 14:16 14:31 Temperature Pulse Rate 85 89 85 Respiratory 17 17 24 Rate Blood Pressure (mmHg) O2 Sat by Pulse 99 99 99 Oximetry 10/13/18 10/13/18 10/13/18 14:46 15:00 15:03 Temperature Pulse Rate 87 84 82 Respiratory 21 23 25 Rate Blood Pressure 117/71 (mmHg) O2 Sat by Pulse 97 97 98 Oximetry 10/13/18 10/13/18 10/13/18 15:15 15:30 15:31 Temperature Pulse Rate 83 85 84 Respiratory 18 16 16 Rate Blood Pressure 104/68 (mmHg) O2 Sat by Pulse 99 96 100 Oximetry 10/13/18 10/13/18 10/13/18 15:45 15:48 16:00 Temperature 97.4 F Pulse Rate 82 81 Respiratory 26 19 Rate Blood Pressure 111/69 (mmHg) O2 Sat by Pulse 98 99 Oximetry 10/13/18 10/13/18 10/13/18 16:15 16:30 16:45 Temperature Pulse Rate 83 86 82 Respiratory 22 9 16 Rate Blood Pressure 132/70 (mmHg) O2 Sat by Pulse 98 99 98 Oximetry 10/13/18 10/13/18 10/13/18 17:00 17:15 17:30 Temperature Pulse Rate 86 87 85 Respiratory 9 17 17 Rate Blood Pressure 125/89 118/68 (mmHg) O2 Sat by Pulse 98 100 99 Oximetry 10/13/18 10/13/18 17:45 18:00 Temperature Pulse Rate 86 86 Respiratory 12 15 Rate Blood Pressure (mmHg) O2 Sat by Pulse 100 98 Oximetry Oxygen Devices in Use Now: None Result Diagrams: 10/13/18 05:35 10/13/18 14:54 Microbiology and Other Data: Microbiology 10/12/18 14:00 Stool Occult Blood (SONNY) - Final Stool Assess/Plan/Problems-Billing Assessment: - Patient Problems (1) Hypotension Current Visit: Yes Status: Acute Comment: -Likely due to GIB and poor PO intake -Increasing BUN as well as reports of coffee ground emesis highly suspicious for active bleed -EGD (10/12): Large hiatal hernia; severe erosive GERD w/extensive ulceration; likely source of GIB, however, no active bleeding at time of procedure -Per Dr. Wellington pt also has tendency to lie on his right side after taking his pills; this unfortunately increases chances of pill causing erosive esophagitis ; discussed life style modifications and lie more to the left -D/C Pantoprazole gtt and place on IV BID due to poor IV access -D/W Dr. Wellington; appreciate his input and expertise (2) Seizure disorder Current Visit: Yes Status: Acute Code(s): G40.909 - EPILEPSY, UNSP, NOT INTRACTABLE, WITHOUT STATUS EPILEPTICUS SNOMED Code(s): 683987449 Comment: -Appreciate Dr. Portillo input today -For repeat EEG, however, pt more awake now later during the day -Likely focal in onset? -Continue Valproic acid -EEG: Yvan and slow wave discharges in the right hemisphere -Brain CT: NAD (3) Schizoaffective disorder Current Visit: Yes Status: Acute Code(s): F25.9 - SCHIZOAFFECTIVE DISORDER, UNSPECIFIED SNOMED Code(s): 18207954 Comment: -Can begin halved dosed Clozapine as discussed w/Dr. Marlow yesterday -Continue watchful waiting (4) DVT prophylaxis Current Visit: Yes Status: Acute Code(s): [id number] - SNOMED Code(s): 969660139 Comment: -Continue SCDs Status and Disposition: -Transfer to
[2018-10-13] MEDS: NS 0.9% 1000 ML** 1,000 ML IV SCH (21:27)
--- NOTE | 2018-10-13 21:29 | PN ---
NEUROLOGICAL FOLLOWUP NOTE: DATE OF VISIT: 10/13/18 HISTORY: Dr. Blakely asked me to evaluate today for continued lethargy and he recommended to obtain an EEG which was not done; however, since earlier today, he has become much less lethargic. He has been answering questions and interactive and the nurse who took care of him last night and the nurse who took care of him throughout today, both say that he is much better this evening than he had been previously. There are no overt seizures noted today. PHYSICAL EXAMINATION: On exam, temperature 97.4, pulse 86, respirations 15, blood pressure 118/68. He is alert and conversant, which is improved from his prior baseline. He knew his name. He can say simple sentences and he can follow nonmidline commands. He still is mildly confused. He moved all extremities with power. Chest: Clear. Cardiovascular: Regular rate and rhythm. Abdomen: Soft with positive bowel sounds. DIAGNOSTIC AND LABORATORY DATA: White count 6.3, hematocrit 32 from today. Sodium is 151 today. BUN 32, which is improved from the day before. Calcium 6.8, magnesium 1.7. His drug tox screen when came in was negative. His UA was negative. His ammonia when he came in was 47. He had a CT scan yesterday, which showed no acute intracranial pathology. ASSESSMENT AND PLAN: Justen has had altered mental status and lethargy but is doing better now. It is unclear the etiology of this. It would make sense to check an EEG. Thank you for sharing his case. [id number]/[facility] #: [id number] MANDY
[2018-10-13] MEDS: Pantoprazole IV* 40 MG IV SCH (21:33)
[2018-10-14 08:25] LABS: CO2 Carbon Dioxide 19 mmol/L (22-32)
[2018-10-14 08:31] LABS: BUN/Creatinine Ratio 19.7 (8-20); Blood Urea Nitrogen 14 mg/dL (6-24); EGFR African American 137.4 (>60); EGFR Non-African American 113.6 (>60); Glucose 80 mg/dL (70-100); Phosphorus 2.5 mg/dL (2.5-5.0)
[2018-10-14 08:34] LABS: Anion Gap 11 mmol/L (2-11); Chloride 118 mmol/L (101-111); Sodium 148 mmol/L (135-145)
[2018-10-14] MEDS: Benztropine TAB* 1 MG PO SCH (10:06)
[2018-10-14] MEDS: CloZAPine TAB* 25 MG TAB PO SCH (10:07)
[2018-10-14] MEDS: Pantoprazole IV* 40 MG IV SCH ×2 (10:07→22:09)
[2018-10-14] MEDS: Valproic Acid IV(*) 500 MG in NS 0.9% 100 ML* 100 ML IVPB SCH ×2 (11:12→22:09)
--- NOTE | 2018-10-14 19:25 | PN ---
Subjective Date of Service: 10/14/18 Interval History: Pt seen and examined. Meds and labs reviewed. Ordered EEG yesterday but could not be done until today CC: N/A ROS: Pt unable to reliably provide 14 point ROS PHYSICAL EXAM: GEN APPEARANCE: Asleep, arousable, not in acute distress, oriented to place only HEENT: NC/AT, PERRLA, moist oral mucosa, (-) throat erythema NECK: Soft, supple, (-) cervical LAD, (-)JVD HEART: S1S2 WNL, RRR, No MRG CHEST: CTA, BL, GAE, No W/R/R ABD: Soft, ND/NT, NABS 4x Q EXT: No C/C/E SKIN: Warm to touch PSYCH: No active psychosis, hallucinations, depression, SI/HI Objective Active Medications: Acetaminophen (Tylenol Tab*) 650 mg PO Q4H PRN PRN Reason: FEVER/PAIN Benztropine Mesylate (Cogentin Tab*) 2 mg PO DAILY [facility] Last Admin: 10/14/18 10:06 Dose: 2 mg Clozapine (Clozapine Tab*) 50 mg PO DAILY [facility] Last Admin: 10/14/18 10:07 Dose: 50 mg Valproic Acid 500 mg/ Sodium (Chloride) 105 mls @ 210 mls/hr IVPB Q12HR [facility] Last Admin: 10/14/18 11:12 Dose: 210 mls/hr Sodium Chloride (Ns 0.9% 1000 Ml) 1,000 mls @ 100 mls/hr IV PER RATE [facility] Stop: 10/15/18 17:59 Last Admin: 10/13/18 21:27 Dose: 100 mls/hr Ondansetron HCl (Zofran Inj*) 4 mg IV Q4H PRN PRN Reason: NAUSEA/VOMITING Last Admin: 10/11/18 01:46 Dose: 4 mg Pantoprazole Sodium (Protonix Iv*) 40 mg IV BID [facility] Last Admin: 10/14/18 10:07 Dose: 40 mg Vital Signs - 8 hr 10/14/18 15:13 Temperature 97.2 F Pulse Rate 88 Respiratory 16 Rate Blood Pressure 103/51 (mmHg) O2 Sat by Pulse 99 Oximetry Oxygen Devices in Use Now: None Result Diagrams: 10/13/18 05:35 10/14/18 07:49 Microbiology and Other Data: Microbiology 10/12/18 14:00 Stool Occult Blood (SONNY) - Final Stool Assess/Plan/Problems-Billing Assessment: - Patient Problems (1) Hypotension Current Visit: Yes Status: Acute Comment: -Resolved -Likely due to GIB and poor PO intake -Increasing BUN as well as reports of coffee ground emesis highly suspicious for active bleed -EGD (10/12): Large hiatal hernia; severe erosive GERD w/extensive ulceration; likely source of GIB, however, no active bleeding at time of procedure -Per Dr. Wellington pt also has tendency to lie on his right side after taking his pills; this unfortunately increases chances of pill causing erosive esophagitis ; discussed life style modifications and lie more to the left -Continue Pantoprazole IV BID due to poor IV access -D/W Dr. Wellington; appreciate his input and expertise (2) Seizure disorder Current Visit: Yes Status: Acute Code(s): G40.909 - EPILEPSY, UNSP, NOT INTRACTABLE, WITHOUT STATUS EPILEPTICUS SNOMED Code(s): 726623684 Comment: -Awaiting result of EEG, however, pt clinically more active today and more responsive and there was a concern if he was having some sublicnical seizures making him lethargic -Repeat CT of head: NAD -Likely focal in onset? -Continue Valproic acid -EEG: Yvan and slow wave discharges in the right hemisphere -Brain CT: NAD (3) Schizoaffective disorder Current Visit: Yes Status: Acute Code(s): F25.9 - SCHIZOAFFECTIVE DISORDER, UNSPECIFIED SNOMED Code(s): 76372489 Comment: -Can begin halved dosed Clozapine as discussed w/Dr. Marlow yesterday -Continue watchful waiting (4) DVT prophylaxis Current Visit: Yes Status: Acute Code(s): IQO8461 - SNOMED Code(s): 041149237 Comment: -Continue SCDs Status and Disposition: -For PT/OT eval
--- NOTE | 2018-10-14 21:42 | PN ---
PROGRESS NOTE: DATE OF SERVICE: 10/14/18 DATE OF DICTATION: 10/14/18 PATIENT OF: Dr. Blakely. HISTORY: This is a 58-year-old man seen in followup for his lethargy and encephalopathy. He is feeling better today and says nothing is wrong. MEDICATIONS: Include: 1. Cogentin 2 mg daily. 2. Clozapine 50 mg daily. 3. Zofran q.4 hours p.r.n. 4. Protonix 40 mg b.i.d. 5. Depakote 500 mg q.12 hours. PHYSICAL EXAMINATION: He was alert. He knew his name and his age, did not know the year, he knew he was at the hospital. He spoke in complete sentences and was much clear than yesterday. He followed commands consistently. Cranial nerves II through XII were intact. Fundi showed sharp, red reflex bilaterally. He moved all extremities with power. Chest: Clear. Cardiovascular: Regular rate and rhythm. Abdomen is soft. DIAGNOSTIC DATA: He has an EEG today, which showed diffuse slowing, but no seizure activity. His CT scan showed no acute changes, but did show diffuse atrophy that is unchanged from a few days ago. There is no interval stroke or other symptoms. ASSESSMENT AND PLAN: Simeon is much improved from early in this hospitalization. We do not have any specific further recommendations or interventions, but please call me if problems arise. [id number]/[facility] #: [id number] MANDY
[2018-10-14] MEDS: NS 0.9% 1000 ML** 1,000 ML IV SCH (22:09)
[2018-10-15 07:13] LABS: ABS Basophils 0 10^3/ul (0-0.2); ABS Eosinophils 0.1 10^3/ul (0-0.6); ABS Lymphocytes 0.6 10^3/ul (1.0-4.8); ABS Monocytes 0.3 10^3/ul (0-0.8); ABS Nucleated RBC 0 10^3/ul; Eosinophil % 1.7 %; Hematocrit 32 % (42-52); Hemoglobin 10.9 g/dl (14.0-18.0); Lymphocyte % 11.6 %; Mean Corpuscular HGB Conc 34 g/dl (31-36); Mean Corpuscular Hemoglobin 31 pg (27-31); Mean Corpuscular Volume 93 fL (80-94); Mean Platelet Volume 8.8 fL (7.4-10.4); Nucleated Red Blood Cells % 0; Platelet Count 163 10^3/ul (150-450); Red Blood Count 3.46 10^6/ul (4.00-5.40); Red Cell Distribution Width 14 % (10.5-15)
[2018-10-15 08:20] LABS: Albumin 2.7 g/dL (3.2-5.2); Calcium 8.1 mg/dL (8.6-10.3); Magnesium 1.9 mg/dL (1.9-2.7); Potassium 3.1 mmol/L (3.5-5.0); Total Bilirubin 0.3 mg/dL (0.2-1.0)
[2018-10-15 08:26] LABS: Albumin/Globulin Ratio 1.7 (1-3); BUN/Creatinine Ratio 11.4 (8-20); EGFR African American 139.7 (>60); EGFR Non-African American 115.4 (>60); Globulin 1.6 g/dL (2-4); Phosphorus 2.9 mg/dL (2.5-5.0); Total Protein 4.3 g/dL (6.4-8.9)
[2018-10-15] MEDS: Benztropine TAB* 1 MG PO SCH (09:13)
[2018-10-15] MEDS: Pantoprazole IV* 40 MG IV SCH ×2 (09:13→21:55)
[2018-10-15] MEDS: CloZAPine TAB* 25 MG TAB PO SCH (09:13)
[2018-10-15] MEDS: Valproic Acid IV(*) 500 MG in NS 0.9% 100 ML* 100 ML IVPB SCH ×2 (09:22→21:55)
[2018-10-15] MEDS ORDERED: Potassium Chlor TAB* 20 MEQ TAB.ER PO STA (12:12)
[2018-10-15] MEDS ORDERED: Potassium Chloride LIQUID* 20 MEQ PACKET PO STA (12:22)
--- NOTE | 2018-10-15 20:17 | PN ---
Subjective Date of Service: 10/15/18 Interval History: Pt seen and examined. Meds and labs reviewed. CC: N/A ROS: Denied BLACK/dizziness, F/C, N/V, CP, SOB, increased cough, sputum production , abd pain, diarrhea, constipation, dysuria, myalgias, arthralgias, throat pain , and new skin lesions. The rest of the 14 point ROS are unremarkable. PHYSICAL EXAM: GEN APPEARANCE: Asleep, arousable, but still slightly lethargic, not in acute distress HEENT: NC/AT, PERRLA, moist oral mucosa, (-) throat erythema NECK: Soft, supple, (-) cervical LAD, (-)JVD HEART: S1S2 WNL, RRR, No MRG CHEST: CTA, BL, GAE, No W/R/R ABD: Soft, ND/NT, NABS 4x Q EXT: No C/C/E SKIN: Warm to touch PSYCH: No active psychosis, hallucinations, depression, SI/HI Objective Active Medications: Acetaminophen (Tylenol Tab*) 650 mg PO Q4H PRN PRN Reason: FEVER/PAIN Benztropine Mesylate (Cogentin Tab*) 2 mg PO DAILY [facility] Last Admin: 10/15/18 09:13 Dose: 2 mg Clozapine (Clozapine Tab*) 50 mg PO DAILY [facility] Last Admin: 10/15/18 09:13 Dose: 50 mg Valproic Acid 500 mg/ Sodium (Chloride) 105 mls @ 210 mls/hr IVPB Q12HR [facility] Last Admin: 10/15/18 09:22 Dose: 210 mls/hr Ondansetron HCl (Zofran Inj*) 4 mg IV Q4H PRN PRN Reason: NAUSEA/VOMITING Last Admin: 10/11/18 01:46 Dose: 4 mg Pantoprazole Sodium (Protonix Iv*) 40 mg IV BID [facility] Last Admin: 10/15/18 09:13 Dose: 40 mg Vital Signs - 8 hr 10/15/18 16:15 Temperature 98.2 F Pulse Rate 90 Respiratory 16 Rate Blood Pressure 120/73 (mmHg) O2 Sat by Pulse 98 Oximetry Oxygen Devices in Use Now: None Result Diagrams: 10/15/18 06:35 10/15/18 06:35 Microbiology and Other Data: Microbiology 10/12/18 14:00 Stool Occult Blood (SONNY) - Final Stool Assess/Plan/Problems-Billing Assessment: - Patient Problems (1) Hypotension Current Visit: Yes Status: Acute Comment: -Resolved -Likely due to GIB and poor PO intake -Increasing BUN as well as reports of coffee ground emesis highly suspicious for active bleed -EGD (10/12): Large hiatal hernia; severe erosive GERD w/extensive ulceration; likely source of GIB, however, no active bleeding at time of procedure -Per Dr. Wellington pt also has tendency to lie on his right side after taking his pills; this unfortunately increases chances of pill causing erosive esophagitis ; discussed life style modifications and lie more to the left -Continue Pantoprazole IV BID due to poor IV access -D/W Dr. Wellington; appreciate his input and expertise (2) Seizure disorder Current Visit: Yes Status: Acute Code(s): G40.909 - EPILEPSY, UNSP, NOT INTRACTABLE, WITHOUT STATUS EPILEPTICUS SNOMED Code(s): 575431778 Comment: -EEG consistent w/Encephalopathy (10/14) -Repeat CT of head: NAD -Likely focal in onset? -Continue Valproic acid -EEG: Yvan and slow wave discharges in the right hemisphere (on admission) -Brain CT: NAD (3) Schizoaffective disorder Current Visit: Yes Status: Acute Code(s): F25.9 - SCHIZOAFFECTIVE DISORDER, UNSPECIFIED SNOMED Code(s): 01687583 Comment: -Continue Clozapine as discussed w/Dr. Marlow -Continue watchful waiting (4) DVT prophylaxis Current Visit: Yes Status: Acute Code(s): [id number] - SNOMED Code(s): 751897355 Comment: -Continue SCDs Status and Disposition: -For OMAR placement
[2018-10-16 06:15] LABS: Hematocrit 29 % (42-52); Hemoglobin 10.3 g/dl (14.0-18.0); Mean Corpuscular HGB Conc 35 g/dl (31-36); Mean Corpuscular Hemoglobin 32 pg (27-31); Mean Corpuscular Volume 91 fL (80-94); Mean Platelet Volume 8.2 fL (7.4-10.4); Platelet Count 178 10^3/ul (150-450); Red Blood Count 3.23 10^6/ul (4.00-5.40); Red Cell Distribution Width 14 % (10.5-15); White Blood Count 3.7 10^3/ul (3.5-10.8)
[2018-10-16 06:33] LABS: BUN/Creatinine Ratio 7.4 (8-20); EGFR African American 144.4 (>60); EGFR Non-African American 119.4 (>60)
[2018-10-16 06:39] LABS: ABS Basophils 0 10^3/ul (0-0.2); ABS Eosinophils 0.1 10^3/ul (0-0.6); ABS Lymphocytes 0.9 10^3/ul (1.0-4.8); ABS Monocytes 0.4 10^3/ul (0-0.8); ABS Neutrophils 2.3 10^3/ul (1.5-7.7); ABS Nucleated RBC 0 10^3/ul; Eosinophil % 2.5 %; Nucleated Red Blood Cells % 0.1
[2018-10-16] MEDS: Benztropine TAB* 1 MG PO SCH (08:55)
[2018-10-16] MEDS: CloZAPine TAB* 25 MG TAB PO SCH (08:55)
[2018-10-16] MEDS: Valproic Acid IV(*) 500 MG in NS 0.9% 100 ML* 100 ML IVPB SCH ×2 (08:55→21:42)
[2018-10-16] MEDS: Pantoprazole IV* 40 MG IV SCH (08:55)
[2018-10-16] MEDS ORDERED: Potassium Chlor TAB* 20 MEQ TAB.ER PO ONE ×2 (20:49→23:55)
--- NOTE | 2018-10-16 20:49 | PN ---
Subjective Date of Service: 10/16/18 Interval History: Patient seen today, no events. sitting in chair. awake and alert. Past Medical History: Unchanged from Admission Objective Active Medications: Acetaminophen (Tylenol Tab*) 650 mg PO Q4H PRN PRN Reason: FEVER/PAIN Benztropine Mesylate (Cogentin Tab*) 2 mg PO DAILY [facility] Last Admin: 10/16/18 08:55 Dose: 2 mg Clozapine (Clozapine Tab*) 50 mg PO DAILY [facility] Last Admin: 10/16/18 08:55 Dose: 50 mg Valproic Acid 500 mg/ Sodium (Chloride) 105 mls @ 210 mls/hr IVPB Q12HR [facility] Last Admin: 10/16/18 08:55 Dose: 210 mls/hr Ondansetron HCl (Zofran Inj*) 4 mg IV Q4H PRN PRN Reason: NAUSEA/VOMITING Last Admin: 10/11/18 01:46 Dose: 4 mg Pantoprazole Sodium (Protonix Iv*) 40 mg IV BID [facility] Last Admin: 10/16/18 08:55 Dose: 40 mg Vital Signs - 8 hr 10/16/18 15:33 Temperature 98.1 F Pulse Rate 88 Respiratory 16 Rate Blood Pressure 125/76 (mmHg) O2 Sat by Pulse 100 Oximetry Oxygen Devices in Use Now: None Appearance: flat affect. monotonic voice. respond appropriately to question although slow response Eyes: No Scleral Icterus Ears/Nose/Mouth/Throat: Clear Oropharnyx Neck: NL Appearance and Movements; NL JVP Respiratory: Symmetrical Chest Expansion and Respiratory Effort, Clear to Auscultation Cardiovascular: NL Sounds; No Murmurs; No JVD Extremities: No Edema Result Diagrams: 10/16/18 05:57 10/16/18 05:57 Microbiology and Other Data: Microbiology 10/12/18 14:00 Stool Occult Blood (SONNY) - Final Stool Assess/Plan/Problems-Billing Assessment: 58 y/o male admitted for coffee ground emesis. - Patient Problems (1) Coffee ground emesis Current Visit: Yes Status: Acute Code(s): K92.0 - HEMATEMESIS SNOMED Code( s): 27086130 Comment: -Appreciate Dr. Wilkes -EGD (10/12): Large hiatal hernia; severe erosive GERD w/extensive ulceration; likely source of GIB, however, no active bleeding at time of procedure -Continue Pantoprazole BID will change to PO (2) Hypotension Current Visit: Yes Status: Acute Comment: - Resolved -Likely due to GIB and poor PO intake -EGD (10/12): Large hiatal hernia; severe erosive GERD w/extensive ulceration; likely source of GIB, however, no active bleeding at time of procedure -Continue Pantoprazole BID will change to PO (3) Schizoaffective disorder Current Visit: Yes Status: Acute Code(s): F25.9 - SCHIZOAFFECTIVE DISORDER, UNSPECIFIED SNOMED Code(s): 94438192 Comment: -Continue Clozapine as discussed w/Dr. Marlow by previous hospitalist (4) Seizure disorder Current Visit: Yes Status: Acute Code(s): G40.909 - EPILEPSY, UNSP, NOT INTRACTABLE, WITHOUT STATUS EPILEPTICUS SNOMED Code(s): 921288558 Comment: -EEG consistent w/Encephalopathy (10/14) -Repeat CT of head: NAD -Likely focal in onset, Continue Valproic acid -EEG: Yvan and slow wave discharges in the right hemisphere (on admission) -Brain CT: NAD (5) Hypokalemia Current Visit: Yes Status: Acute Code(s): E87.6 - HYPOKALEMIA SNOMED Code( s): 30797696 Comment: - K+ 3.0 - Will give 40 meq now and again 40 meq 3-4 hours later - Recheck BMP in am (6) DVT prophylaxis Current Visit: Yes Status: Acute Code(s): JGE5263 - SNOMED Code(s): 715695323 Comment: -Continue SCDs Status and Disposition: -For OMAR placement
[2018-10-16] MEDS: Pantoprazole TAB * 40 MG TAB PO SCH (21:41)
[2018-10-17 07:34] LABS: Hematocrit 31 % (42-52); Hemoglobin 10.8 g/dl (14.0-18.0); Mean Corpuscular HGB Conc 35 g/dl (31-36); Mean Corpuscular Hemoglobin 32 pg (27-31); Mean Corpuscular Volume 92 fL (80-94); Mean Platelet Volume 8.8 fL (7.4-10.4); Platelet Count 184 10^3/ul (150-450); Red Blood Count 3.42 10^6/ul (4.00-5.40); Red Cell Distribution Width 14 % (10.5-15); White Blood Count 4.1 10^3/ul (3.5-10.8)
[2018-10-17 07:46] LABS: BUN/Creatinine Ratio 5.9 (8-20); Calcium 8.2 mg/dL (8.6-10.3); EGFR African American 144.4 (>60); EGFR Non-African American 119.4 (>60); Magnesium 1.8 mg/dL (1.9-2.7); Phosphorus 3.1 mg/dL (2.5-5.0); Potassium 3.5 mmol/L (3.5-5.0)
[2018-10-17 08:23] LABS: ABS Basophils 0 10^3/ul (0-0.2); ABS Eosinophils 0.1 10^3/ul (0-0.6); ABS Lymphocytes 0.7 10^3/ul (1.0-4.8); ABS Monocytes 0.5 10^3/ul (0-0.8); ABS Neutrophils 2.8 10^3/ul (1.5-7.7); ABS Nucleated RBC 0 10^3/ul; Eosinophil % 2.6 %; Lymphocyte % 17.1 %; Nucleated Red Blood Cells % 0.1
[2018-10-17] MEDS: Pantoprazole TAB * 40 MG TAB PO SCH ×2 (08:24→21:08)
[2018-10-17] MEDS: CloZAPine TAB* 25 MG TAB PO SCH (08:24)
[2018-10-17] MEDS: Benztropine TAB* 1 MG PO SCH (08:24)
[2018-10-17] MEDS ORDERED: Magnesium Sulfate 1 GM IV* 1 GM/100 ML BAG IV ONE (08:59)
[2018-10-17] MEDS ORDERED: Valproic Acid CAP(*) 250 MG PO SCH (09:00)
[2018-10-17] MEDS: Valproic Acid IV(*) 500 MG in NS 0.9% 100 ML* 100 ML IVPB SCH (09:07)
--- NOTE | 2018-10-17 17:06 | PN ---
Subjective Date of Service: 10/17/18 Interval History: Patient noted to have increase lethargy today. Arousable to tactile and verbal stimuli. He is more lethargic and less responsive at times as per nursing staff. Patient was assess couple of times today at the request of his nursing staff as once it was reported that the patient is not responding. I did come up and assess the patient immediately and he was in the same mental status as he was earlier this morning when I first assessed him. He is asleep, difficult to arouse but he does wake up and answers questions but in a muffled voice. Vitals were within normal as documented in his vitals. Valproic acid level ordered and it was over 100, and Clozapine is at 50 mg and administered in the morning. At this time I advised and ordered placed to hold his valproic acid today, will repeat level in am (plan to decrease his dose from 500 mg bid to 250 mg in am and 500 mg in pm), and clozapine will be decreased to 25 mg from 50 mg and will change it to pm but not to start until tomorrow Sunday10/18/18 pm dose. I relayed a concerns of a caregiver to repeat heat CT due to recent fall , but I did review his record and CT scan was already done after his unwitnessed fall and was negative. At this time I do not see the need or benefit from a repeat Head CT without an repeat fall. I do suspect his lethargy is a combination of valproic toxicity and exacerbated with clozapine. both have addressed and adjusted. I expect his mentation to improve. Past Medical History: Unchanged from Admission Objective Active Medications: Acetaminophen (Tylenol Tab*) 650 mg PO Q4H PRN PRN Reason: FEVER/PAIN Benztropine Mesylate (Cogentin Tab*) 2 mg PO DAILY [facility] Last Admin: 10/17/18 08:24 Dose: 2 mg Clozapine (Clozapine Tab*) 25 mg PO BEDTIME [facility] Ondansetron HCl (Zofran Inj*) 4 mg IV Q4H PRN PRN Reason: NAUSEA/VOMITING Last Admin: 10/11/18 01:46 Dose: 4 mg Pantoprazole Sodium (Protonix Tab*) 40 mg PO BID [facility] Last Admin: 10/17/18 08:24 Dose: 40 mg Valproic Acid (Depakene Cap(*)) 250 mg PO QAM [facility] Valproic Acid (Depakene Cap(*)) 500 mg PO BEDTIME [facility] Vital Signs - 8 hr 10/17/18 10/17/18 12:32 14:51 Temperature 98.0 F 98.0 F Pulse Rate 85 84 Respiratory 16 18 Rate Blood Pressure 107/75 119/70 (mmHg) O2 Sat by Pulse 99 99 Oximetry Oxygen Devices in Use Now: None Appearance: lethargic, but arousable and respond to questions, thought very sluggish and required several verbal and tactile clues Eyes: No Scleral Icterus Ears/Nose/Mouth/Throat: Mucous Membranes Moist, - - drooping. Neck: Trachea Midline Respiratory: Symmetrical Chest Expansion and Respiratory Effort, Clear to Auscultation Cardiovascular: NL Sounds; No Murmurs; No JVD, RRR Neurological: - - lethargic, but arousable. able to follow simple command but required several clues Result Diagrams: 10/17/18 07:04 10/17/18 07:04 Microbiology and Other Data: Microbiology 10/12/18 14:00 Stool Occult Blood (SONNY) - Final Stool Assess/Plan/Problems-Billing Assessment: 58 y/o male admitted for seizure and develloped coffee ground emesis Hospital Day # 2. - Patient Problems (1) Coffee ground emesis Current Visit: Yes Status: Acute Code(s): K92.0 - HEMATEMESIS SNOMED Code( s): 55523838 Comment: -Appreciate Dr. Wilkes -EGD (10/12): Large hiatal hernia; severe erosive GERD w/extensive ulceration; likely source of GIB, however, no active bleeding at time of procedure -Continue Pantoprazole 40 mg PO BID (2) Hypotension Current Visit: Yes Status: Acute Comment: - Resolved - Likely due to GIB and poor PO intake, as well as Clozapine - EGD (10/12): Large hiatal hernia; severe erosive GERD w/extensive ulceration; likely source of GIB, however, no active bleeding at time of procedure - Continue Pantoprazole 40 mg PO BID (3) Schizoaffective disorder Current Visit: Yes Status: Acute Code(s): F25.9 - SCHIZOAFFECTIVE DISORDER, UNSPECIFIED SNOMED Code(s): 59680436 Comment: - Continue Clozapine but given increase lethargy with the combination of valproic acid, I will decrease the dose to 25 mg and change it to pm regimen. - Once he is more awake and valproic acid normalized I will probably move it back to am and readjust dose if needed. - Continue cogentin for EPS prophyalxis treatment (4) Seizure disorder Current Visit: Yes Status: Acute Code(s): G40.909 - EPILEPSY, UNSP, NOT INTRACTABLE, WITHOUT STATUS EPILEPTICUS SNOMED Code(s): 732283275 Comment: -EEG consistent w/Encephalopathy (10/14) - Repeat CT of head: NAD - Given his lethargy his valproic acid level was over 100. I am going to hold off on his Valproic for tonight, Recheck level in am and probably decrease to 250 mg AM and 500 mg PM. -EEG: Yvan and slow wave discharges in the right hemisphere (on admission) -Brain CT: NAD (5) Hypokalemia Current Visit: Yes Status: Acute Code(s): E87.6 - HYPOKALEMIA SNOMED Code( s): 13614064 Comment: - K+ 3.0 10/16/18 s/p 40 meq x2 this morning 3.5 - Recheck BMP in am - I will place on K-Dur 40 Meq daily and Mag oxide 800 mg po daily (6) DVT prophylaxis Current Visit: Yes Status: Acute Code(s): KQT5336 - SNOMED Code(s): 586113943 Comment: -Continue SCDs Status and Disposition: -For OMAR placement
[2018-10-17] MEDS: Magnesium Oxide TAB* 400 MG PO SCH (18:17)
[2018-10-17] MEDS: Potassium Chlor TAB* 20 MEQ TAB.ER PO SCH (18:18)
[2018-10-18 07:23] LABS: Hematocrit 32 % (42-52); Hemoglobin 10.7 g/dl (14.0-18.0); Mean Corpuscular HGB Conc 34 g/dl (31-36); Mean Corpuscular Hemoglobin 32 pg (27-31); Mean Corpuscular Volume 93 fL (80-94); Mean Platelet Volume 9.5 fL (7.4-10.4); Platelet Count 143 10^3/ul (150-450); Red Blood Count 3.39 10^6/ul (4.00-5.40); Red Cell Distribution Width 15 % (10.5-15); White Blood Count 4.7 10^3/ul (3.5-10.8)
[2018-10-18 07:31] LABS: Calcium 7.8 mg/dL (8.6-10.3)
[2018-10-18 07:37] LABS: BUN/Creatinine Ratio 6.3 (8-20); EGFR African American 154.9 (>60)
[2018-10-18 08:22] LABS: Lymphocytes % 12 %; Metamyelocytes % 2 % (0-2); Monocytes % 6 %; Myelocytes % 5 % (0-1); Neutrophil % 67 %
[2018-10-18 08:23] LABS: Immature Granulocytes 7 % (0-9); Nucleated Red Blood Cells/100 1 (0-0)
[2018-10-18 08:25] LABS: ABS Basophils 0.09 10^3/ul (0-0.2); ABS Eosinophils 0.28 10^3/ul (0-0.6); ABS Neutrophils 3.47 10^3/ul (1.5-7.7)
[2018-10-18] MEDS ORDERED: Valproic Acid CAP(*) 250 MG PO SCH (09:00)
[2018-10-18] MEDS: Benztropine TAB* 1 MG PO SCH (09:52)
[2018-10-18] MEDS: Potassium Chlor TAB* 20 MEQ TAB.ER PO SCH (09:52)
[2018-10-18] MEDS: Magnesium Oxide TAB* 400 MG PO SCH (09:52)
[2018-10-18] MEDS: Pantoprazole TAB * 40 MG TAB PO SCH ×2 (09:53→20:48)
--- NOTE | 2018-10-18 20:04 | PN ---
Subjective Date of Service: 10/18/18 Interval History: Patient seen today, more awake, alert. He is in chair, tolerating diet. He did fall but sliding out of his chair. no head trauma, he leaned forward onto his hands and knees. Patient moved to room closer to nurse station and several safety alarm applied Past Medical History: Unchanged from Admission Objective Active Medications: Acetaminophen (Tylenol Tab*) 650 mg PO Q4H PRN PRN Reason: FEVER/PAIN Benztropine Mesylate (Cogentin Tab*) 2 mg PO DAILY [facility] Last Admin: 10/18/18 09:52 Dose: 2 mg Clozapine (Clozapine Tab*) 25 mg PO BEDTIME [facility] Magnesium Oxide (Magox 400 Tab*) 800 mg PO DAILY [facility] Last Admin: 10/18/18 09:52 Dose: 800 mg Ondansetron HCl (Zofran Inj*) 4 mg IV Q4H PRN PRN Reason: NAUSEA/VOMITING Last Admin: 10/11/18 01:46 Dose: 4 mg Pantoprazole Sodium (Protonix Tab*) 40 mg PO BID [facility] Last Admin: 10/18/18 09:53 Dose: 40 mg Potassium Chloride (Klor Con Er Tab*) 40 meq PO DAILY [facility] Last Admin: 10/18/18 09:52 Dose: 40 meq Valproic Acid (Depakene Cap(*)) 250 mg PO QAM [facility] Last Admin: 10/18/18 09:53 Dose: 250 mg Vital Signs - 8 hr 10/18/18 10/18/18 15:24 16:15 Temperature 97.9 F Pulse Rate 83 87 Respiratory 16 20 Rate Blood Pressure 98/58 107/71 (mmHg) O2 Sat by Pulse 100 Oximetry Oxygen Devices in Use Now: None Appearance: Awake, alert. not obtuneded. improved by holding his depakote and decreasing his doses Eyes: No Scleral Icterus Ears/Nose/Mouth/Throat: - - dry oral mucosa, poor dental hygiene Neck: NL Appearance and Movements; NL JVP, Trachea Midline Respiratory: Symmetrical Chest Expansion and Respiratory Effort, Clear to Auscultation Cardiovascular: NL Sounds; No Murmurs; No JVD Abdominal: NL Sounds; No Tenderness; No Distention Result Diagrams: 10/18/18 06:52 10/18/18 06:52 Microbiology and Other Data: Microbiology 10/12/18 14:00 Stool Occult Blood (SONNY) - Final Stool Assess/Plan/Problems-Billing Assessment: 58 y/o male admitted for seizure and develloped coffee ground emesis on Hospital day# 2. - Patient Problems (1) Coffee ground emesis Current Visit: Yes Status: Acute Code(s): K92.0 - HEMATEMESIS SNOMED Code( s): 20956329 Comment: -Appreciate Dr. Wilkes -EGD (10/12): Large hiatal hernia; severe erosive GERD w/extensive ulceration; likely source of GIB, however, no active bleeding at time of procedure -Continue Pantoprazole 40 mg PO BID (2) Hypotension Current Visit: Yes Status: Acute Comment: - Resolved - Likely due to GIB and poor PO intake, as well as Clozapine - EGD (10/12): Large hiatal hernia; severe erosive GERD w/extensive ulceration; likely source of GIB, however, no active bleeding at time of procedure - Continue Pantoprazole 40 mg PO BID (3) Schizoaffective disorder Current Visit: Yes Status: Acute Code(s): F25.9 - SCHIZOAFFECTIVE DISORDER, UNSPECIFIED SNOMED Code(s): 43671528 Comment: - Continue Clozapine but given increase lethargy with the combination of valproic acid, I did decrease the dose to 25 mg and change it to pm regimen. - Once he is more awake and valproic acid normalized I will probably move it back to am and readjust dose if needed. - Continue cogentin for EPS prophyalxis treatment (4) Seizure disorder Current Visit: Yes Status: Acute Code(s): G40.909 - EPILEPSY, UNSP, NOT INTRACTABLE, WITHOUT STATUS EPILEPTICUS SNOMED Code(s): 079805715 Comment: -EEG consistent w/Encephalopathy (10/14) - Repeat CT of head: NAD - Given his lethargy 10/17/28 his valproic acid level was over 100. I did decrease to 250 mg AM and 500 mg PM. but due to fall this evening, I will hold his pm valproic to avoid lethary and altered mental status due to valproic that can be confused by mental status change due to the fall. will resume in am his valporic acid -EEG: Yvan and slow wave discharges in the right hemisphere (on admission) -Brain CT: NAD (5) Hypokalemia Current Visit: Yes Status: Acute Code(s): E87.6 - HYPOKALEMIA SNOMED Code( s): 63213330 Comment: - K+ 3.0 10/16/18 s/p 40 meq x2 - started K-Dur 40 Meq daily and Mag oxide 800 mg po daily (6) DVT prophylaxis Current Visit: Yes Status: Acute Code(s): VXP6693 - SNOMED Code(s): 349224489 Comment: -Continue SCDs Status and Disposition: -For OMAR placement
[2018-10-18] MEDS ORDERED: CloZAPine TAB* 25 MG TAB PO SCH (21:00)
[2018-10-19 07:41] LABS: BUN/Creatinine Ratio 5.4 (8-20); Calcium 8.1 mg/dL (8.6-10.3); EGFR Non-African American 108.3 (>60); Magnesium 2.1 mg/dL (1.9-2.7); Potassium 3.9 mmol/L (3.5-5.0)
[2018-10-19] MEDS: Benztropine TAB* 1 MG PO SCH (08:37)
[2018-10-19] MEDS: Potassium Chlor TAB* 20 MEQ TAB.ER PO SCH (08:39)
[2018-10-19] MEDS: Valproic Acid CAP(*) 250 MG PO SCH ×2 (08:40→19:48)
[2018-10-19] MEDS: Magnesium Oxide TAB* 400 MG PO SCH (08:40)
[2018-10-19] MEDS: Pantoprazole TAB * 40 MG TAB PO SCH ×2 (08:40→19:48)
--- NOTE | 2018-10-19 17:02 | PN ---
Subjective Date of Service: 10/19/18 Interval History: More awake, no psychotic feature. More alert and interactive. Past Medical History: Unchanged from Admission Objective Active Medications: Acetaminophen (Tylenol Tab*) 650 mg PO Q4H PRN PRN Reason: FEVER/PAIN Benztropine Mesylate (Cogentin Tab*) 2 mg PO DAILY [facility] Last Admin: 10/19/18 08:37 Dose: 2 mg Clozapine (Clozapine Tab*) 25 mg PO BEDTIME [facility] Last Admin: 10/18/18 20:48 Dose: 25 mg Magnesium Oxide (Magox 400 Tab*) 800 mg PO DAILY [facility] Last Admin: 10/19/18 08:40 Dose: 800 mg Ondansetron HCl (Zofran Inj*) 4 mg IV Q4H PRN PRN Reason: NAUSEA/VOMITING Last Admin: 10/11/18 01:46 Dose: 4 mg Pantoprazole Sodium (Protonix Tab*) 40 mg PO BID [facility] Last Admin: 10/19/18 08:40 Dose: 40 mg Potassium Chloride (Klor Con Er Tab*) 40 meq PO DAILY [facility] Last Admin: 10/19/18 08:39 Dose: 40 meq Valproic Acid (Depakene Cap(*)) 250 mg PO BID [facility] Last Admin: 10/19/18 08:40 Dose: 250 mg Vital Signs - 8 hr 10/19/18 10/19/18 11:16 15:37 Temperature 98.0 F 99.0 F Pulse Rate 96 105 Respiratory 14 16 Rate Blood Pressure 119/59 93/65 (mmHg) O2 Sat by Pulse 99 100 Oximetry Oxygen Devices in Use Now: None Appearance: Awake, alert no distress. pleasant. Eyes: No Scleral Icterus Ears/Nose/Mouth/Throat: NL Teeth, Lips, Gums Neck: NL Appearance and Movements; NL JVP, Trachea Midline Respiratory: Symmetrical Chest Expansion and Respiratory Effort, Clear to Auscultation Cardiovascular: NL Sounds; No Murmurs; No JVD, RRR Abdominal: NL Sounds; No Tenderness; No Distention Extremities: No Edema Result Diagrams: 10/18/18 06:52 10/19/18 07:07 Microbiology and Other Data: Microbiology 10/12/18 14:00 Stool Occult Blood (SONNY) - Final Stool Assess/Plan/Problems-Billing Assessment: 58 y/o male admitted for seizure and develloped coffee ground emesis on Hospital day# 2. - Patient Problems (1) Coffee ground emesis Current Visit: Yes Status: Acute Code(s): K92.0 - HEMATEMESIS SNOMED Code( s): 12137537 Comment: -Appreciate Dr. Wilkes -EGD (10/12): Large hiatal hernia; severe erosive GERD w/extensive ulceration; likely source of GIB, however, no active bleeding at time of procedure -Continue Pantoprazole 40 mg PO BID (2) Hypotension Current Visit: Yes Status: Acute Comment: - Resolved - Likely due to GIB and poor PO intake, as well as Clozapine - EGD (10/12): Large hiatal hernia; severe erosive GERD w/extensive ulceration; likely source of GIB, however, no active bleeding at time of procedure - Continue Pantoprazole 40 mg PO BID (3) Schizoaffective disorder Current Visit: Yes Status: Acute Code(s): F25.9 - SCHIZOAFFECTIVE DISORDER, UNSPECIFIED SNOMED Code(s): 25352541 Comment: - Continue Clozapine but given increase lethargy with the combination of valproic acid, I did decrease the dose to 25 mg and change it to pm regimen. If he devellop increase psychotic feature I will increase back to 50 mg - Continue cogentin for EPS prophyalxis treatment (4) Seizure disorder Current Visit: Yes Status: Acute Code(s): G40.909 - EPILEPSY, UNSP, NOT INTRACTABLE, WITHOUT STATUS EPILEPTICUS SNOMED Code(s): 897328542 Comment: -EEG consistent w/Encephalopathy (10/14) - Repeat CT of head: NAD - Given his lethargy 10/17/28 his valproic acid level was over 100. I did decrease to 250 mg AM and 500 mg PM. - But, due to fall 10/18/18, I did hold his pm valproic to avoid lethary and altered mental status due to valproic (which could be confused by mental status change due to the fall). - this am his valproic acid despite being on hold remains 51. I will resume valproic acid to 250 mg bid - EEG: Yvan and slow wave discharges in the right hemisphere (on admission) -Brain CT: NAD - If he devellop altered mental status now that he is on 250 mg bid will check ammonia level. (5) Hypokalemia Current Visit: Yes Status: Acute Code(s): E87.6 - HYPOKALEMIA SNOMED Code( s): 34785635 Comment: - K+ 3.0 10/16/18 s/p 40 meq x2 - started K-Dur 40 Meq daily and Mag oxide 800 mg po daily (6) DVT prophylaxis Current Visit: Yes Status: Acute Code(s): LQT3472 - SNOMED Code(s): 284410741 Comment: -Continue SCDs Status and Disposition: -For OMAR placement
[2018-10-19] MEDS: Acetaminophen TAB* 325 MG PO PRN (19:48)
[2018-10-19] MEDS ORDERED: Valproic Acid CAP(*) 250 MG PO SCH (21:00)
[2018-10-19] MEDS ORDERED: CloZAPine TAB* 25 MG TAB PO SCH (21:00)
[2018-10-20] MEDS: Valproic Acid CAP(*) 250 MG PO SCH ×2 (08:35→21:17)
[2018-10-20] MEDS: Magnesium Oxide TAB* 400 MG PO SCH (08:35)
[2018-10-20] MEDS: Benztropine TAB* 1 MG PO SCH (08:35)
[2018-10-20] MEDS: Pantoprazole TAB * 40 MG TAB PO SCH ×2 (08:36→21:17)
[2018-10-20] MEDS: Potassium Chlor TAB* 20 MEQ TAB.ER PO SCH (08:36)
--- NOTE | 2018-10-20 12:03 | PN ---
Subjective Date of Service: 10/20/18 Interval History: Patient seen awake, confused at times. but he is more alert. Given his recent fall (again) and intermittent confusion, CT head last night ordered and result benign. no active bleed. Depakote level stabilized at 61. Will keep him on low dose of 250 mg bid. low grade fever this morning. Will check UA Past Medical History: Unchanged from Admission Objective Active Medications: Acetaminophen (Tylenol Tab*) 650 mg PO Q4H PRN PRN Reason: FEVER/PAIN Last Admin: 10/19/18 19:48 Dose: 650 mg Benztropine Mesylate (Cogentin Tab*) 2 mg PO DAILY [facility] Last Admin: 10/20/18 08:35 Dose: 2 mg Clozapine (Clozapine Tab*) 50 mg PO DAILY [facility] Magnesium Oxide (Magox 400 Tab*) 800 mg PO DAILY [facility] Last Admin: 10/20/18 08:35 Dose: 800 mg Ondansetron HCl (Zofran Inj*) 4 mg IV Q4H PRN PRN Reason: NAUSEA/VOMITING Last Admin: 10/11/18 01:46 Dose: 4 mg Pantoprazole Sodium (Protonix Tab*) 40 mg PO BID [facility] Last Admin: 10/20/18 08:36 Dose: 40 mg Potassium Chloride (Klor Con Er Tab*) 40 meq PO DAILY [facility] Last Admin: 10/20/18 08:36 Dose: 40 meq Valproic Acid (Depakene Cap(*)) 250 mg PO BID [facility] Last Admin: 10/20/18 08:35 Dose: 250 mg Vital Signs - 8 hr 10/20/18 10/20/18 10/20/18 07:45 08:00 11:26 Temperature 98.1 F 98.3 F Pulse Rate 96 99 Respiratory 16 17 16 Rate Blood Pressure 113/79 112/54 (mmHg) O2 Sat by Pulse 98 100 Oximetry Oxygen Devices in Use Now: None Appearance: Awake, alert. no distress. disoriented. interactive. Ambulate with assistance to bathroom Eyes: No Scleral Icterus, - Ears/Nose/Mouth/Throat: Mucous Membranes Moist, - - poor dental hygienee Neck: NL Appearance and Movements; NL JVP, Trachea Midline Respiratory: Symmetrical Chest Expansion and Respiratory Effort, Clear to Auscultation Cardiovascular: NL Sounds; No Murmurs; No JVD, No Edema Abdominal: NL Sounds; No Tenderness; No Distention Result Diagrams: 10/18/18 06:52 10/19/18 07:07 Microbiology and Other Data: Microbiology 10/12/18 14:00 Stool Occult Blood (SONNY) - Final Stool Assess/Plan/Problems-Billing Assessment: 58 y/o male admitted for seizure and develloped coffee ground emesis on Hospital day# 2. - Patient Problems (1) Coffee ground emesis Current Visit: Yes Status: Acute Code(s): K92.0 - HEMATEMESIS SNOMED Code( s): 33675486 Comment: -Appreciate Dr. Wilkes -EGD (10/12): Large hiatal hernia; severe erosive GERD w/extensive ulceration; likely source of GIB, however, no active bleeding at time of procedure -Continue Pantoprazole 40 mg PO BID (2) Hypotension Current Visit: Yes Status: Acute Comment: - Resolved - Likely due to GIB and poor PO intake, as well as Clozapine - EGD (10/12): Large hiatal hernia; severe erosive GERD w/extensive ulceration; likely source of GIB, however, no active bleeding at time of procedure - Continue Pantoprazole 40 mg PO BID (3) Schizoaffective disorder Current Visit: Yes Status: Acute Code(s): F25.9 - SCHIZOAFFECTIVE DISORDER, UNSPECIFIED SNOMED Code(s): 56182769 Comment: - Continue Clozapine but given increase lethargy with the combination of valproic acid, I did decrease the dose to 25 mg but he is getting restless, I did increase back to 50 mg (intial dose was 100 mg) - Continue cogentin for EPS prophyalxis treatment (4) Seizure disorder Current Visit: Yes Status: Acute Code(s): G40.909 - EPILEPSY, UNSP, NOT INTRACTABLE, WITHOUT STATUS EPILEPTICUS SNOMED Code(s): 255735853 Comment: -EEG consistent w/Encephalopathy (10/14) - Repeat CT of head: NAD - Given his lethargy 10/17/28 his valproic acid level was over 100. I did decrease to 250 mg AM and 500 mg PM. But he remained confused. I finally decrease to 250 mg bid and his level now stable at 61. Will keep it at this dose for now - EEG: Yvan and slow wave discharges in the right hemisphere (on admission) -Brain CT: NAD - If he devellop altered mental status now that he is on 250 mg bid will check ammonia level. (5) Hypokalemia Current Visit: Yes Status: Acute Code(s): E87.6 - HYPOKALEMIA SNOMED Code( s): 03856711 Comment: - K+ 3.0 10/16/18 s/p 40 meq x2 - started K-Dur 40 Meq daily and Mag oxide 800 mg po daily (6) DVT prophylaxis Current Visit: Yes Status: Acute Code(s): KIR4621 - SNOMED Code(s): 729273246 Comment: -Continue SCDs Status and Disposition: -For OMAR placement! Awaiting placement
[2018-10-20] MEDS: CloZAPine TAB* 25 MG TAB PO SCH (12:40)
[2018-10-20] MEDS: Acetaminophen TAB* 325 MG PO PRN (21:16)
[2018-10-21 05:45] LABS: Hematocrit 36 % (42-52); Hemoglobin 11.9 g/dl (14.0-18.0); Mean Corpuscular HGB Conc 33 g/dl (31-36); Mean Corpuscular Hemoglobin 31 pg (27-31); Mean Corpuscular Volume 91 fL (80-94); Mean Platelet Volume 7.6 fL (7.4-10.4); Platelet Count 284 10^3/ul (150-450); Red Blood Count 3.89 10^6/ul (4.00-5.40); Red Cell Distribution Width 14 % (10.5-15); White Blood Count 13.8 10^3/ul (3.5-10.8)
[2018-10-21 06:04] LABS: BUN/Creatinine Ratio 13.6 (8-20); Calcium 8.6 mg/dL (8.6-10.3); EGFR African American 107.3 (>60); EGFR Non-African American 88.6 (>60); Phosphorus 2.3 mg/dL (2.5-5.0); Potassium 4.2 mmol/L (3.5-5.0)
[2018-10-21 06:05] LABS: ABS Basophils 0 10^3/ul (0-0.2); ABS Eosinophils 0 10^3/ul (0-0.6); ABS Lymphocytes 0.4 10^3/ul (1.0-4.8); ABS Monocytes 2.1 10^3/ul (0-0.8); ABS Neutrophils 11.3 10^3/ul (1.5-7.7); ABS Nucleated RBC 0 10^3/ul; Eosinophil % 0.1 %; Lymphocyte % 2.7 %; Nucleated Red Blood Cells % 0
[2018-10-21] MEDS: Pantoprazole TAB * 40 MG TAB PO SCH ×2 (09:48→22:41)
[2018-10-21] MEDS: Potassium Chlor TAB* 20 MEQ TAB.ER PO SCH (09:48)
[2018-10-21] MEDS: Valproic Acid CAP(*) 250 MG PO SCH ×2 (09:48→22:39)
[2018-10-21] MEDS: CloZAPine TAB* 25 MG TAB PO SCH (09:48)
[2018-10-21] MEDS: Magnesium Oxide TAB* 400 MG PO SCH (09:48)
[2018-10-21] MEDS: Benztropine TAB* 1 MG PO SCH (11:41)
--- NOTE | 2018-10-21 16:08 | PN ---
Subjective Date of Service: 10/21/18 Interval History: More lethargic this AM compared to notes from yesterday Does wake but not fully orientated Past Medical History: Unchanged from Admission Objective Active Medications: Acetaminophen (Tylenol Tab*) 650 mg PO Q4H PRN PRN Reason: FEVER/PAIN Last Admin: 10/20/18 21:16 Dose: 650 mg Benztropine Mesylate (Cogentin Tab*) 2 mg PO 1100 [facility] Last Admin: 10/21/18 11:41 Dose: 2 mg Clozapine (Clozapine Tab*) 50 mg PO DAILY [facility] Last Admin: 10/21/18 09:48 Dose: 50 mg Magnesium Oxide (Magox 400 Tab*) 800 mg PO DAILY [facility] Last Admin: 10/21/18 09:48 Dose: 800 mg Ondansetron HCl (Zofran Inj*) 4 mg IV Q4H PRN PRN Reason: NAUSEA/VOMITING Last Admin: 10/11/18 01:46 Dose: 4 mg Pantoprazole Sodium (Protonix Tab*) 40 mg PO BID [facility] Last Admin: 10/21/18 09:48 Dose: 40 mg Potassium Chloride (Klor Con Er Tab*) 40 meq PO DAILY [facility] Last Admin: 10/21/18 09:48 Dose: 40 meq Valproic Acid (Depakene Cap(*)) 250 mg PO BID [facility] Last Admin: 10/21/18 09:48 Dose: 250 mg Vital Signs - 8 hr 10/21/18 12:14 Temperature 98.8 F Pulse Rate 103 Respiratory 14 Rate Blood Pressure 112/57 (mmHg) O2 Sat by Pulse 100 Oximetry Oxygen Devices in Use Now: None Appearance: sleeping, wakes to pressure and loud voice, NAD Eyes: No Scleral Icterus, PERRLA Ears/Nose/Mouth/Throat: NL Teeth, Lips, Gums, Clear Oropharnyx Neck: NL Appearance and Movements; NL JVP, Trachea Midline Respiratory: Symmetrical Chest Expansion and Respiratory Effort, Clear to Auscultation Cardiovascular: NL Sounds; No Murmurs; No JVD, RRR Abdominal: NL Sounds; No Tenderness; No Distention Lymphatic: No Cervical Adenopathy Extremities: No Edema Skin: No Rash or Ulcers Neurological: - - AOx1 to self, lethargic Result Diagrams: 10/21/18 05:36 10/21/18 05:36 Microbiology and Other Data: Microbiology 10/12/18 14:00 Stool Occult Blood (SONNY) - Final Stool Assess/Plan/Problems-Billing Assessment: 58 y/o male admitted for new onset seizures with stay c/b coffee ground emesis on Hospital day# 2. - Patient Problems (1) Leukocytosis Comment: new noted on 10/21. No fevers or other idication of infection. Repeat CBC tomorrow. Consider broader infectious workup based on clinical course and/ or repeat value (2) Coffee ground emesis Comment: - 2 UGIB -EGD (10/12): Large hiatal hernia; severe erosive GERD w/extensive ulceration; likely source of GIB, -Continue Pantoprazole 40 mg PO BID (3) Hypotension Comment: - Resolved - Likely due to GIB and poor PO intake, as well as Clozapine - Continue Pantoprazole 40 mg PO BID (4) Schizoaffective disorder Comment: - Continue Clozapine at 50 mg (intial dose was 100 mg) - recently increased from 25mg. May need to reduce again if remains lethargic - Continue cogentin for EPS prophyalxis treatment (5) Seizure disorder Comment: -EEG consistent w/Encephalopathy (10/14) - Given his lethargy 10/17/28 his valproic acid level was over 100. Decreased to 250 mg AM and 500 mg PM. But he remained confused then decrease to 250 mg bid and his level now stable. Repeat level in the AM -consider reducing clozapine back to 25mg - EEG: Yvan and slow wave discharges in the right hemisphere (on admission) -check ammonia in AM (6) DVT prophylaxis Comment: -Continue SCDs Status and Disposition: -For O[facility] placement. Awaiting placement
[2018-10-21] MEDS: Lactated Ringers 1000 ML Bag* 1,000 ML IV SCH (20:27)
[2018-10-21] MEDS: Acetaminophen TAB* 325 MG PO PRN (22:43)
[2018-10-22 00:46] LABS: Urine Appearance Cloudy; Urine Bacteria Absent (Absent); Urine Bilirubin Negative (Negative); Urine Blood 2+ (Negative); Urine Color Yellow; Urine Glucose Negative (Negative); Urine Ketones Trace (Negative); Urine Nitrite Negative (Negative); Urine Protein 2+(100 mg/dL) (Negative); Urine Red Blood Cell 3+(>10/hpf) (Absent); Urine Specific Gravity 1.011 (1.010-1.030); Urine Urobilinogen Negative (Negative); Urine White Blood Cell 3+(>20/hpf) (Absent)
[2018-10-22 01:01] LABS: Influenza A Molecular NEGATIVE (Negative); Influenza B Molecular NEGATIVE (Negative)
--- NOTE | 2018-10-22 01:04 | PN ---
Progress Note - Progress Note Date of Service: 10/22/18 Note: Paged for patient meeting SIRS criteria - straight cath shows pyuria, no bacteria. Will start Ceftriaxone and bladder scan. Blood cultures also ordered. Clinically stable and appropriate for the floor
[2018-10-22] MEDS ORDERED: cefTRIAXone(*) 1 GM in NS 0.9% 50 ML* 50 ML IVPB SCH (02:00)
[2018-10-22] MEDS: Lactated Ringers 1000 ML Bag* 1,000 ML IV SCH (04:24)
[2018-10-22 07:52] LABS: CO2 Carbon Dioxide 21 mmol/L (22-32); Calcium 8.4 mg/dL (8.6-10.3); Chloride 107 mmol/L (101-111); Sodium 138 mmol/L (135-145)
[2018-10-22 07:58] LABS: Blood Urea Nitrogen 23 mg/dL (6-24); EGFR African American 52.3 (>60); EGFR Non-African American 43.2 (>60); Glucose 105 mg/dL (70-100)
[2018-10-22 08:02] LABS: Anion Gap 10 mmol/L (2-11)
[2018-10-22 08:17] LABS: Hematocrit 32 % (42-52); Hemoglobin 10.7 g/dl (14.0-18.0); Mean Corpuscular HGB Conc 34 g/dl (31-36); Mean Corpuscular Hemoglobin 31 pg (27-31); Mean Corpuscular Volume 92 fL (80-94); Platelet Count 237 10^3/ul (150-450); Red Blood Count 3.47 10^6/ul (4.00-5.40); Red Cell Distribution Width 15 % (10.5-15); White Blood Count 18.7 10^3/ul (3.5-10.8)
[2018-10-22] MEDS ORDERED: Lactated Ringers 1000 ML Bag* 1,000 ML IV SCH (09:00)
[2018-10-22 09:18] LABS: ABS Basophils 0 10^3/ul (0-0.2); ABS Eosinophils 0 10^3/ul (0-0.6); ABS Lymphocytes 0.8 10^3/ul (1.0-4.8); ABS Neutrophils 14.8 10^3/ul (1.5-7.7); ABS Nucleated RBC 0 10^3/ul; Eosinophil % 0 %; Lymphocyte % 4.3 %; Nucleated Red Blood Cells % 0
[2018-10-22] MEDS ORDERED: Piperacillin/Tazobac ADVAN(*) 3.375 GM in NS 0.9% 100 ML* 100 ML IVPB ONE (10:00)
[2018-10-22] MEDS ORDERED: Zosyn per Pharmacy* NOTE FOLLOW UP SCH (10:00)
[2018-10-22] MEDS: Benztropine TAB* 1 MG PO SCH (10:49)
[2018-10-22] MEDS: Valproic Acid CAP(*) 250 MG PO SCH ×2 (10:50→20:31)
[2018-10-22] MEDS: Pantoprazole TAB * 40 MG TAB PO SCH ×2 (10:50→20:31)
[2018-10-22] MEDS ORDERED: NS 0.9% 1000 ML** 1,000 ML IV ONE ×2 (10:51→16:19)
[2018-10-22] MEDS: Magnesium Oxide TAB* 400 MG PO SCH (10:52)
[2018-10-22] MEDS: Potassium Chlor TAB* 20 MEQ TAB.ER PO SCH (10:52)
[2018-10-22] MEDS ORDERED: Patiromer POWDER* 8.4 GM PAK PO ONE (10:53)
[2018-10-22] MEDS: ZOSYN 3.375 GM Q8H per EXTENDED INFUSION IVPB SCH ×2 (15:53)
--- NOTE | 2018-10-22 16:27 | PN ---
Subjective Date of Service: 10/22/18 Interval History: This AM remained lethargic; BP dropped before blood cxs returned with GNR Started on zosyn and bolused 3 L crystalloids Mental status and BP improved by afternoon OOB to bathroom with assistance Past Medical History: Unchanged from Admission Objective Active Medications: Acetaminophen (Tylenol Tab*) 650 mg PO Q4H PRN PRN Reason: FEVER/PAIN Last Admin: 10/21/18 22:43 Dose: 650 mg Benztropine Mesylate (Cogentin Tab*) 2 mg PO 1100 [facility] Last Admin: 10/22/18 10:49 Dose: 2 mg Lactated Ringer's (Lactated Ringers 1000 Ml Bag*) 1,000 mls @ 0 mls/hr IV WIDE OPEN [facility] Stop: 10/23/18 09:01 Last Admin: 10/22/18 08:57 Dose: 1,000 mls/hr Piperacillin Sod/Tazobactam (Sod 3.375 gm/ Sodium Chloride) 100 mls @ 25 mls/ hr IVPB Q8H [facility] Last Admin: 10/22/18 15:53 Dose: 25 mls/hr Magnesium Oxide (Magox 400 Tab*) 800 mg PO DAILY [facility] Last Admin: 10/22/18 10:52 Dose: Not Given Ondansetron HCl (Zofran Inj*) 4 mg IV Q4H PRN PRN Reason: NAUSEA/VOMITING Last Admin: 10/11/18 01:46 Dose: 4 mg Pantoprazole Sodium (Protonix Tab*) 40 mg PO BID [facility] Last Admin: 10/22/18 10:50 Dose: 40 mg Pharmacy Consult (Zosyn Per Pharmacy*) 1 note FOLLOW UP .ZOSYN PER PHARMACY [facility] Valproic Acid (Depakene Cap(*)) 250 mg PO BID [facility] Last Admin: 10/22/18 10:50 Dose: 250 mg Vital Signs - 8 hr 10/22/18 10/22/18 10/22/18 09:47 10:49 12:08 Temperature 98.0 F Pulse Rate 78 95 Respiratory 18 Rate Blood Pressure 98/53 106/56 (mmHg) O2 Sat by Pulse 100 Oximetry Oxygen Devices in Use Now: None Appearance: lethargic in the AM, mumbled name in response to verbal stimuli to wake up Eyes: No Scleral Icterus, PERRLA Ears/Nose/Mouth/Throat: - - dry MM Neck: NL Appearance and Movements; NL JVP, Trachea Midline Respiratory: Symmetrical Chest Expansion and Respiratory Effort, Clear to Auscultation Cardiovascular: NL Sounds; No Murmurs; No JVD, - - bradycardic Abdominal: NL Sounds; No Tenderness; No Distention, No Hepatosplenomegaly Lymphatic: No Cervical Adenopathy Extremities: No Edema Skin: No Rash or Ulcers Neurological: - - AOx0 this AM then x 3 this afternoon, non-focal Result Diagrams: 10/22/18 08:10 10/22/18 08:10 Microbiology and Other Data: Microbiology 10/12/18 14:00 Stool Occult Blood (SONNY) - Final Stool Assess/Plan/Problems-Billing Assessment: 58 y/o male admitted for new onset seizures with stay c/b coffee ground emesis on Hospital day# 2, fluctuating mental status and gram negative bacteremia with sepsis. - Patient Problems (1) Sepsis Comment: tachypnea, leukocytosis, hypotension with end organ dysfunction (AMS and AKF) blood cultures with klebsiella Straight cath'ed for urine night prior, culture not yet back started on CTX, transitioned to zosyn 3 L crystalloids with rapid BP correction (2) Coffee ground emesis Comment: UGIB EGD (10/12): Large hiatal hernia; severe erosive GERD w/extensive ulceration; likely source of GIB, Pantoprazole 40 mg PO BID (3) Schizoaffective disorder Comment: - Clozapine increased to 50 mg from 25mg (intial dose was 100 mg) but discontinued with lethargy today - May need psych input for assistance in medication management - Continue cogentin for EPS prophyalxis treatment (4) Seizure disorder Comment: - Started on valproate with multiple adjustments 2/2 lethargy and valproate toxicity. - Dosing decreased to 250mg BID in order to maintain therapeutic and not higher levels. -Discussed with neurology 3/ and this dose is not likely helpful. Will need to consider different medication. Will await assistance in medication management. - EEG ordered this AM with increased lethargy on lower doses valproate (5) Hyperkalemia Comment: In setting of AKF 2/2 sepsis IV crystalloids Patiromer Recheck this AM EKG wnl (6) Acute kidney failure Comment: In setting of sepsis trend (7) DVT prophylaxis Comment: -Continue SCDs
[2018-10-22 17:03] LABS: BUN/Creatinine Ratio 21.6 (8-20); Calcium 8.2 mg/dL (8.6-10.3); EGFR Non-African American 67.8 (>60); Potassium 4.3 mmol/L (3.5-5.0)
--- NOTE | 2018-10-22 19:29 | PN ---
Subjective Date of Service: 10/22/18 Length of Stay: 12 Days Neurology is following for seizures. Interval History: I have been asked to assess Mr. Howard's for increase confusion and to recommend anti-seizure medications. The patient is a 58-year-old man with history of schizoaffective disorder with psychosis who presented to the ED on 10/10/2018 with increase in confusion, and possible focal seizures. He was seen by Dr. Chavira who started him on valproic acid. He was weaned off Clozaril. The patient developed complication over the hospital course with increase in lethargy. Depakote was decreased and level is within the normal range despite the low dose. Overnight, he had increase in confusion and minimal responsiveness. There are concerns that he could be having ongoing seizures. An EEG was obtained which showed moderate encephalopathy and increase multifocal epileptiform discharges. He is currently being treated for pneumonia. S: The patient was sleeping when evaluated today. He asked me to leave him alone and exit the room when attempted to alert. WBC: 18.7 Ammonia: 53 Valproic acid: 60 Review of Systems: Pt refused to cooperate with a ROS. Past Medical History: Unchanged from Admission Objective Active Medications: Acetaminophen (Tylenol Tab*) 650 mg PO Q4H PRN PRN Reason: FEVER/PAIN Last Admin: 10/21/18 22:43 Dose: 650 mg Benztropine Mesylate (Cogentin Tab*) 2 mg PO 1100 [facility] Last Admin: 10/22/18 10:49 Dose: 2 mg Lactated Ringer's (Lactated Ringers 1000 Ml Bag*) 1,000 mls @ 0 mls/hr IV WIDE OPEN [facility] Stop: 10/23/18 09:01 Last Admin: 10/22/18 08:57 Dose: 1,000 mls/hr Piperacillin Sod/Tazobactam (Sod 3.375 gm/ Sodium Chloride) 100 mls @ 25 mls/ hr IVPB Q8H [facility] Last Admin: 10/22/18 15:53 Dose: 25 mls/hr Magnesium Oxide (Magox 400 Tab*) 800 mg PO DAILY [facility] Last Admin: 10/22/18 10:52 Dose: Not Given Ondansetron HCl (Zofran Inj*) 4 mg IV Q4H PRN PRN Reason: NAUSEA/VOMITING Last Admin: 10/11/18 01:46 Dose: 4 mg Pantoprazole Sodium (Protonix Tab*) 40 mg PO BID [facility] Last Admin: 10/22/18 10:50 Dose: 40 mg Pharmacy Consult (Zosyn Per Pharmacy*) 1 note FOLLOW UP .ZOSYN PER PHARMACY [facility] Valproic Acid (Depakene Cap(*)) 250 mg PO BID [facility] Last Admin: 10/22/18 10:50 Dose: 250 mg Vital Signs 10/22/18 10/22/18 10/22/18 07:36 08:02 09:47 Temperature Pulse Rate 50 78 Respiratory 20 10 Rate Blood Pressure 86/46 (mmHg) O2 Sat by Pulse Oximetry 10/22/18 10/22/18 10:49 12:08 Temperature 98.0 F Pulse Rate 95 Respiratory 18 Rate Blood Pressure 98/53 106/56 (mmHg) O2 Sat by Pulse 100 Oximetry Intake and Output Last 24 Hours 10/20/18 10/21/18 10/22/18 10/23/18 06:59 06:59 06:59 06:59 Intake Total 0242 320 3748 3370 Output Total 0 0 Balance 5212 405 1525 3370 Intake: IV Fluids 811 LR 811 IVPB 3030 LR 2000 NS (0.9%) 1000 zosyn 30 Oral 1400 360 200 340 Output: Urine 0 0 Other: Estimated Void Large Medium Medium Medium # Bowel Movements 1 1 1 1 Estimated Stool Amount Large Medium Small Large # Voids 3 0 1 Oxygen Devices in Use Now: None Neurology Exam: General: Ill appearing man who has dystonia of the neck towards the left. Neck: Supple Chest: Clear to auscultation bilaterally Cardiovascular: Regular rate and rhythm without murmurs, rubs, gallops Neurological Findings: Sleeping but wakes to minimal stimuli. Alert, and oriented to person. Slurred speech. Cranial Nerve: PERRL, EOM intact, VFF, no nystagmus. Motor: he moved all extremities to command. Sensation: intact to LT/PP bilaterally upper and lower extremities Deep Tendon Reflex: 1+ symmetric in the upper/lower extremities, Babinski - down going Gait: n/a Result Diagrams: 10/22/18 08:10 10/22/18 16:40 Microbiology and Other Data: Microbiology 10/12/18 14:00 Stool Occult Blood (SONNY) - Final Stool Assessment/Plan 1. Acute encephalopathy suspect infectious vs post-ictal state- He has increase in epileptiform discharges without clear electrographic seizures on the most recent EEG. This is probably due to the current infection or lowering the dose of Depakote. I added carbamazepine 200 mg PO twice daily. Hopefully after Clozaril is out of his system, and the sepsis is treated, he may not need two anti-seizure medications mcfp. Continue neuro checks every 4 hours. Continue supportive care. I will re-evaluate the patient in the morning.
[2018-10-22] MEDS: carBAMazepine TAB(*) 200 MG PO SCH (20:30)
[2018-10-23] MEDS: ZOSYN 3.375 GM Q8H per EXTENDED INFUSION IVPB SCH ×8 (00:02→23:29)
--- NOTE | 2018-10-23 00:49 | EEG ---
ELECTROENCEPHALOGRAPHY REPORT: DATE OF SERVICE: 10/22/18 - ROOM #417 DATE READ: 10/22/18 ORDERED BY: Arie Em MD INDICATION: Mr. Castellanos is a 58-year-old man with history of schizoaffective disorder who has pneumonia and increase in confusion. This EEG was obtained to evaluate for epileptiform abnormalities or electrographic seizures. The duration of the study was from 9:03 a.m. to 9:26 a.m. MEDICATIONS: 1. Mag ox. 2. Protonix. 3. Klor-Con. 4. Depakene. 5. Zosyn. 6. Cogentin. 7. Tylenol. 8. Zofran. CLINICAL STATE: Sleeping, predominantly drowsy state. REPORT: The background lacked organization with clearly defined anterior posterior voltage and frequency gradients. There was no posterior dominant rhythm. Instead, the background consisted of diffuse medium amplitude polymorphic 3-5 Hz delta and theta range slowing. There was emergence of some faster frequency with verbal and tactile stimulation. The most prominent feature of this recording were occasional, higher amplitude, sharp and slow wave epileptiform discharges that were independent and at times bisynchronous seen in the right temporal, central parietal, and left temporal regions. This was maximally seen at right T4, C4, left P3 and T5. There were no electrographic seizures. Hyperventilation and photic stimulation were not performed. Single electrode EKG showed a normal sinus rhythm with a rate of 95 beats per minute. IMPRESSION: This is an abnormal predominantly drowsy EEG due to the presence of diffuse reactive slowing with occasional multifocal spike and slow wave epileptiform discharges, predominately emanating from the right temporal region. These findings are suggestive of nonspecific diffuse encephalopathy with superimposed multifocal area of increased epileptogenic potentials emanating from both cerebral hemispheres, but predominantly in the right temporal region. I discussed these results with Dr. Arie Em. We are going to start the patient on carbamazepine 200 mg twice daily. [id number]/[facility] #: [id number] [facility]
--- NOTE | 2018-10-23 02:59 | PN ---
Progress Note - Progress Note Date of Service: 10/23/18 Note: PVR > 500, will straight cath, continue bladder scan, may need root.
[2018-10-23] MEDS ORDERED: NS 0.9% 1000 ML** 1,000 ML IV ONE ×2 (04:54→06:26)
[2018-10-23 06:59] LABS: Hematocrit 29 % (42-52); Hemoglobin 9.4 g/dl (14.0-18.0); Mean Corpuscular HGB Conc 33 g/dl (31-36); Mean Corpuscular Hemoglobin 31 pg (27-31); Mean Corpuscular Volume 94 fL (80-94); Mean Platelet Volume 8.3 fL (7.4-10.4); Platelet Count 233 10^3/ul (150-450); Red Blood Count 3.07 10^6/ul (4.00-5.40); Red Cell Distribution Width 15 % (10.5-15)
[2018-10-23 07:16] LABS: BUN/Creatinine Ratio 24.7 (8-20); Calcium 7.6 mg/dL (8.6-10.3); EGFR African American 105.9 (>60); EGFR Non-African American 87.5 (>60); Magnesium 1.8 mg/dL (1.9-2.7); Phosphorus 2.8 mg/dL (2.5-5.0); Potassium 4.1 mmol/L (3.5-5.0)
[2018-10-23 07:32] LABS: ABS Basophils 0 10^3/ul (0-0.2); ABS Eosinophils 0.1 10^3/ul (0-0.6); ABS Lymphocytes 0.6 10^3/ul (1.0-4.8); ABS Monocytes 1.5 10^3/ul (0-0.8); ABS Neutrophils 7.8 10^3/ul (1.5-7.7); ABS Nucleated RBC 0 10^3/ul; Eosinophil % 0.6 %; Lymphocyte % 6.4 %; Nucleated Red Blood Cells % 0
[2018-10-23] MEDS ORDERED: NS 0.9% 500 ML* 500 ML IV ONE (07:51)
[2018-10-23] MEDS: Pantoprazole TAB * 40 MG TAB PO SCH ×2 (09:29→20:46)
[2018-10-23] MEDS: Magnesium Oxide TAB* 400 MG PO SCH (09:29)
[2018-10-23] MEDS: Valproic Acid CAP(*) 250 MG PO SCH ×2 (09:30→20:46)
[2018-10-23] MEDS: carBAMazepine TAB(*) 200 MG PO SCH ×2 (09:30→20:46)
--- NOTE | 2018-10-23 10:43 | PN ---
Subjective Date of Service: 10/23/18 Length of Stay: 13 Days Neurology is following for episodes of confusion. Interval History: The patient is more awake this morning. His mother is at bedside and reported that he is more cooperative than yesterday. The patient repeats words this morning but is more interactive. He denied any headache, focal weakness, or paresthesia. He had an episode of hypotension yesterday requiring a normal saline bolus. He seems to be tolerating the Tegretol 200 mg PO twice daily. Urine culture: positive for Klebsiella Pneumoniae. Review of Systems: Denied CP, SOB, or palpitations. Past Medical History: Unchanged from Admission Objective Active Medications: Acetaminophen (Tylenol Tab*) 650 mg PO Q4H PRN PRN Reason: FEVER/PAIN Last Admin: 10/21/18 22:43 Dose: 650 mg Benztropine Mesylate (Cogentin Tab*) 2 mg PO 1100 [facility] Last Admin: 10/22/18 10:49 Dose: 2 mg Carbamazepine (Tegretol Tab(*)) 200 mg PO BID [facility] Last Admin: 10/23/18 09:30 Dose: 200 mg Piperacillin Sod/Tazobactam (Sod 3.375 gm/ Sodium Chloride) 100 mls @ 25 mls/ hr IVPB Q8H [facility] Last Admin: 10/23/18 07:32 Dose: 25 mls/hr Magnesium Oxide (Magox 400 Tab*) 800 mg PO DAILY [facility] Last Admin: 10/23/18 09:29 Dose: 800 mg Ondansetron HCl (Zofran Inj*) 4 mg IV Q4H PRN PRN Reason: NAUSEA/VOMITING Last Admin: 10/11/18 01:46 Dose: 4 mg Pantoprazole Sodium (Protonix Tab*) 40 mg PO BID [facility] Last Admin: 10/23/18 09:29 Dose: 40 mg Pharmacy Consult (Zosyn Per Pharmacy*) 1 note FOLLOW UP .ZOSYN PER PHARMACY [facility] Valproic Acid (Depakene Cap(*)) 250 mg PO BID [facility] Last Admin: 10/23/18 09:30 Dose: 250 mg Vital Signs 10/23/18 10/23/18 10/23/18 04:30 06:10 07:33 Temperature Pulse Rate Respiratory Rate Blood Pressure 80/38 78/44 92/40 (mmHg) O2 Sat by Pulse Oximetry 10/23/18 09:54 Temperature Pulse Rate Respiratory Rate Blood Pressure 110/70 (mmHg) O2 Sat by Pulse Oximetry Intake and Output Last 24 Hours 10/21/18 10/22/18 10/23/18 10/24/18 06:59 06:59 06:59 06:59 Intake Total 360 1011 4630 420 Output Total 0 800 Balance 360 1011 3830 420 Intake: IV Fluids 811 1040 LR 811 NS (0.9%) 1040 IVPB 3250 LR 2000 NS (0.9%) 1000 zosyn 250 Oral 360 200 340 420 Output: Urine 0 0 Straight Cath 800 Other: Estimated Void Medium Medium Small # Bowel Movements 1 1 1 1 Estimated Stool Amount Medium Small Large Small # Voids 0 3 Oxygen Devices in Use Now: None Neurology Exam: General: Ill-appearing man who has generalized malaise HEENT: Normocephelic/atraumatic, sclera anicteric, mucous membranes moist Neck: Supple Extremities: No clubbing, cyanosis, or edema Neurological Findings: Drowsy but easily woken. . alert to self, aware of his mother and her name, and was able to repeat that he is in [facility]. He stated that the year was 2018 but did not know the month or date. He has moderate psychomotor slowing and some perseveration of speech. He does not have any catatonia. Cranial Nerve: PERRL, EOM intact, VFF, no nystagmus Motor: he elevated all four extremities symmetrically above gravity and to command. He had mild bilateral upper extremity asterixis. Sensation: intact to LT/PP bilaterally upper and lower extremities. When questioned if he can feel the numbness, he stated "obviously." Deep Tendon Reflex: 2+ symmetric in the upper/lower extremities except for 1+ at the ankles bilaterally. Unable to cooperate to do a finger to nose, two step commands, or assess his gait. Result Diagrams: 10/23/18 06:49 10/23/18 06:49 Microbiology and Other Data: Microbiology 10/12/18 14:00 Stool Occult Blood (SONNY) - Final Stool Assessment/Plan 1. Acute infectious encephalopathy- slowly improving with antibiotic therapy. Urine cultures are positive for K.Pneumonia. 2. Abnormal EEG with intermittent episodes of confusion- concerning for breakthrough seizures. He seems more awake today which can be due to the improvement of his infectious state or reduction of seizures. 3. Asterixis and perseverative state- could be secondary to the infection but Clozaril withdrawal should also be considered. Monitor for catatonia. Recommendation: - Continue both carbamazepine 200 mg twice daily and Depakote 250 mg twice daily. - Consult PT to evaluate and treat - Obtain a repeat ammonia and obtain a carabamazepine level tomorrow morning ( ordered) - Continue neuro checks every 4 hours - Defer treatment of the UTI and bacteremia to the primary team - I will continue to follow. Time spent: 25 minutes of which > 50% was spent obtaining history, examining the patient, education and counseling, and discussing the treatment plan with the patient's mother at bedside.
[2018-10-23] MEDS: Benztropine TAB* 1 MG PO SCH (12:02)
[2018-10-23 16:30] LABS: Urine Appearance Cloudy; Urine Bacteria Absent (Absent); Urine Bilirubin Negative (Negative); Urine Blood 1+ (Negative); Urine Color Yellow; Urine Glucose Negative (Negative); Urine Ketones Trace (Negative); Urine Nitrite Negative (Negative); Urine Protein Negative (Negative); Urine Red Blood Cell 3+(>10/hpf) (Absent); Urine Specific Gravity 1.017 (1.010-1.030); Urine Urobilinogen Positive (Negative); Urine White Blood Cell 2+(11-20/hpf) (Absent)
--- NOTE | 2018-10-23 17:55 | PN ---
Subjective Date of Service: 10/23/18 Interval History: Received additional crystalloids overnight This AM alert but mostly repeats his name when asked different orientation questions denies pain, BLACK, N/V Past Medical History: Unchanged from Admission Objective Active Medications: Acetaminophen (Tylenol Tab*) 650 mg PO Q4H PRN PRN Reason: FEVER/PAIN Last Admin: 10/21/18 22:43 Dose: 650 mg Benztropine Mesylate (Cogentin Tab*) 2 mg PO 1100 [facility] Last Admin: 10/23/18 12:02 Dose: 2 mg Carbamazepine (Tegretol Tab(*)) 200 mg PO BID [facility] Last Admin: 10/23/18 09:30 Dose: 200 mg Piperacillin Sod/Tazobactam (Sod 3.375 gm/ Sodium Chloride) 100 mls @ 25 mls/ hr IVPB Q8H [facility] Last Admin: 10/23/18 16:23 Dose: 25 mls/hr Magnesium Oxide (Magox 400 Tab*) 800 mg PO DAILY [facility] Last Admin: 10/23/18 09:29 Dose: 800 mg Ondansetron HCl (Zofran Inj*) 4 mg IV Q4H PRN PRN Reason: NAUSEA/VOMITING Last Admin: 10/11/18 01:46 Dose: 4 mg Pantoprazole Sodium (Protonix Tab*) 40 mg PO BID [facility] Last Admin: 10/23/18 09:29 Dose: 40 mg Pharmacy Consult (Zosyn Per Pharmacy*) 1 note FOLLOW UP .ZOSYN PER PHARMACY [facility] Valproic Acid (Depakene Cap(*)) 250 mg PO BID [facility] Last Admin: 10/23/18 09:30 Dose: 250 mg Vital Signs - 8 hr 10/23/18 10/23/18 10/23/18 09:54 11:38 12:05 Temperature 98.8 F Pulse Rate 96 Respiratory 14 Rate Blood Pressure 110/70 100/44 100/80 (mmHg) O2 Sat by Pulse 100 Oximetry 10/23/18 15:00 Temperature 98.8 F Pulse Rate 92 Respiratory 16 Rate Blood Pressure 108/53 (mmHg) O2 Sat by Pulse 99 Oximetry Oxygen Devices in Use Now: None Appearance: Sitting up, NAD, holding phone to ear but there is a dial tone Eyes: No Scleral Icterus Ears/Nose/Mouth/Throat: NL Teeth, Lips, Gums, Clear Oropharnyx Neck: NL Appearance and Movements; NL JVP, Trachea Midline Respiratory: Symmetrical Chest Expansion and Respiratory Effort, Clear to Auscultation Cardiovascular: RRR Abdominal: NL Sounds; No Tenderness; No Distention, No Hepatosplenomegaly Lymphatic: No Cervical Adenopathy Extremities: No Edema Neurological: - - Aox1 to self, repeats name for other questions Result Diagrams: 10/23/18 06:49 10/23/18 06:49 Microbiology and Other Data: Microbiology 10/12/18 14:00 Stool Occult Blood (SONNY) - Final Stool Assess/Plan/Problems-Billing 58 yo M admitted with new seizures with stay c/b hematemasis, alterations in awareness as well as GNR bacteremia from urinary source - Patient Problems (1) Sepsis Comment: tachypnea, leukocytosis, hypotension with end organ dysfunction (AMS and AKF) blood and urine cultures with klebsiella c/w zosyn - await sensativities (2) Coffee ground emesis Comment: UGIB EGD (10/12): Large hiatal hernia; severe erosive GERD w/extensive ulceration; likely source of GIB, Pantoprazole 40 mg PO BID (3) Schizoaffective disorder Comment: - Clozapine increased to 50 mg from 25mg (intial dose was 100 mg) but discontinued with lethargy 10/22 - May need psych input for assistance in medication management although newly on carbamazapine and valproate for seizures which may replace cloazapine - d/c cogentin (4) Seizure disorder Comment: - Started on valproate with multiple adjustments 2/2 lethargy and valproate toxicity. - Dosing decreased to 250mg BID in order to maintain therapeutic and not higher levels. -Discussed with neurology 10/22 and this dose is not likely helpful. Started carbamazapime 3/. Levels pending tomorrow along with ammonia - EEG results noted an suggestive of increased seizure potential if not seizure activity. Unclear if this is 2/2 intercurrent infection (5) Hyperkalemia Comment: In setting of AKF 2/2 sepsis IV crystalloids Patiromer Recheck now OK EKG wnl (6) Acute kidney failure Comment: In setting of sepsis improved with IVF (7) DVT prophylaxis Comment: -Continue SCDs Status and Disposition: inpt for IV abx and seizure medication management. Will need OMAR placement
[2018-10-24 06:38] LABS: Hematocrit 26 % (42-52); Hemoglobin 8.7 g/dl (14.0-18.0); Mean Corpuscular HGB Conc 33 g/dl (31-36); Mean Corpuscular Hemoglobin 31 pg (27-31); Mean Corpuscular Volume 92 fL (80-94); Mean Platelet Volume 7.8 fL (7.4-10.4); Platelet Count 222 10^3/ul (150-450); Red Blood Count 2.81 10^6/ul (4.00-5.40); Red Cell Distribution Width 15 % (10.5-15); White Blood Count 5.7 10^3/ul (3.5-10.8)
[2018-10-24 06:51] LABS: BUN/Creatinine Ratio 13.8 (8-20); Calcium 7.7 mg/dL (8.6-10.3); Carbamazepine 6.7 mcg/mL (4.0-12.0); EGFR African American 119.7 (>60); EGFR Non-African American 98.9 (>60); Magnesium 1.7 mg/dL (1.9-2.7); Potassium 3.5 mmol/L (3.5-5.0)
[2018-10-24 06:58] LABS: Immature Granulocytes 4 % (0-9); Lymphocytes % 14 %; Metamyelocytes % 1 % (0-2); Monocytes % 15 %; Neutrophil % 63 %; Variant Lymph % 1 % (0-6)
[2018-10-24 07:00] LABS: ABS Basophils 0.06 10^3/ul (0-0.2); ABS Eosinophils 0.11 10^3/ul (0-0.6); ABS Neutrophils 3.82 10^3/ul (1.5-7.7)
[2018-10-24] MEDS: ZOSYN 3.375 GM Q8H per EXTENDED INFUSION IVPB SCH ×4 (07:18→18:56)
[2018-10-24] MEDS: Pantoprazole TAB * 40 MG TAB PO SCH ×2 (09:24→20:48)
[2018-10-24] MEDS: Magnesium Oxide TAB* 400 MG PO SCH (09:24)
[2018-10-24] MEDS: carBAMazepine TAB(*) 200 MG PO SCH ×2 (09:24→20:48)
[2018-10-24] MEDS: Valproic Acid CAP(*) 250 MG PO SCH ×2 (09:24→20:47)
--- NOTE | 2018-10-24 11:20 | PN ---
Subjective Date of Service: 10/24/18 Length of Stay: 14 Days Neurology is following for confusion. Interval History: He is sitting in a chair in the hallway this morning. Again, more cooperative and awake but he repeats words and phrases. He is able to answer appropriately. He seems to be tolerating the combination of carbamazepine and valproic acid. He is more interactive than the past 3-4 days, which in part can be due to the sepsis treatment. Review of Systems: Denied CP, SOB, or palpitations. Past Medical History: Unchanged from Admission Objective Active Medications: Acetaminophen (Tylenol Tab*) 650 mg PO Q4H PRN PRN Reason: FEVER/PAIN Last Admin: 10/21/18 22:43 Dose: 650 mg Carbamazepine (Tegretol Tab(*)) 200 mg PO BID [facility] Last Admin: 10/24/18 09:24 Dose: 200 mg Cephalexin HCl (Keflex Cap*) 500 mg PO TID [facility] Piperacillin Sod/Tazobactam (Sod 3.375 gm/ Sodium Chloride) 100 mls @ 25 mls/ hr IVPB Q8H [facility] Stop: 10/24/18 23:59 Last Admin: 10/24/18 07:18 Dose: 25 mls/hr Magnesium Oxide (Magox 400 Tab*) 800 mg PO DAILY [facility] Last Admin: 10/24/18 09:24 Dose: 800 mg Ondansetron HCl (Zofran Inj*) 4 mg IV Q4H PRN PRN Reason: NAUSEA/VOMITING Last Admin: 10/11/18 01:46 Dose: 4 mg Pantoprazole Sodium (Protonix Tab*) 40 mg PO BID [facility] Last Admin: 10/24/18 09:24 Dose: 40 mg Pharmacy Consult (Zosyn Per Pharmacy*) 1 note FOLLOW UP .ZOSYN PER PHARMACY [facility] Valproic Acid (Depakene Cap(*)) 250 mg PO BID [facility] Last Admin: 10/24/18 09:24 Dose: 250 mg Vital Signs 10/23/18 10/23/18 10/23/18 11:38 12:05 15:00 Temperature 98.8 F 98.8 F Pulse Rate 96 92 Respiratory 14 16 Rate Blood Pressure 100/44 100/80 108/53 (mmHg) O2 Sat by Pulse 100 99 Oximetry 10/23/18 10/23/18 10/23/18 19:38 20:00 20:04 Temperature 98.0 F Pulse Rate 129 104 Respiratory 20 20 Rate Blood Pressure 110/47 (mmHg) O2 Sat by Pulse 99 Oximetry 10/23/18 10/24/18 22:06 02:57 Temperature 98.0 F 97.1 F Pulse Rate 88 94 Respiratory 16 18 Rate Blood Pressure 125/55 112/64 (mmHg) O2 Sat by Pulse 100 92 Oximetry Intake and Output Last 24 Hours 10/22/18 10/23/18 10/24/18 10/25/18 06:59 06:59 06:59 06:59 Intake Total 1011 4630 3870 900 Output Total 800 1785 Balance 1011 3830 2085 900 Intake: IV Fluids 811 1040 2520 LR 811 NS (0.9%) 1040 20 Valproic Acid 2500 IVPB 3250 210 LR 2000 NS (0.9%) 1000 zosyn 250 210 Oral 341 251 5105 900 Output: Urine 0 0 Jordan 1050 Straight Cath 800 Residual 375 Jordan 16 Fr 375 Post Void Residual 360 Other: Estimated Void Medium Small # Bowel Movements 1 1 1 1 Estimated Stool Amount Small Large Small Medium # Voids 0 3 Oxygen Devices in Use Now: None Neurology Exam: General: Ill-appearing man who has generalized malaise. HEENT: Normocephelic/atraumatic, sclera anicteric, mucous membranes moist Neck: Supple Extremities: No clubbing, cyanosis, or edema Neurological Findings: He is awake and cooperative. He smiled to examiners and nearby nurse students. He is alert to self, but not place or time. He has moderate psychomotor slowing and limited cooperation. When told he was in [facility], he perseverated the location. Cranial Nerve: PERRL, EOM intact, VFF, no nystagmus Motor: he elevated all four extremities symmetrically above gravity and to command. Asterixis resolved. Sensation: intact to LT/PP bilaterally upper and lower extremities. When questioned if he can feel the numbness, he stated "obviously." Deep Tendon Reflex: 2+ symmetric in the upper/lower extremities except for 1+ at the ankles bilaterally. Unable to cooperate to do a finger to nose, two step commands, or assess his gait. Result Diagrams: 10/24/18 06:20 10/24/18 06:20 Microbiology and Other Data: Microbiology 10/12/18 14:00 Stool Occult Blood (SONNY) - Final Stool Assessment/Plan 1. Acute infectious encephalopathy- slowly improving with antibiotic therapy. Urine cultures are positive for K.Pneumonia. 2. Abnormal EEG with intermittent episodes of confusion- concerning for breakthrough seizures. He seems more awake today which can be due to the improvement of his infectious state or reduction of complex partial seizures. 3. Perseverated speech- could be secondary to the infection but Clozaril withdrawal should also be considered. Monitor for catatonia. Recommendation: - Continue both carbamazepine 200 mg twice daily and Depakote 250 mg twice daily. Levels are within normal range. - PT to evaluate and treat - Continue neuro checks every 4 hours - Defer treatment of the UTI and bacteremia to the primary team - No need for further testing as his overall cognition is slowly improving. - Discussed with the primary team. I will sign off but please contact us for any questions or concerns.
--- NOTE | 2018-10-24 12:02 | CONS ---
CONSULTATION REPORT: DATE OF CONSULT: 10/24/18 REQUESTING PHYSICIAN: Dr. Villarreal. CONSULTING SERVICE: Infectious Disease. REASON FOR CONSULT: Bacteremia. IMPRESSION: 1. Klebsiella pneumoniae bacteremia due to urinary tract infection in the setting of urinary retention. He has defervesced with antibiotics and Jordan catheter placement. 2. Seizure disorder with recent seizure versus syncope. 3. Schizophrenia. RECOMMENDATIONS: Maintain Jordan catheter with Urology followup. Consider alpha jono if he can tolerate it. He has had 48 hours of Zosyn and has defervesced. Change him to Keflex 500 mg by mouth 3 times a day to start tomorrow to complete 10- day course total of antibiotics. HISTORY OF PRESENT ILLNESS: This is a 58-year-old man who had been admitted with syncope versus seizure in the setting of schizophrenia and some difficulty in obtaining much history from him. He had apparently been doing well here and then on the night of 10/22/18, had some tachycardia, hypotension, had a leukocytosis. Urinalysis showed leukocyte esterase and white cells. He was started on Zosyn. Blood and urine cultures were sent. They came back positive for Klebsiella pneumoniae. He has defervesced since then, has had no fevers, chills, sweats. He was tachycardic briefly overnight last night, but has settled back down into the 80s today. He is apparently back to his baseline mental status. That does include inability to give much history on what happened to him here. He did have a Jordan catheter placed yesterday. The night of his tachycardia, he had a straight catheter placed with 1500 cc of cloudy urine. Up until that point, he had been noted to be incontinent of urine and some adult diapers. He straight catheterized again the following day and because of 800 cc present, he had a Jordan catheter placed. PAST MEDICAL HISTORY: 1. Schizophrenia. 2. Seizure disorder. 3. Amnesia. 4. Urge incontinence. ALLERGIES: No known drug allergies. MEDICATIONS: 1. Tylenol. 2. Carbamazepine. 3. Zofran. 4. Pantoprazole. 5. Zosyn. 6. Valproic acid. SOCIAL HISTORY: Lives at [place]. Nonsmoker. FAMILY HISTORY: No recurrent infections. REVIEW OF SYSTEMS: Unobtainable given his mental status. PHYSICAL EXAM: Vital Signs: Temperature 36, heart rate 90, respiratory rate 18 , blood pressure 112/64, oxygen saturation 92% on room air. In general, he is awake, not in distress. Neurologic: He answers some questions yes or no. Follows some commands. Moves all extremities. HEENT: There is no conjunctival hemorrhage. Oropharynx without lesions. Neck is supple without mass. Heart is regular rate and rhythm without murmurs, rubs, or gallops. Lungs are clear to auscultation bilaterally. Abdomen: Soft, nontender, nondistended. There are bowel sounds present. Genitourinary: There is a Jordan catheter present. Skin: There is no rash or hemorrhage. Musculoskeletal : There is no spine tenderness to palpation. LABORATORY DATA: White blood cell count 5, hemoglobin 8, platelets 222. Creatinine is 0.8. Please see impressions and recommendations outlined above, which I have discussed with Dr. Villarreal. Thanks for asking me to see Mr. Castellanos in consultation. [id number]/CPS #: [id number] MTDD
--- NOTE | 2018-10-24 15:10 | PN ---
Subjective Date of Service: 10/24/18 Interval History: Pt is a very poor historian, seen with mother by the bedside Chang pain /SOB Past Medical History: Unchanged from Admission Objective Active Medications: Acetaminophen (Tylenol Tab*) 650 mg PO Q4H PRN PRN Reason: FEVER/PAIN Last Admin: 10/21/18 22:43 Dose: 650 mg Carbamazepine (Tegretol Tab(*)) 200 mg PO BID [facility] Last Admin: 10/24/18 09:24 Dose: 200 mg Cephalexin HCl (Keflex Cap*) 500 mg PO TID [facility] Piperacillin Sod/Tazobactam (Sod 3.375 gm/ Sodium Chloride) 100 mls @ 25 mls/ hr IVPB Q8H [facility] Stop: 10/24/18 23:59 Last Admin: 10/24/18 07:18 Dose: 25 mls/hr Magnesium Oxide (Magox 400 Tab*) 800 mg PO DAILY [facility] Last Admin: 10/24/18 09:24 Dose: 800 mg Ondansetron HCl (Zofran Inj*) 4 mg IV Q4H PRN PRN Reason: NAUSEA/VOMITING Last Admin: 10/11/18 01:46 Dose: 4 mg Pantoprazole Sodium (Protonix Tab*) 40 mg PO BID [facility] Last Admin: 10/24/18 09:24 Dose: 40 mg Pharmacy Consult (Zosyn Per Pharmacy*) 1 note FOLLOW UP .ZOSYN PER PHARMACY [facility] Tamsulosin HCl (Flomax Cap*) 0.4 mg PO DAILY [facility] Valproic Acid (Depakene Cap(*)) 250 mg PO BID [facility] Last Admin: 10/24/18 09:24 Dose: 250 mg Vital Signs - 8 hr 10/24/18 10/24/18 10/24/18 07:48 08:00 11:05 Temperature 97.4 F 98.1 F Pulse Rate 92 95 Respiratory 12 20 12 Rate Blood Pressure 138/70 109/82 (mmHg) O2 Sat by Pulse 98 99 Oximetry Oxygen Devices in Use Now: None Appearance: 58 yo M in NAD, oriented to self only, pleasant and conversational Eyes: No Scleral Icterus, PERRLA Ears/Nose/Mouth/Throat: NL Teeth, Lips, Gums, Mucous Membranes Moist Neck: NL Appearance and Movements; NL JVP, Trachea Midline Respiratory: Symmetrical Chest Expansion and Respiratory Effort, Clear to Auscultation Cardiovascular: NL Sounds; No Murmurs; No JVD, RRR Abdominal: NL Sounds; No Tenderness; No Distention Lymphatic: No Cervical Adenopathy Extremities: No Edema, No Clubbing, Cyanosis Skin: No Rash or Ulcers, No Nodules or Sclerosis Neurological: NL Muscle Strength and Tone Result Diagrams: 10/24/18 06:20 10/24/18 06:20 Microbiology and Other Data: Microbiology 10/12/18 14:00 Stool Occult Blood (SONNY) - Final Stool Assess/Plan/Problems-Billing 58 yo M with h/o schizophrenia presented with seizures, developed coffee ground emesis - Patient Problems (1) Seizure disorder Comment: -new due to infectious encephalopathy with Klebsiella bacteremia -Started on valproate with multiple adjustments 2/2 lethargy and valproate toxicity. - Dosing decreased to 250mg BID in order to maintain therapeutic and not higher levels. - Started carbamazapime 10/22. - neuro signed off. (2) Sepsis Comment: tachypnea, leukocytosis, hypotension with end organ dysfunction (AMS and AKF) at admission blood and urine cultures with Klebsiella Pt had acute U retention with post void residuals up to 1500 ml. appreciate ID's receommendations (3) Acute urinary retention Comment: suspect the cause of pt's UTI/sepsis Plan to cont Jordan for outpatient urology eval. Flomax started 10/23/18 (4) Acute kidney failure Comment: In setting of sepsis resolved with IVF (5) Coffee ground emesis Comment: UGIB EGD (10/12): Large hiatal hernia; severe erosive GERD w/extensive ulceration; likely source of GIB, Pantoprazole 40 mg PO BID (6) DVT prophylaxis Comment: -Continue SCDs no anticoagulants due to UGI bleed (7) Hyperkalemia Comment: In setting of AKF 2/2 sepsis IV crystalloids Patiromer resolved (8) Schizoaffective disorder Comment: - Clozapine increased to 50 mg from 25mg (intial dose was 100 mg) but discontinued with lethargy 10/22 - May need psych input for assistance in medication management although newly on carbamazapine and valproate for seizures which may replace cloazapine - d/c cogentin Status and Disposition: inpt for IV abx and seizure medication management. Will need OMAR placement
[2018-10-24] MEDS ORDERED: Magnesium Sulfate 2 GM IV* 2 GM/50 ML BAG IVPB ONE (15:13)
[2018-10-24] MEDS ORDERED: CloZAPine TAB* 25 MG TAB PO ONE (17:12)
[2018-10-24] MEDS: Tamsulosin CAP* 0.4 MG PO SCH (17:29)
[2018-10-24 21:42] LABS: Free Valproic Acid 11 mcg/mL (5 - 25)
[2018-10-25] MEDS: ZOSYN 3.375 GM Q8H per EXTENDED INFUSION IVPB SCH ×2 (00:04)
[2018-10-25 06:55] LABS: Hematocrit 28 % (42-52); Hemoglobin 9.4 g/dl (14.0-18.0); Mean Corpuscular HGB Conc 34 g/dl (31-36); Mean Corpuscular Hemoglobin 31 pg (27-31); Mean Corpuscular Volume 91 fL (80-94); Mean Platelet Volume 7.6 fL (7.4-10.4); Platelet Count 335 10^3/ul (150-450); Red Blood Count 3.08 10^6/ul (4.00-5.40); Red Cell Distribution Width 15 % (10.5-15); White Blood Count 8.2 10^3/ul (3.5-10.8)
[2018-10-25 07:07] LABS: BUN/Creatinine Ratio 9.9 (8-20); Calcium 8.2 mg/dL (8.6-10.3); EGFR Non-African American 97.5 (>60); Magnesium 2.1 mg/dL (1.9-2.7); Potassium 3.9 mmol/L (3.5-5.0)
[2018-10-25 08:40] LABS: Immature Granulocytes 11 % (0-9); Lymphocytes % 8 %; Metamyelocytes % 3 % (0-2); Monocytes % 11 %; Myelocytes % 7 % (0-1); Neutrophil % 64 %; Variant Lymph % 1 % (0-6)
[2018-10-25 08:42] LABS: ABS Neutrophils 6.2 10^3/ul (1.5-7.7)
[2018-10-25 08:43] LABS: ABS Basophils 0.32 10^3/ul (0-0.2); ABS Eosinophils 0.08 10^3/ul (0-0.6)
[2018-10-25] MEDS ORDERED: CloZAPine TAB* 25 MG TAB PO SCH (09:00)
[2018-10-25] MEDS: Tamsulosin CAP* 0.4 MG PO SCH (09:48)
[2018-10-25] MEDS: carBAMazepine TAB(*) 200 MG PO SCH (09:48)
[2018-10-25] MEDS: Valproic Acid CAP(*) 250 MG PO SCH (09:48)
[2018-10-25] MEDS: Cephalexin CAP* 500 MG PO SCH ×2 (09:48→14:40)
[2018-10-25] MEDS: Pantoprazole TAB * 40 MG TAB PO SCH (09:48)
[2018-10-25] MEDS: Magnesium Oxide TAB* 400 MG PO SCH (09:48)
[2018-10-25 12:29] VITALS: BP 100/33
--- NOTE | 2018-10-25 15:12 | DS ---
CC: Dr. Brina Evangelista; Dr. Chavira; Dr. Jefferson; Dr. Lucia; Dr. Wellington; Dr. Gomez; Dr. Mcdaniels; Dr. Harrington, Psychiatry; Dr. Weaver, Infectious Diseases * DISCHARGE SUMMARY: DATE OF ADMISSION: 10/10/18 DATE OF DISCHARGE: 10/25/18 PRIMARY CARE PROVIDER: Dr. Brina Evangelista. DISCHARGE DIAGNOSES: 1. New onset partial complex seizures. 2. Klebsiella pneumoniae bacteremia with source being urinary tract infection. 3. Acute urinary retention. The patient required Jordan and he is going to be discharged home with a Jordan catheter in place. 4. Anemia due to acute gastrointestinal hemorrhage status post 1 unit packed red blood cell transfusion. 5. Acute upper gastrointestinal bleed due to severe gastroesophageal reflux disease, hiatal hernia, as well as esophageal erosions. 6. Acute kidney injury due to likely urinary retention as mentioned above. SECONDARY DIAGNOSES: 1. History of schizophrenia. 2. History of depression. 3. History of amnesia. 4. History of urge incontinence. MEDICATIONS AT DISCHARGE: Include: 1. Valproic acid 250 mg b.i.d. 2. Flomax 0.4 mg daily. 3. Protonix 40 mg b.i.d. 4. Antivert 25 mg t.i.d. p.r.n. 5. Mag-Ox 800 mg daily. 6. Clozapine 25 mg daily. 7. Keflex 500 mg 3 times a day for total for 8 days, then stop. 8. Tegretol 200 mg b.i.d. 9. Zofran 4 mg every 8 hours p.r.n. CONSULTATIONS DURING THE HOSPITAL STAY: Included Dr. Chavira, Dr. Jefferson, and Dr. Lucia from Neurology; Dr. Wellington, Gastroenterology; and Dr. Weaver, Infectious Diseases. PROCEDURES PERFORMED: Included, upper endoscopy performed on 10/12/18 for the patient with coffee-ground emesis by Dr. Wellington with impression: "Large hiatal hernia. Severe erosive gastroesophageal reflux disease with an extensive ulceration. This is clearly consistent with being the source of the coffee-ground emesis. Whether or not it would benefit enough to serve as a nitrogen source to raise BUN to 60 is difficult to say. There is no active bleeding now and it would be unusual situation in the face of rehydration but no other source is evident and he has had no melena and will re-scope in 6 weeks to confirm improving trend." LABORATORY DATA AND STUDIES PERFORMED DURING THE HOSPITAL STAY: Included on 04/07, white blood cell count 8.2, hemoglobin of 9.5, hematocrit of 28, and platelets of 335. Sodium was 137, potassium 3.9, chloride 103, carbon dioxide 24, BUN is 8, creatinine 0.8. Ammonia was noted to be 54 on 10/24/18. Magnesium level was 2.1 at discharge. Valproic acid level total was 51 on 10/22, carbamazepine level was 6.7 on 10/24/18. Microbiology test showed influenza testing was negative. Urine cultures as well as blood cultures obtained on 10/21/18 grew Klebsiella pneumoniae. Most recent EEG obtained on 10/14/18. Impression: "This awake EEG is abnormal because of diffuse slowing of background consistent with encephalopathy, but nonspecific as to the etiology. No subclinical seizures were noted." Initial EEG obtained on 10/10/18, impression: "Abnormal EEG due to spike and slow wave discharges emanating from the right hemisphere, not infrequently throughout the recording. These may correlate with some facial twitching, but there are no other ictal events during the recording. This tracing is compatible with the diagnosis of focal onset of seizure disorder." HOSPITALIZATION COURSE: Simeon Castellanos is a 58-year-old male with history of schizophrenia who lives in a residential unit for the patient's with psychiatric conditions called [facility]. The patient has a mother who lives nearby and has visited the patient in the hospital almost on a daily basis. The patient presented to the hospital on 10/10/18 complaining of seizures. He had alternation of the mental status with the seizures at the [facility] where he lives. He had intermittent chronic twitches of the left face and left hand. Dr. Chavira who is his neurologist saw him and noted that the EEG obtained showed focal seizures. The patient was started on antiepileptic treatment with good results. Over the course of the patient's hospital stay, he antiepileptics have to be adjusted. His psychiatric medications including Clozaril and Cogentin were stopped due to the patient noted to be sedated and encephalopathic. By the time of discharge, Clozaril was started at one-forth of the dose that he had been taking before mostly due to the patient being awake and exhibiting some hyperactivity in the evenings. Eventually, the patient's mental status normalized on Depakote 250 mg twice a day and Tegretol 200 mg twice a day that is supposed to be continued at discharge. Throughout the patient's hospital stay, he was noted to have positive blood cultures with Klebsiella pneumoniae. His urine cultures also grew Klebsiella pneumoniae and he was noted to have an episode of acute kidney injury with acute urinary retention. He had over 1500 cc of urine residual and Jordan was inserted. Due to a large volume of postvoid residual and due to the patient still being currently treated for ongoing UTI, the decision was made for the patient to continue with Jordan catheter and to be seen by Urology as outpatient. The patient was planned to see a urologist for urge incontinence in the summer of 2017, but apparently missed the 2 rescheduled appointments. After the patient's seizures normalized and his infection was treated with a couple of days of Zosyn, the patient was seen by Dr. Weaver for further recommendations of antibiotics treatment. Dr. Weaver recommended for the patient to continue on Keflex for total of 8 days to complete a total of 10 days of antibiotic treatment. I curbsided the psychiatrist superintendent recreation due to the patient being on Clozaril 100 mg daily previously that was held for a few days and then restarted at 25 mg. The psychiatrist agrees with restarting the Clozaril at 25 mg but due to that the Clozaril was stopped and restarted, the patient needs to have CBCs on a weekly basis for the next 6 months and that CBC needs to be with differential to make sure that the patient does not develop leukopenia. In regards to the patient's urinary retention, the patient is being discharged with Jordan Catheter in place. I spoke with Dr. Gomez's office and the office will call [facility] with the scheduled appointment for followup and likely discontinuation of Jordan as an outpatient. Dr. Chavira's office needs to be called by [facility] for a followup appointment in regards to the patient's new onset seizures and followup medications. The [facility] facility is also asked to call Dr. Harrington, the patient's psychiatrist to schedule a followup appointment within the next couple of weeks. Please also note that the patient had an episode of coffee-ground emesis and anemia with the lowest hemoglobin of 8.7. The patient was transfused 1 unit of packed red blood cells on 10/12/18. Dr. Wellintgon performed an upper endoscopy and showed severe gastroesophageal reflux disease with erosive esophagitis and ulceration. The patient was started on proton pump inhibitor twice a day with good results and no recurrence of bleeding. Dr. Wellington recommended for the patient to follow up with his office to schedule an upper endoscopy approximately 6 weeks later. During the patient's hospital stay, he became very deconditioned. He is still conversational but rather confused. He was deemed to be a good candidate for rehabilitation facility. He is going to go to [facility] today. PHYSICAL EXAM AT THE TIME OF DISCHARGE: Blood pressure of 110/53, heart rate of 84 and regular, respiratory rate 16, oxygen saturation 98% on room air, temperature 98.2. General: The patient is a very pleasant 58-year-old male who is oriented to self. He recognizes his mother sitting by his bedside. He stated that he knows where he is but he is unable to tell me that he is in the hospital. He is pleasant and cooperative with evaluation. HEENT: Head atraumatic, normocephalic. Eyes: Pupils equal, reactive to light and accommodation. Oropharynx is clear. Mucosa is moist. Neck: Supple. No JVD. No bruits bilaterally. Cardiovascular: Regular rate and rhythm. No murmur. Respiratory: Clear to auscultation bilaterally. Abdomen: Soft, nontender. Bowel sounds present in all 4 quadrants. Extremities: There is no edema. Pulses are +2 bilaterally. No clubbing or cyanosis. On neuro evaluation, speech is clear. Cranial nerves II through XII grossly intact. Motor strength is 5/5 bilaterally. Please note, additional radiology exams obtained during the hospital stayincluded: Portable chest x-ray obtained at admission, impression: "No active cardiopulmonary disease." Brain CT obtained on admission, impression: "No acute intracranial pathology." Abdomen and bladder ultrasound obtained on 10/24/18, impression: "Sonographically normal kidneys. Findings of known cystitis." Please also note that furthermore in the body of the report it shows that the bladder is thick walled without focal nodularity with an indwelling Jordan with moderate internal debris. Bilateral ureteral jets were identified. Please note that this is a short summary of the patient's long and complicated hospitalization. Please refer to further medical records for details. TIME SPENT: Approximately 45 minutes was spent in preparation of the patient's discharge. [id number]/[facility] #: [id number] MANDY
--- NOTE | 2018-10-25 15:32 | PN ---
Progress Note - Progress Note Date of Service: 10/25/18 SOAP: Subjective: CC: UTI HPI: 58 year old man with urinary retention and Klebsiella urinary tract infection; has root catheter now. No diarrhea per RN. He can't give HPI or ROS. Objective: Vital Signs Temp 37.2 C 10/25/18 11:40 Pulse 105 10/25/18 11:40 Resp 14 10/25/18 11:40 BP 100/33 10/25/18 11:40 Pulse Ox 99 10/25/18 11:40 Intake & Output 10/24/18 10/25/18 10/25/18 18:59 06:59 18:59 Intake Total 1840 200 340 Output Total 400 1800 Balance 1440 -1600 340 Intake: IV Fluids 100 zosyn 100 IVPB 200 zosyn 200 Oral 1740 0 340 Output: Root 400 1800 Other: # Bowel Movements 1 0 1 Estimated Stool Amount Medium Medium Gen:awake, no distress HEENT: no thrush Heart:RRR no murmur Lungs:CTA BL Abd:+BS NTND soft Skin: no rash : root catheter Laboratory Results - last 24 hr 10/22/18 10/25/18 10/25/18 08:10 06:36 06:36 WBC 8.2 RBC 3.08 L Hgb 9.4 L Hct 28 L MCV 91 MCH 31 MCHC 34 RDW 15 Plt Count 335 MPV 7.6 Neut % (Auto) Not Reportable Lymph % (Auto) Not Reportable Bulloch % (Auto) Not Reportable Eos % (Auto) Not Reportable Baso % (Auto) Not Reportable Absolute Neuts (auto) Not Reportable Absolute Lymphs (auto) Not Reportable Absolute Monos (auto) Not Reportable Absolute Eos (auto) Not Reportable Absolute Basos (auto) Not Reportable Absolute Nucleated RBC Not Reportable Immature Gran % 11 H Neutrophils % 64 Band Neutrophils % 1 Lymphocytes % 8 Reactive Lymphs % 1 Monocytes % 11 Eosinophils % 1 Basophils % 4 Metamyelocytes % 3 H Myelocytes % 7 H Nucleated RBC % Not Reportable Abs Neuts (Manual) 6.2 Abs Lymphs (Manual) 0.7 L Abs Monocytes (Manual) 0.9 H Absolute Eos (Manual) 0.08 Abs Basophils (Manual) 0.32 H Normal RBC Morphology Normal Sodium 137 Potassium 3.9 Chloride 103 Carbon Dioxide 24 Anion Gap 10 BUN 8 Creatinine 0.81 Est GFR ( Amer) 118.0 Est GFR (Non-Af Amer) 97.5 BUN/Creatinine Ratio 9.9 Glucose 92 Calcium 8.2 L Magnesium 2.1 Free Valproic Acid 11 Total Valproic Acid 51 Microbiology 10/23/18 16:10 Urine Culture - Final Urine No Growth (<1,000 CFU/mL) Assessment: 1. Klebsiella UTI and bacteremia due to chronic urinary retention 2. syncope 3. schizophrenia Plan: 1. continue keflex 500 mg po tid to complete course; root for retention, outpatient evaluation with urology. Discussed with Dr Villarreal
== END 2018-10-25 15:10 | DRG 100 ==
LOC: ED 07:24 → MEDTELE 13:05 → OBSVTOIN 10-11 16:00 → ICU 10-12 11:59 → MEDTELE 10-13 21:13 → MED 10-21 17:31
PROVIDERS: ADMIT Internal Medicine; ATTEND Internal Medicine
PROC: 30233N1 Transfusion of Nonautologous Red Blood Cells into Peripheral Vein, Percutaneous Approach (ICD-10-PCS; principal; 2018-10-12)
PROC: 0DJ08ZZ Inspection of Upper Intestinal Tract, Via Natural or Artificial Opening Endoscopic (ICD-10-PCS; 2018-10-12)
PROC: 4A10X4Z Monitoring of Central Nervous Electrical Activity, External Approach (ICD-10-PCS; 2018-10-22)
PROC: 0T9B70Z Drainage of Bladder with Drainage Device, Via Natural or Artificial Opening (ICD-10-PCS; 2018-10-24)
DX: G40.209 Localization-related (focal) (partial) symptomatic epilepsy and epileptic syndromes with complex partial seizures, not intractable, without status epilepticus (principal); K22.11 Ulcer of esophagus with bleeding; J45.909 Unspecified asthma, uncomplicated; F25.1 Schizoaffective disorder, depressive type; R41.3 Other amnesia; H26.9 Unspecified cataract; R40.2412 Glasgow coma scale score 13-15, at arrival to emergency department; K44.9 Diaphragmatic hernia without obstruction or gangrene; K21.9 Gastro-esophageal reflux disease without esophagitis; I95.9 Hypotension, unspecified; E87.6 Hypokalemia; A41.50 Gram-negative sepsis, unspecified; N39.0 Urinary tract infection, site not specified; G93.49 Other encephalopathy; N17.9 Acute kidney failure, unspecified; B96.1 Klebsiella pneumoniae [K. pneumoniae] as the cause of diseases classified elsewhere; R33.9 Retention of urine, unspecified; D50.0 Iron deficiency anemia secondary to blood loss (chronic); E87.5 Hyperkalemia; Z87.891 Personal history of nicotine dependence; Z91.14 Patient's other noncompliance with medication regimen
CPT/HCPCS: 36415; 70450; 71045; 71046; 76770; 80048; 80053; 80156; 80164; 80165; 80307; 80320; 81003; 81015; 82140; 82272; 82550; 83605; 83735; 83880; 84100; 84300; 84443; 84484; 85025; 85027; 85060; 85610; 85730; 86850; 86900; 86901; 86922; 87040; 87077; 87086; 87186; 87205; 87641; 93005; 95816; 95819; 99156; 99284; A9270-GY; G0480; G8978-GP-CL; G8979-GP-CI; G8987-GO-CL; G8988-GO-CI; J0610; J0696; J1650; J2060; J2250; J2405; J2543; J3010; J3475; P9040

== ENCOUNTER 2019-07-31 13:57 | Observation (INO) | payer MEDICARE, MEDICAID ==
--- NOTE | 2019-07-31 15:11 | ED ---
Lower Extremity - HPI Summary HPI Summary: This pt is a 59 y/o male presenting to [facility] referred by his PCP c/o bilateral leg swelling and redness for the past 1 week. Pt reports his PCP, Dr. Evangelista, sent him to the ED. He notes he also has weeping from his bilateral legs. Denies fever, chills, chest pain, SOB. He states he had tooth extraction 3 days ago and is taking antibiotics for this currently. - History of Current Complaint Chief Complaint: EDExtremityLower Stated Complaint: SWELLING/REDNESS ON RIGHT LEG Time Seen by Provider: 07/31/19 14:55 Hx Obtained From: Patient Mechanism Of Injury: Other - no trauma or injury Onset of Pain: Days - 7 Onset/Duration: Still Present - 1 Severity Currently: Moderate Pain Intensity: 0 Pain Scale Used: 0-10 Numeric Timing: Lasting Weeks - 1 Location: Is Discrete @ - bilateral legs Associated Signs And Symptoms: Positive: Swelling, Redness. Negative: Fever, Weakness Aggravating Factor(s): Nothing Alleviating Factor(s): Nothing Able to Bear Weight: Yes - Allergies/Home Medications Allergies/Adverse Reactions: Allergies Allergy/AdvReac Type Severity Reaction Status Date / Time bee venom protein (honey bee) Allergy Difficulty Verified 07/31/19 14:14 Breathing Home Medications: Home Medications Cariprazine (NF) [Vraylar (Nf)] 3 mg PO DAILY 07/31/19 [History Confirmed ] Cephalexin CAP* [Keflex CAP*] 500 mg PO TID 07/31/19 [History Confirmed 07/31/19 ] Divalproex Sprinkle CAP* [Depakote Sprinkle CAP*] 250 mg PO 0800,1600 07/31/19 [ History Confirmed 07/31/19] Ibuprofen TAB* [Motrin TAB* 800 MG] 800 mg PO .Q6-8H PRN 07/31/19 [History Confirmed 07/31/19] Magnesium Oxide TAB* [MagOx 400 TAB*] 800 mg PO DAILY 07/31/19 [History Confirmed 07/31/19] Pantoprazole TAB * [Protonix TAB*] 40 mg PO BID 07/31/19 [History Confirmed 08/07] carBAMazepine TAB(*) [TEGretol TAB(*)] 200 mg PO BID 07/31/19 [History Confirmed 07/31/19] PMH/Surg Hx/FS Hx/Imm Hx Endocrine/Hematology History: Denies: Hx Anticoagulant Therapy, Hx Diabetes Cardiovascular History: Denies: Hx Cardiac Arrest, Hx Hypertension, Hx Pacemaker/ICD, Other Cardiovascular Problems/Disorders Respiratory History: Reports: Hx Asthma - NO INHALERS NEEDED Denies: Other Respiratory Problems/Disorders GI History: Reports: Hx Gall Bladder Disease Denies: Other GI Disorders History: Denies: Hx Dialysis Musculoskeletal History: Denies: Other Musculoskeletal History Sensory History: Reports: Hx Cataracts - NU, Hx Contacts or Glasses - READING Denies: Hx Deafness, Hx Hearing Aid Opthamlomology History: Reports: Hx Cataracts - NU, Hx Contacts or Glasses - READING Neurological History: Reports: Hx Seizures, Other Neuro Impairments/Disorders - has been evaluated by for seizures in the past, no definite seizure on EEG Psychiatric History: Reports: Hx Schizophrenia, Hx Bipolar Disorder Denies: Hx Panic Disorder - Surgical History Surgical History: Yes Surgery Procedure, Year, and Place: [facility], 2009, [facility] Hx Anesthesia Reactions: No Infectious Disease History: No Infectious Disease History: Denies: Traveled Outside the [place] in Last 30 Days - Family History Known Family History: Positive: Other - Negative malignant hyperthermia, negative anesthesia reaction - Social History Alcohol Use: None Hx Substance Use: No Substance Use Type: Reports: None Hx Tobacco Use: No Smoking Status (MU): Never Smoked Tobacco Review of Systems Negative: Fever, Chills Negative: Chest Pain Negative: Shortness Of Breath Positive: Edema Skin: Other - POSITIVE: weeping from bilateral legs All Other Systems Reviewed And Are Negative: Yes Physical Exam - Summary Physical Exam Summary: VITAL SIGNS: Reviewed. GENERAL: Patient is a well-developed and nourished male who is lying comfortable in the stretcher. Patient is not in any acute respiratory distress. Patient has poor hygiene. HEAD AND FACE: No signs of trauma. No ecchymosis, hematomas or skull depressions. No sinus tenderness. EYES: PERRLA, EOMI x 2, No injected conjunctiva, no nystagmus. EARS: Hearing grossly intact. Ear canals and tympanic membranes are within normal limits. MOUTH: Oropharynx within normal limits. NECK: Supple, trachea is midline, no adenopathy, no JVD, no carotid bruit, no c- spine tenderness, neck with full ROM. CHEST: Symmetric, no tenderness at palpation. LUNGS: Clear to auscultation bilaterally. No wheezing or crackles. CVS: Regular rate and rhythm, S1 and S2 present, no murmurs or gallops appreciated. ABDOMEN: Soft, non-tender. No signs of distention. No rebound, no guarding, and no masses palpated. Bowel sounds are normal. EXTREMITIES: Bilateral lower extremity edema, with redness and weeping. NEURO: Alert and oriented x 3. No acute neurological deficits. Speech is normal and follows commands. SKIN: Dry and warm. Triage Information Reviewed: Yes Vital Signs On Initial Exam: Initial Vitals Temp Pulse Resp BP Pulse Ox 98.9 F 69 18 130/85 99 07/31/19 14:11 07/31/19 14:11 07/31/19 14:11 07/31/19 14:11 07/31/19 14:11 Vital Signs Reviewed: Yes Procedures - Sedation Patient Received Moderate/Deep Sedation with Procedure: No Diagnostics - Vital Signs Vital Signs Temp Pulse Resp BP Pulse Ox 07/31/19 14:11 98.9 F 69 18 130/85 99 - Laboratory Result Diagrams: 07/31/19 16:23 07/31/19 16:23 Lab Statement: Any lab studies that have been ordered have been reviewed, and results considered in the medical decision making process. - Ultrasound No standard instances Ultrasound Interpretation Completed By: Radiologist Summary of Ultrasound Findings: Bilateral lower extremity US IMPRESSION: Deep venous thrombosis of the left peroneal veins. Dr. Gill has reviewed this report. Lower Extremity Course/Dx - Course Assessment/Plan: This pt is a 59 y/o male presenting to [facility] referred by his PCP c/o bilateral leg swelling and redness for the past 1 week. Pt reports his PCP, Dr. Evangelista, sent him to the ED. He notes he also has weeping from his bilateral legs. Denies fever, chills, chest pain, SOB. He states he had tooth extraction 3 days ago and is taking antibiotics for this currently. Blood work without any significant abnormality except for a slight anemia, lactic acid is 2.5, CRP is 10.83. Ultrasound of the lower extremities impression: Deep venous thrombosis of the left peroneal veins. In the ED course the patient was given Rocephin. I discussed my physical exam and test results with Dr. Guerrero from the hospitalist services and she agrees to admit the patient to her services. The patient is hemodynamically stable, alert and oriented x 3. - Diagnoses Provider Diagnoses: Cellulitis, DVT (deep venous thrombosis), Bilateral lower extremity edema - Physician Notifications Discussed Care Of Patient With: Oumou Guerrero - hospitalist Time Discussed With Above Provider: 17:18 Instructed by Provider To: Admit As Inpatient Discharge ED - Sign-Out/Discharge Documenting (check all that apply): Patient Departure - Admit to [facility] - Discharge Plan Condition: Stable Disposition: ADMITTED TO [facility] - Billing Disposition and Condition Condition: STABLE Disposition: Admitted to [facility] - Attestation Statements Document Initiated by Charli: Yes Documenting Scribe: Sridevi Vasquez Provider For Whom Charli is Documenting (Include Credential): Rock Gill MD Scribe Attestation: Sridevi Marquez, scribed for Rock Gill MD on 07/31/19 at 2127. Scribe Documentation Reviewed: Yes Provider Attestation: The documentation as recorded by the Sridevi rios accurately reflects the service I personally performed and the decisions made by , Rock Gill MD Status of Scribmichele Document: Viewed
[2019-07-31 16:35] LABS: ABS Basophils 0.1 10^3/ul (0-0.2); ABS Eosinophils 0.1 10^3/ul (0-0.6); ABS Lymphocytes 1.1 10^3/ul (1.0-4.8); ABS Monocytes 0.5 10^3/ul (0-0.8); ABS Neutrophils 4.9 10^3/ul (1.5-7.7); Eosinophil % 1.4 %; Hematocrit 36 % (42-52); Hemoglobin 11.6 g/dL (14.0-18.0); Lymphocyte % 16.1 %; Mean Corpuscular HGB Conc 32 g/dL (31-36); Mean Corpuscular Hemoglobin 24 pg (27-31); Mean Corpuscular Volume 75 fL (80-94); Mean Platelet Volume 7.3 fL (7.4-10.4); Platelet Count 357 10^3/uL (150-450); Red Blood Count 4.83 10^6 /uL (4.18-5.48); Red Cell Distribution Width 18 % (10-15); White Blood Count 6.6 10^3/uL (3.5-10.8)
[2019-07-31 16:55] LABS: Albumin 3.9 g/dL (3.2-5.2); Albumin/Globulin Ratio 1.3 (1-3); BUN/Creatinine Ratio 11.1 (8-20); C Reactive Protein 10.83 mg/L (<8.01); Calcium 8.6 mg/dL (8.6-10.3); EGFR African American 93.3 (>60); EGFR Non-African American 77.1 (>60); Globulin 2.9 g/dL (2-4); Potassium 4.2 mmol/L (3.5-5.0); Total Bilirubin 0.2 mg/dL (0.2-1.0); Total Protein 6.8 g/dL (6.4-8.9); Uric Acid 4.3 mg/dL (4.4-7.6)
[2019-07-31] MEDS ORDERED: cefTRIAXone(*) 1 GM in NS 0.9% 50 ML* 50 ML IVPB ONE (17:23)
[2019-07-31] MEDS ORDERED: Ondansetron INJ* 2 MG/ML VIAL IV PRN (17:59)
[2019-07-31 18:22] LABS: Erythrocyte Sed Rate 16 mm/Hr (0-19)
[2019-07-31 18:25] LABS: % Iron Saturation 6 % (15-55); Iron 26 ug/dL (50-212); Total Iron Binding Capacity 442 mcg/dL (250-450); Transferrin 316 mg/dL (203-362)
[2019-07-31] MEDS ORDERED: Iohexol 350* (CONTRAST) 500 ML MDV IV ONE (18:28)
[2019-07-31 18:45] LABS: Ferritin 10.5 ng/mL (24-336)
[2019-07-31] MEDS: Clindamycin CAP* 150 MG PO SCH (21:07)
[2019-07-31] MEDS: carBAMazepine TAB(*) 200 MG PO SCH (21:07)
[2019-07-31] MEDS: Acetaminophen TAB* 325 MG PO PRN (21:07)
[2019-07-31] MEDS: Pantoprazole TAB * 40 MG TAB PO SCH (21:08)
--- NOTE | 2019-07-31 22:10 | HP ---
CC: Dr. Brina Evangelista * ADMISSION HISTORY AND PHYSICAL: DATE OF ADMISSION: 07/31/19 PRIMARY CARE PROVIDER: Dr. Brina Evangelista. MY ATTENDING WHILE IN THE HOSPITAL: Dr. Teodora Villarreal.* (DICTATED BY RAULITO HERNADEZ) CHIEF COMPLAINT: Bilateral lower extremity swelling x1 week. HISTORY OF PRESENT ILLNESS: Mr. Castellanos is a 59-year-old male with a past medical history significant for schizoaffective disorder, depressive type; complex partial seizures; severe GI bleed related to erosive esophagitis; and Bryan esophagus; who presents to the emergency department on 07/31/19 after being referred from his primary care provider with concern for bilateral lower extremity redness, pain, and swelling, worse in the right than the left, with weeping while on outpatient antibiotics with concern for lower extremity cellulitis not responding to antibiotic therapy. The patient states that approximately 1 week ago he noticed gradual onset right lower extremity swelling followed by left lower extremity swelling. He had weeping in his legs as well. The patient denied any provoking factors such as long immobilization. He states he did have a long immobilization for approximately 2 months while he was at [facility] from October to November of this year, but did not develop any similar symptoms at that time. The patient states it is worse when he walks long distances and better after he rests and keeps his legs up. The patient states he has significant aching pain in his lower extremities. The patient denies any chest pain or shortness of breath. The patient has no known cardiac history. The patient has no recent change in his medications except for being prescribed Augmentin for a tooth extraction on 07/28/19. The patient for this had also been taking ibuprofen and his pain had been well under control. The patient feels like he has gained weight over the last several days and it was noted in his primary care provider's note that she thought he had increased abdominal girth, though he denies that this is the case and that his abdomen looks as it always has. The patient did not have any seizures since October per his neurologist's note and has been stabilized on Tegretol and Depakote therapy. The patient denies any black stools, any blood in his stools , any abnormal bowel habits. No dysuria. No feelings of retention. No fevers , chills. No dyspnea on exertion nor orthopnea. In the emergency department, the patient was found to have a left lower extremity peroneal vein DVT, and due to concern for lower extremity cellulitis as well as new onset DVT and lower extremity edema, we were asked evaluate the patient was admission to the hospital. PAST MEDICAL HISTORY: Schizoaffective disorder, depressive type; urge urinary incontinence; history of partial seizures; Bryan esophagus; GI bleed due to severe erosive esophagitis; history of Klebsiella pneumonia bacteremia due to urinary tract infection. PAST SURGICAL HISTORY: Cholecystectomy in 2008. MEDICATIONS: 1. Tamsulosin 0.4 mg p.o. daily. 2. Magnesium oxide 800 mg p.o. daily. 3. Carbamazepine 200 mg p.o. b.i.d. 4. Pantoprazole 40 mg p.o. b.i.d. 5. Divalproex Sprinkle 250 mg p.o. b.i.d. 6. Cariprazine 3 mg p.o. daily. 7. Ibuprofen 800 mg p.o. q.6-8 hours as needed. 8. Keflex 500 mg p.o. t.i.d. ALLERGIES: BEE VENOM. FAMILY HISTORY: The patient's mother is alive and has arthritis. The patient' s father in 2008 at the age of 79 with an NM. The patient has 2 sisters, who are alive and well. SOCIAL HISTORY: The patient smoked for approximately 5 to 6 years four to six years ago. The patient denies ever abusing alcohol. The patient denies illicit drug use. The patient is retired. The patient used to work in a parking lot. The patient currently lives at [facility]. The patient is not and has no children. The patient's surrogate decision maker will be his mother, Diane Whitfield. REVIEW OF SYSTEMS: A 10-point review of systems was reviewed and is negative except as above in the HPI. PHYSICAL EXAMINATION GENERAL: The patient is a 59-year-old male who appears stated age and sitting comfortably in bed, in no acute distress. VITAL SIGNS: Temperature 98.9, pulse rate 69, respiratory rate 18, oxygen saturation 97% on room air, blood pressure 130/85. HEENT: Head normocephalic, atraumatic. Sclerae anicteric. No conjunctival injection. Nasal mucosa moist. Oral mucosa moist. No pharyngeal erythema, discharge, or exudate. NECK: Supple, nontender. No lymphadenopathy. No carotid bruits auscultated. No JVD. RESPIRATORY: Clear to auscultation bilaterally. No wheezes, rales, or rhonchi. Good air exchange bilaterally. CARDIAC: Regular rate and rhythm. No clicks, murmurs, gallops, or rubs. Pulses are 2+ in the bilateral dorsalis pedis, posterior tibialis, and radial areas. 3+ bilateral lower extremity edema, slightly worse on the right than the left, with erythema and weeping. Small areas consistent with scratches on the bilateral upper calves. ABDOMEN: Soft, nontender, nondistended. Bowel sounds present and normoactive in all 4 quadrants. No hepatosplenomegaly. No abdominal bruits auscultated. No hepatojugular reflux. GENITOURINARY: No suprapubic or CVA tenderness. NEURO: Cranial nerves II through XII intact. No focal deficits. Alert and oriented x3. PSYCHIATRIC: Flat affect. Otherwise pleasant and cooperative. SKIN: Above skin deviations. DIAGNOSTIC STUDIES/LAB DATA: White blood cell count 6.6, hemoglobin 11.6, MCV is 75, platelet count 357. Sodium 138, potassium 4.2, chloride 104, carbon dioxide 25, anion gap 9, BUN 11, creatinine 0.99, glucose 89, lactic acid 2.5, uric acid 4.3, calcium 8.6. Bilirubin 0.2, AST 19, ALT 27, alkaline phosphatase 127. CRP 10.3. Protein 6.8, albumin 3.9, globulin 2.9. Studies: Venous Doppler study of the bilateral lower extremities shows deep vein thrombosis in the left peroneal veins. ASSESSMENT AND PLAN: Impression: Mr. Castellanos is a 59-year-old male with past medical history significant for schizoaffective disorder, seizures, history of gastrointestinal bleeding, and Bryan esophagus who presents to the emergency department with 1 week of bilateral lower extremities swelling and redness, right greater than the left, and found to have a left-sided peroneal vein DVT, who will be admitted to the hospital for anticoagulation and etiologic evaluation of his DVT and lower extremity swelling. 1. Bilateral lower extremity swelling, deep venous thrombosis. The patient's DVT explains the swelling in his left leg, however, the swelling in his right leg is worse than that in the left. The reason for this is unclear, though it suggests a consistent source that may have been a predisposing factor to venostasis and DVT in the left leg. The patient's albumin is normal. The patient's urine is pending, but from previous urine he has not been spilling significant amounts of protein making nephrotic syndrome and cirrhosis less likely. Cor pulmonale related to acute pulmonary embolism would be on the differential given the patient's DVT. This may also be a secondary finding given possible embolization of the patient's right lower extremity DVT. There is a possible superinfection of the right lower extremity weeping areas, though this is less likely and the change is more likely related to a vascular cause. However, given the patient needing coverage for his teeth as well as possible cellulitis, the patient will be started on clindamycin 300 mg 3 times daily. The patient will be monitored closely for adverse effects from this. The patient will be anticoagulated with Eliquis starting with 10 mg twice daily for treatment of acute thrombosis. CT of the chest will be obtained to rule out pulmonary embolism and echocardiogram will assess for low EF possibly contributing to the patient's presentation. The patient's lung exams are unremarkable. 2. History of seizures. The patient is currently stabilized on Tegretol and valproic acid therapy. This will not be changed at this time. 3. Bryan esophagus, GERD. Continue the patient's pantoprazole 40 mg p.o. b.i.d. per recommendations of GI. The patient had mostly healed esophagus from February of this year. 4. Schizoaffective disorder. Continue the patient's Vraylar if available. This will be substituted if needed. the patient's anti-seizure medications also are effective mood stabilizers. 5. DVT prophylaxis. The patient will be on Eliquis. The patient will be monitored closely for bleeding. 6. Iron deficiency anemia. The patient's iron deficiency anemia is likely related to his previous episode of acute blood loss. The patient will be stared on iron therapy when he will be able to tolerate this, likely after the decrease of his Eliquis. 7. Disposition. The patient will be admitted for observation to the hospital. TIME SPENT: Approximately 60 minutes was spent on the admission of this patient , 30 of which was spent [id number] with the patient obtaining history and physical and discussing treatment plan. This plan was discussed with my attending, Dr. Teodora Villarreal, and she is in agreement. RAULITO HERNADEZ [id number]/JARAD #: [id number] MANDY
[2019-07-31] MEDS: Apixaban* 5 MG TAB PO SCH (22:35)
[2019-08-01] MEDS: Acetaminophen TAB* 325 MG PO PRN ×3 (01:07→15:36)
[2019-08-01 04:06] LABS: Urine Appearance Clear; Urine Bilirubin Negative (Negative); Urine Blood Negative (Negative); Urine Color Straw; Urine Glucose Negative (Negative); Urine Ketones Negative (Negative); Urine Nitrite Negative (Negative); Urine Protein Negative (Negative); Urine Specific Gravity 1.032 (1.010-1.030); Urine Urobilinogen Negative (Negative)
[2019-08-01 06:05] LABS: ABS Basophils 0.1 10^3/ul (0-0.2); ABS Eosinophils 0.1 10^3/ul (0-0.6); ABS Lymphocytes 0.9 10^3/ul (1.0-4.8); ABS Monocytes 0.7 10^3/ul (0-0.8); ABS Neutrophils 4.2 10^3/ul (1.5-7.7); Eosinophil % 1.3 %; Hematocrit 32 % (42-52); Hemoglobin 10.3 g/dL (14.0-18.0); Lymphocyte % 14.6 %; Mean Corpuscular HGB Conc 33 g/dL (31-36); Mean Corpuscular Hemoglobin 24 pg (27-31); Mean Corpuscular Volume 75 fL (80-94); Mean Platelet Volume 7.4 fL (7.4-10.4); Nucleated Red Blood Cells % 0.1; Platelet Count 305 10^3/uL (150-450); Red Blood Count 4.24 10^6 /uL (4.18-5.48); Red Cell Distribution Width 18 % (10-15); White Blood Count 5.9 10^3/uL (3.5-10.8)
[2019-08-01 06:07] LABS: INR 1.18 (0.82-1.09)
[2019-08-01 06:26] LABS: Albumin 3.3 g/dL (3.2-5.2); Albumin/Globulin Ratio 1.5 (1-3); BUN/Creatinine Ratio 11.9 (8-20); Calcium 8.3 mg/dL (8.6-10.3); EGFR African American 91.2 (>60); EGFR Non-African American 75.4 (>60); Globulin 2.2 g/dL (2-4); Magnesium 1.9 mg/dL (1.9-2.7); Potassium 4.2 mmol/L (3.5-5.0); Total Bilirubin 0.3 mg/dL (0.2-1.0); Total Protein 5.5 g/dL (6.4-8.9)
[2019-08-01] MEDS ORDERED: Tamsulosin CAP* 0.4 MG PO SCH (09:00)
[2019-08-01] MEDS ORDERED: Magnesium Oxide TAB* 400 MG PO SCH (09:00)
[2019-08-01] MEDS ORDERED: CARIPRAZINE 3 MG PO SCH (09:00)
[2019-08-01] MEDS: carBAMazepine TAB(*) 200 MG PO SCH (09:20)
[2019-08-01] MEDS: Clindamycin CAP* 150 MG PO SCH ×2 (09:20→15:25)
[2019-08-01] MEDS: Pantoprazole TAB * 40 MG TAB PO SCH (09:20)
[2019-08-01] MEDS: Divalproex Sprinkle CAP* 125 MG PO SCH ×2 (09:20→16:33)
[2019-08-01] MEDS: Apixaban* 5 MG TAB PO SCH (09:23)
--- NOTE | 2019-08-01 09:32 | ECHO ---
*[facility]* [place] [address] Fax #: [phone] Transthoracic Echocardiogram Patient: Simeon Castellanos : 1960 Study Date: 08/01/2019 Age: 59 Gender: M HR: 73 bpm Height: 62 in /157.5 cm BSA: 1.96 m^2 Weight: 210.6 lb /95.7 kg BMI: 38.6 kg/m^2 *Spearer: * Yumiko Squires *Referring Physician: * Don Leon *Reading Physician: * Violeta Jordan MD Indications: Edema. History: Edema, DVT. Conclusions Summary: - Left ventricle: Systolic function is normal. The estimated ejection fraction is 55-60%. Wall motion is normal; there are no regional wall motion abnormalities. - Tricuspid valve: There is trace regurgitation. - Pulmonic valve: There is trace regurgitation. - No previous echocardiogram available. Study data: Transthoracic echocardiogram. Procedure: Transthoracic echocardiography was performed. Image quality was good. Complete 2D, spectral Doppler, and color flow Doppler. Location: Bedside. Patient status: Observation. Patient room number: 411-2. Findings Left ventricle: The cavity size is normal. Wall thickness is normal. Systolic function is normal. The estimated ejection fraction is 55-60%. Wall motion is normal; there are no regional wall motion abnormalities. Left ventricular diastolic function parameters are normal. Right ventricle: The cavity size is normal. Systolic function is normal. Left atrium: The atrium is normal in size. Right atrium: The atrium is normal in size. Mitral valve: The leaflets are normal thickness. There is no evidence of stenosis. There is no significant regurgitation. Aortic valve: The valve is trileaflet. The leaflets are normal thickness. There is no evidence of stenosis. There is no significant regurgitation. Tricuspid valve: The valve is structurally normal. There is no evidence of stenosis. There is trace regurgitation. Pulmonic valve: The valve is structurally normal. There is no evidence of stenosis. There is trace regurgitation. Aorta: The aortic root appears normal. The aortic arch appears normal. Pericardium: There is no significant pericardial effusion. Pulmonary arteries: Systolic pressure can not be accurately estimated. Systemic veins: Inferior vena cava: The vessel is normal in size. Pulmonary veins: The Pulmonary veins appear normal. Measurements Left ventricle Value Ref Aortic valve Value Ref KAELA, LAX (L) 3.8 cm 4.2 - Peak v, S 1.42 m/sec ---- 5.8 VTI, S 33.7 cm ---- ESD, LAX 2.6 cm 2.5 - Mean grad, S 5.0 mm Hg ---- 4.0 Peak grad, S 8.0 mm Hg ---- FS, LAX (L) -33 % 25 - 43 SAIDA, VTI 2.45 cm^2 ---- PW, ED, LAX (H) 2.4 cm 0.6 - SAIDA, Vmax 2.54 cm^2 ---- 1.0 E', lat omar, TDI 10.5 cm/sec >=10.0 Mitral valve Value Ref E/e', lat omar, TDI 10 -------- Peak E 1.01 m/sec -- -- E', med omar, TDI 11.2 cm/sec >=7.0 Peak A 1.1 m/sec ---- E/e', med omar, TDI 9 -------- Decel time 208 ms -- -- E', avg, TDI 10.9 cm/sec -------- Peak grad, D 4.1 mm Hg -- -- E/e', avg, TDI 9 <=14 Peak E/A ratio 0.9 ---- LVOT Value Ref Pulmonic valve Value Ref Diam, S 2.00 cm -------- Peak v, S 0.84 m/sec ---- Area 3.1 cm^2 -------- Peak grad, S 3.0 mm Hg ---- Peak yocasta, S 1.15 m/sec -------- Peak grad, S 5 mm Hg -------- Aortic root Value Ref Mean grad, S 3 mm Hg -------- Root diam 3.0 cm <4.1 SV 83 ml -------- SV/bsa 42 ml/m^2 -------- Ascending aorta Value Ref AAo AP diam, S 2.6 cm ---- Ventricular septum Value Ref AAo AP diam/bsa, S 1.3 cm/m^2 ---- IVS, ED 1.0 cm 0.6 - 1.0 Aortic arch Value Ref Arch diam 2.4 cm ---- Right ventricle Value Ref KAELA, LAX 2.8 cm -------- Decending aorta Value Ref KAELA minor ax, A4C (H) 3.6 cm 1.9 - oJcelin peak yocasta 0.87 m/sec ---- mid 3.5 Inferior vena cava Value Ref Left atrium Value Ref Diam 1.8 cm ---- ML dim, A4C 4.2 cm -------- SI dim, A4C 5.4 cm -------- Vol/bsa, ES, 1-p 28 ml/m^2 12 - 37 A4C Vol/bsa, ES, A/L 27 ml/m^2 16 - 34 Right atrium Value Ref SI dim, ES 3.8 cm 3.4 - 5.3 ML dim, ES, A4C 3.2 cm 2.6 - 4.4 SI dim, ES, A4C 3.8 cm 3.4 - 5.3 SI dim/bsa, ES, 1.9 cm/m^2 1.8 - A4C 3.0 Legend: (L) and (H) juan carlos values outside specified reference range. Prepared and electronically signed by Violeta Jordan MD 08/01/2019 09:32
[2019-08-01] MEDS ORDERED: Acetaminophen TAB* 325 MG PO ONE (10:20)
[2019-08-01] MEDS ORDERED: Iron Sucrose* 200 MG in NS 0.9% 100 ML* 100 ML IVPB ONE (10:45)
[2019-08-01 13:16] LABS: TSH (Thyroid Stimulating Horm) 5.18 mcIU/mL (0.34-5.60)
[2019-08-01 17:06] VITALS: BP 148/86
--- NOTE | 2019-08-02 13:00 | DS ---
CC: Dr. Brina Evangelista * DISCHARGE SUMMARY: DATE OF ADMISSION: 07/31/19 DATE OF DISCHARGE: 08/01/19 PRIMARY CARE PROVIDER: Dr. Brina Evangelista. MY ATTENDING WHILE IN THE HOSPITAL: Dr. Teodora Villarreal.* (DICTATED BY RAULITO HERNADEZ) PRIMARY DISCHARGE DIAGNOSES: 1. Left lower extremity deep vein thrombosis. 2. Bilateral lower extremity swelling. 3. Possible right lower extremity cellulitis. SECONDARY DISCHARGE DIAGNOSES: 1. Schizoaffective disorder, depressive type. 2. History of gastrointestinal bleeding related to severe erosive esophagitis, mostly resolved. 3. History of partial seizures, stabilized on antiepileptic medication. 4. Bryan esophagus. 5. History of Klebsiella pneumoniae bacteremia. 6. Hiatal hernia. 7. Status post cholecystectomy. 8. Iron deficiency anemia. STUDIES DONE WHILE IN THE HOSPITAL: Venous Doppler study from 07/31/19 shows deep vein thrombosis of the left peroneal veins. Transthoracic echocardiogram read as ejection fraction 55% to 60%, wall motion normal. No regional abnormalities. Tricuspid valve with trace regurgitation, pulmonic valve with trace regurgitation. No previous echocardiogram. Chest thorax CTA shows mild hiatal hernia with mild distention across the thoracic esophagus which may represent reflux. Status post cholecystectomy. No pulmonary embolism, otherwise negative CTA chest. Ultrasound of the liver and the kidneys shows no hepatomegaly, upper normal spleen size, status post cholecystectomy, no ascites. Pancreas unremarkable. MEDICATIONS AT DISCHARGE: 1. Tamsulosin 0.4 mg p.o. daily. 2. Magnesium oxide 800 mg p.o. daily. 3. Carbamazepine 200 mg p.o. b.i.d. 4. Protonix 40 mg p.o. b.i.d. 5. Depakote Sprinkle 250 mg p.o. b.i.d. 6. Cariprazine 3 mg p.o. daily. 7. Tylenol 650 mg p.o. q.6 hours as needed. 8. Apixaban 10 mg p.o. b.i.d. for 6 more days, then 5 mg p.o. b.i.d. ongoing. 9. Clindamycin 300 mg p.o. t.i.d. x15 more doses. 10. Lactobacillus acidophilus 1 tab p.o. daily. New medications at discharge: 1. Tylenol. 2. Apixaban. 3. Clindamycin. 4. Lactobacillus. Medications discontinued at discharge: 1. Ibuprofen 800 mg p.o. q.6-8 hours as needed. 2. Keflex 500 mg p.o. t.i.d. HOSPITAL COURSE: This is a brief summary of the patient's presentation. For more details, please see the history and physical from this author on 07/31/19. In brief, the patient is a 59-year-old male with past medical history significant for the above, who presented to the emergency department after being sent in from his primary care provider with approximately 1 week of bilateral lower extremity redness and pain, worse in the right side with weeping and concern for cellulitis of the right leg. The patient in the emergency department was found to have a left lower extremity DVT with no DVT visualized in his right leg. The patient was initially on Keflex after an oral tooth extraction on 07/28/19, but his lower extremity redness worsened despite this. The patient in the hospital was instructed to keep his legs elevated. The patient was initiated on apixaban and had no signs of GI bleeding. The patient was given 1 dose of IV iron given his iron deficiency anemia. The patient with keeping his legs up felt that his swelling is a little better and the pain in his legs is better. The patient was trialed on LC stockings. The patient had the above studies assessing his kidneys, liver, and heart to assess for the possible causes of his acute onset lower extremity edema given the lack of deep vein thrombosis in his right leg, which is the worse affected leg; however, all of the above tests were unremarkable for causes of bilateral lower extremity edema and the patient is agreeable to symptomatic therapy for his lower legs. The patient was recommended against taking ibuprofen while on Eliquis and in general due to his erosive esophagitis. The patient was stable and amenable for discharge on 08/01/19. PHYSICAL EXAM ON THE DAY OF DISCHARGE: General: The patient is a 59-year-old male who appears stated age and is sitting comfortably on bed, in no acute distress. Vital Signs: Temperature 97.6, pulse rate 86, respiratory rate 22, oxygen saturation 98% on room air, blood pressure 148/86. HEENT: Head: Normocephalic, atraumatic. Sclerae anicteric. No conjunctival injection. Nasal mucosa moist. Oral mucosa moist. No oropharyngeal erythema, discharge, or exudate. Neck: Supple and nontender. No lymphadenopathy. No carotid bruits auscultated. No JVD. Cardiac: Regular rate and rhythm. No clicks, murmurs, gallops, or rubs. Pulses are 2+ in dorsalis pedis, posterior tibialis , and radial areas. 3+ bilateral lower extremity edema noted with weeping and erythema, unchanged from previous exam. Respiratory: Clear to auscultation bilaterally. No wheezes, rales, or rhonchi. Good air exchange bilaterally. Abdomen: Soft, nontender, and nondistended. Bowel sounds present and normoactive in all 4 quadrants. No hepatosplenomegaly. No abdominal bruits auscultated. No hepatojugular reflux. Genitourinary: No suprapubic or CVA tenderness. Skin: Above noted weeping and erythema bilateral lower extremities , no other rash. Neurologic: Cranial nerves II through XII intact. No focal deficits. Alert and oriented x3. Psychiatric: Flat affect, but otherwise pleasant and cooperative. DISCHARGE PLAN BY PROBLEM: 1. Left lower extremity DVT, bilateral lower extremity edema. Given the acute onset of the patient's bilateral lower extremity edema, DVT is the most likely cause, though this does not explain the swelling in his right lower extremity. The patient will be treated with Eliquis as above as well as elevation of his legs and compression stockings. Further testing after an appropriate amount of therapy if his lower extremity edema does not continue to resolve should be undertaken, possibly with referral to a vascular specialist. The patient should monitor closely for bleeding given his history of GI bleeding and should have a repeat CBC and BMP on his followup with his primary care provider. The patient was not started on Lasix during his hospital stay. If the patient's edema does not improve with the above treatment, diuretics could be considered. 2. History of hiatal hernia, erosive esophagitis, and GI bleeding. The patient will be again monitored closely for signs of GI bleeding. The patient will be continued on his b.i.d. PPI per his frame coverer. 3. Iron deficiency anemia. The patient received 1 dose of iron sucrose while in the hospital. The patient should receive 4 more doses when available, this should be set up through his primary care provider on a nonemergent basis. The patient was not prescribed and likely should not be prescribed iron supplements at this time until cleared through his frame coverer due to his severe erosive esophagitis and the irritating nature of oral iron. 4. Schizoaffective disorder. Continue the patient's carbamazepine, Depakote, and Vraylar. 5. Possible right lower extremity cellulitis. Continue the patient on 5 more days of clindamycin to cover staph, strep, and oral anaerobic bacteria after his tooth extraction. 6. Seizure disorder. Continue the patient's Tegretol and Depakote as above. Follow up with Neurology. DISPOSITION: Home. CONDITION: Stable. TIME SPENT: Approximately 60 minutes were spent on the discharge of this patient, 30 of which were spent [id number] with the patient obtaining history and physical and discussing treatment plan. RAULITO HERNADEZ [id number]/CPS #: [id number] MANDY
== END 2019-08-01 19:20 | disposition home or self-care (01) ==
LOC: ED 13:57 → MED 17:59
PROVIDERS: ADMIT Student in an Organized Health Care Education/Training Program; ATTEND Internal Medicine
DX: R60.0 Localized edema (principal); F25.9 Schizoaffective disorder, unspecified; K92.2 Gastrointestinal hemorrhage, unspecified; G40.909 Epilepsy, unspecified, not intractable, without status epilepticus; K22.70 Barrett's esophagus without dysplasia; K44.9 Diaphragmatic hernia without obstruction or gangrene; D50.9 Iron deficiency anemia, unspecified; Z90.49 Acquired absence of other specified parts of digestive tract; Z79.899 Other long term (current) drug therapy
CPT/HCPCS: 36415; 71275; 76705; 80053; 81003; 82728; 83540; 83550; 83605; 83735; 83880; 84443; 84484; 84550; 85025; 85610; 85652; 86140; 87040; 93306; 93970; 96365; 96366; 99284; A9270-GY; G0378; J0696; J1756; Q9967